=== PATIENT | female | born 1935 | race Caucasian/White ===

== ENCOUNTER 2016-10-18 21:02 | Emergency (ER) | payer OTHER ==
[2016-10-18 21:28] VITALS: TEMP 98.4; O2SAT 94
[2016-10-18] MEDS ORDERED: PROPARACAINE 0.5% 15 ML OPHT DROP ONE (22:25)
[2016-10-18] MEDS ORDERED: TETRACAINE 0.5% 15 ML OPHT.BTL EACHEYE ONE (22:29)
--- NOTE | 2016-10-18 22:29 | EDPHY ---
H & P Stated Complaint: c/o redness/burning in bilat eyes x approx 2 hrs, gardening when started Time Seen by Provider: 10/18/16 22:22 HPI/ROS: HPI The patient presents with bilateral eye pain for the last 2 hours. She was doing bleeding in the garden for several hours. She went inside and tried to insert her contact lenses and touched her eyes. A few minutes after she experienced a burning sensation in her eyes. She removed her contacts and flushed her eyes with water but had continued pain. She comes in now. She is having clear drainage and redness from both of her eyes. The pain is been constant, moderate in severity. She does not have any changes in her vision.. REVIEW OF SYSTEMS Constitutional: No fever, no chills. Eyes: Positive for discharge. ENT: No sore throat. Skin: No rashes. Neurological: No headache. PHYSICAL General Appearance: Alert, no distress Eyes: Pupils equal and round no pallor or injection EYE EXAM Visual Acuity: noted from Nurse's notes. Pupils: equal round and reactive to light EOMI Skin: Mild periorbital erythema Conjunctivae: Diffusely injected, no discharge ENT, Mouth: Mucous membranes moist Respiratory: Breathing comfortably Neurological: A&O, moves all extremities Skin: Warm and dry, no rashes Musculoskeletal: Neck is supple non tender Extremities: symmetrical, full range of motion Psychiatric: Patient is oriented X 3, there is no agitation Source: Patient Exam Limitations: No limitations - Personal History Tetanus Vaccine Date: <10 years - Medical/Surgical History Hx Asthma: No Hx Chronic Respiratory Disease: No Hx Diabetes: No Hx Cardiac Disease: Yes Hx Renal Disease: No Hx Cirrhosis: No Hx Alcoholism: No Hx HIV/AIDS: No Hx Splenectomy or Spleen Trauma: No Other PMH: htn, aortic stenosis, anxiety, MVR 06/22/13, aortic valve replacement , lacrimal duct obst surg, appendectomy, nasal surg - Social History Smoking Status: Never smoked Constitutional: Initial Vital Signs Temperature (C) 36.9 C 10/18/16 21:24 Heart Rate 81 10/18/16 21:24 Respiratory Rate 18 10/18/16 21:24 Blood Pressure 161/99 H 10/18/16 21:24 O2 Sat (%) 94 10/18/16 21:24 O2 Delivery Mode Room Air Allergies/Adverse Reactions: azithromycin Allergy (Verified 10/18/16 21:28) paroxetine HCl [From Paxil] Allergy (Verified 10/18/16 21:28) malaria medication Allergy (Uncoded 11/12/13 22:50) Home Medications: Medication Instructions Recorded Aspirin [Aspirin 81mg (OTC)] 07/06/13 Cholecalciferol Vit D3 [Vitamin D3 07/06/13 (OTC)] Cyanocobalamin [Vitamin B12 (OTC)] 07/06/13 Olmesartan Medoxomil [Benicar] 0 mg PO 07/06/13 Fish Oil 1,[address] 10/18/16 Medical Decision Making Differential Diagnosis: This is an 81-year-old female who presents with bilateral eye pain which occurred after doing reading in the garden and then inserting contact lenses. She has normal visual acuity. I feel there is some sort of irritant from her wheezing that was on her hands that then entered her eyes when she put in her contact lenses. She has since removed them. Plan for tetracaine and eye irrigation in the emergency room. Differential diagnosis includes atopic conjunctivitis, viral conjunctivitis, less likely bacterial conjunctivitis. After irrigation, the patient felt much better. I will discharge her with artificial tears and antibiotic eyedrops. I have instructed her to use cool compresses. Upon further history it appears that the patient was weeding [place] splurge which likely got into her eyes. - Data Points Medications Given: Discontinued Medications Diphenhydramine HCl (Benadryl) 25 mg PO EDNOW ONE Stop: 10/18/16 23:00 Last Admin: 10/18/16 23:21 Dose: 25 mg Ofloxacin (Ocuflox 0.3% Opht Drops Prepack) 1 btl TAKEHOME EDNOW ONE Stop: 10/18/16 23:01 Last Admin: 10/18/16 23:19 Dose: 1 btl Tetracaine HCl (Tetracaine 0.5%) 1 drops EACHEYE ONCE ONE Stop: 10/18/16 22:30 Last Admin: 10/18/16 22:38 Dose: 1 drop Departure - Departure Disposition: Home, Routine, Self-Care Clinical Impression: Conjunctivitis Condition: Good Instructions: Conjunctivitis (ED) Additional Instructions: Please avoid wearing her contact lenses for the next 1 week. You should follow up with Ophthalmology if your symptoms continue at all. Referrals: Parker Puentes MD [Primary Care Provider] - As per Instructions Rakesh Mchugh MD [Medical Doctor] - As per Instructions
[2016-10-18] MEDS ORDERED: diphenhydrAMINE 25 MG CAP PO ONE (22:59)
[2016-10-18] MEDS ORDERED: OFLOXACIN 0.3% SOLN PREPACK OPHT.BTL TAKEHOME ONE (23:00)
[2016-10-18 23:19] VITALS: BP 129/80; PULSE 80; RESP 16
== END 2016-10-18 23:24 | disposition home or self-care (01) ==
DX: H10.9 Unspecified conjunctivitis (principal); I10 Essential (primary) hypertension; Z79.82 Long term (current) use of aspirin

== ENCOUNTER → 2016-12-06 | Outpatient (CLI) | payer OTHER | LOC: FIMAGING 11:03 | PROVIDERS: ATTEND Physician Assistant | DX: R04.2 Hemoptysis (principal); I25.10 Atherosclerotic heart disease of native coronary artery without angina pectoris; R93.8 Abnormal findings on diagnostic imaging of other specified body structures; R59.9 Enlarged lymph nodes, unspecified ==

== ENCOUNTER 2017-01-01 16:24 | Emergency (ER) | payer OTHER ==
--- NOTE | 2017-01-01 16:58 | EDPHY ---
HPI/HX/ROS/PE/MDM Narrative: CHIEF COMPLAINT:Abnormal vision, chest pain HPI: The patient is an 81-year-old female with a history of CAD and aortic valve replacement. She describes substernal/left-sided chest pressure that has been present for a week. No clear exacerbating or relieving factors. She also states that earlier today she leaned forward and felt like her eyes were not aligning properly. She is unable to tell me whether she had double vision at that time or not. She states those symptoms lasted for less than a minute. She denies vision loss. She is now back to normal, but concerned about possible stroke. She takes a daily baby aspirin. REVIEW OF SYSTEMS: Aside from elements discussed in the HPI, a comprehensive 10-point review of systems was reviewed and is negative. PMH:Includes aortic valve repair, CAD. No history of CVA. SOCIAL HISTORY: Denies alcohol or drug abuse. PHYSICAL EXAM: General:Patient is alert, in no acute distress. ENT:Eyes are normal to inspection. ENT inspection normal. Neck: Normal inspection. Full range of motion. Respiratory:No respiratory distress. Breath sounds normal bilaterally. Cardiovascular: Regular rate and rhythm. Strong peripheral pulses. Normal cap refill. Abdomen:The abdomen is nontender to palpation. There are no peritoneal signs. There are normal bowel sounds. Back: Normal to inspection. No tenderness to palpation. Skin: Normal color. No rash. Warm and dry. Extremities: Normal appearance. Full range of motion. Neuro: Oriented x3. Normal motor function. Normal sensory function. No pronator drift. No dysmetria. Normal CN II-XII. ED Course: On re-evaluation at 7:00 p.m., the patient continues to feel fine and asymptomatic. I offered her admission the hospital for further observation but she declines. MDM: This patient presents with a very brief episode of what sounds like possible diplopia although this is an atypical description, as well as the approximately 1 week of constant mild chest pain. Regarding her chest pain, she has a negative EKG and troponin after a significant amount of time with constant chest pain, so I think that acute coronary syndrome is very unlikely. There is no evidence of pneumonia, PE or thoracic aortic dissection. Her brief vision issue is difficult to pin down. She has a normal MRI which excludes significant TECHNICAL RECRUITER disease such as stroke or bleed. I think she requires further neurology evaluation for this as well as an incidental finding of scattered calcifications of her brain. She was informed of this finding as well as the need for follow-up. - Data Points Imaging Results: Imaging Impressions Chest X-Ray 01/01/17 16:44 Impression: 1. Suspect scarring/atelectasis at the left lung base. 2. No definite acute cardiopulmonary abnormality is identified. Brain MRI 01/01/17 17:25 Impression: 1. No visible etiology for the patient's diplopia. 2. Multiple new small bilateral foci of susceptibility-weighted hypointensity, suggesting hemosiderin deposition, which could be related to interval trauma, amyloid angiopathy, occult vascular malformations, or other etiology. Interval development of calcifications could also have this appearance. 3. Atrophy, with white matter change most likely related to chronic microvascular ischemic gliosis. Findings discussed with Eduin Bhatt M.D., on January 01, 2017 at 1848. Laboratory Results: Laboratory Results 01/01/17 17:10 01/01/17 17:10 01/01/17 01/01/17 17:10 17:10 WBC 6.05 10^3/uL 10^3/uL (3.80-9.50) RBC 5.03 10^6/uL 10^6/uL (4.18-5.33) Hgb 14.8 g/dL g/dL (12.6-16.3) Hct 43.2 % % (38.0-47.0) MCV 85.9 fL fL (81.5-99.8) MCH 29.4 pg pg (27.9-34.1) MCHC 34.3 g/dL g/dL (32.4-36.7) RDW 12.9 % % (11.5-15.2) Plt Count 169 10^3/uL 10^3/uL (150-400) MPV 10.1 fL fL (8.7-11.7) Neut % (Auto) 66.4 % % (39.3-74.2) Lymph % (Auto) 22.1 % % (15.0-45.0) [place] % (Auto) 9.1 % % (4.5-13.0) Eos % (Auto) 1.3 % % (0.6-7.6) Baso % (Auto) 0.8 % % (0.3-1.7) Nucleat RBC Rel Count 0.0 % % (0.0-0.2) Absolute Neuts (auto) 4.01 10^3/uL 10^3/uL (1.70-6.50) Absolute Lymphs (auto) 1.34 10^3/uL 10^3/uL (1.00-3.00) Absolute Monos (auto) 0.55 10^3/uL 10^3/uL (0.30-0.80) Absolute Eos (auto) 0.08 10^3/uL 10^3/uL (0.03-0.40) Absolute Basos (auto) 0.05 10^3/uL 10^3/uL (0.02-0.10) Absolute Nucleated RBC 0.00 10^3/uL 10^3/uL (0-0.01) Immature Gran % 0.3 % % (0.0-1.1) Immature Gran # 0.02 10^3/uL 10^3/uL (0.00-0.10) Sodium 139 mEq/L mEq/L (134-144) Potassium 3.8 mEq/L mEq/L (3.5-5.2) Chloride 102 mEq/L mEq/L (97-110) Carbon Dioxide 22 mEq/l mEq/l (22-31) Anion Gap 15 mEq/L mEq/L (8-16) BUN 17 mg/dL mg/dL (7-23) Creatinine 0.7 mg/dL mg/dL (0.6-1.0) Estimated GFR > 60 Glucose 93 mg/dL mg/dL (70-100) Calcium 10.0 mg/dL mg/dL (8.5-10.4) Troponin I < 0.012 ng/mL ng/mL (0.000-0.034) General Time Seen by Provider: 01/01/17 16:41 Initial Vital Signs: Initial Vital Signs Temperature (C) 36.8 C 01/01/17 16:29 Heart Rate 96 01/01/17 16:29 Respiratory Rate 16 01/01/17 16:29 Blood Pressure 194/112 H 01/01/17 16:29 O2 Sat (%) 94 01/01/17 16:29 O2 Delivery Mode Room Air Allergies/Adverse Reactions: azithromycin Allergy (Verified 01/01/17 16:28) paroxetine HCl [From Paxil] Allergy (Verified 01/01/17 16:28) malaria medication Allergy (Uncoded 11/12/13 22:50) Home Medications: Medication Instructions Recorded Aspirin [Aspirin 81mg (OTC)] 07/06/13 Cholecalciferol Vit D3 [Vitamin D3 07/06/13 (OTC)] Cyanocobalamin [Vitamin B12 (OTC)] 07/06/13 Olmesartan Medoxomil [Benicar] 0 mg PO 07/06/13 Fish Oil 1,[address] 10/18/16 Pravastatin Sodium 01/01/17 Departure - Departure Disposition: Home, Routine, Self-Care Clinical Impression: Chest pain Condition: Good Instructions: Chest Pain (ED) Additional Instructions: Follow-up with your primary doctor within 72 hours. Return to the Emergency Department for fever, chest pain, shortness of breath, increasing pain or other worsening of condition. Follow up with a eyelet cutter for further testing, as soon as possible, within one week. We would be happy to reevaluate you and observe you in the hospital at any time. Your head CT shows some very small calcifications in your brain, which are likely not related to your symptoms. We recommend you follow-up with a neurologist for further evaluation within on week. Referrals: Parker Puentes MD [Primary Care Provider] - As per Instructions
--- NOTE | 2017-01-01 17:00 | CPEKG ---
Heart Rate: 83 RR Interval: 723 P-R Interval: 176 QRSD Interval: 86 QT Interval: 388 QTC Interval: 456 P [place]: 31 QRS [place]: 2 T Wave [place]: 60 EKG Severity - NORMAL ECG - EKG Impression: SINUS RHYTHM Electronically Signed By: Stephane Dunham 03-Jan-2017 08:09:28
[2017-01-01 17:17] LABS: % IMMATURE GRANULYOCYTES 0.3 % (0.0-1.1); ABSOLUTE IMMATURE GRANULOCYTES 0.02 10^3/uL (0.00-0.10); ADD DIFF? NO; ADD MORPH? NO; ADD SCAN? NO; ATYPICAL LYMPHOCYTE FLAG 0 (0-99); FRAGMENT RBC FLAG 0 (0-99); HEMATOCRIT 43.2 % (38.0-47.0); HEMOGLOBIN 14.8 g/dL (12.6-16.3); LEFT SHIFT FLG 10 (0-99); LIPEMIA HEMOLYSIS FLAG 90 (0-99); MEAN CELL HEMOGLOBIN 29.4 pg (27.9-34.1); MEAN CELL HEMOGLOBIN CONCENTR. 34.3 g/dL (32.4-36.7); MEAN CELL VOLUME 85.9 fL (81.5-99.8); MEAN PLATELET VOLUME 10.1 fL (8.7-11.7); PLATELET CLUMPS FLAG 10 (0-99); PLATELET COUNT 169 10^3/uL (150-400); RED BLOOD CELL COUNT 5.03 10^6/uL (4.18-5.33); RED CELL DISTRIBUTION WIDTH 12.9 % (11.5-15.2)
[2017-01-01 17:30] LABS: ANION GAP 15 mEq/L (8-16); CARBON DIOXIDE 22 mEq/l (22-31); CHLORIDE 102 mEq/L (97-110); POTASSIUM 3.8 mEq/L (3.5-5.2); SODIUM 139 mEq/L (134-144)
[2017-01-01 17:31] LABS: CREATININE 0.7 mg/dL (0.6-1.0); GLOMERULAR FILTRATION RATE > 60; GLUCOSE 93 mg/dL (70-100)
[2017-01-01 17:42] LABS: TROPONIN I < 0.012 ng/mL (0.000-0.034)
[2017-01-01 19:49] VITALS: BP 161/94; PULSE 87; RESP 16; TEMP 100.2; O2SAT 93
== END 2017-01-01 19:38 | disposition home or self-care (01) ==
DX: R07.89 Other chest pain (principal); I25.10 Atherosclerotic heart disease of native coronary artery without angina pectoris; Z79.82 Long term (current) use of aspirin

== ENCOUNTER → 2017-02-22 | Outpatient (CLI) | payer OTHER | LOC: FIMAGING 15:45 | PROVIDERS: ATTEND Nurse Practitioner Women's Health | DX: Z12.31 Encounter for screening mammogram for malignant neoplasm of breast (principal) | CPT/HCPCS: G0202 ==

== ENCOUNTER → 2017-03-29 | Outpatient (CLI) | payer OTHER | LOC: EEVIPCON 10:28 → FIMAGING 10:28 | PROVIDERS: ATTEND Nurse Practitioner Women's Health | DX: R97.1 Elevated cancer antigen 125 [CA 125] (principal); N83.201 Unspecified ovarian cyst, right side; D25.9 Leiomyoma of uterus, unspecified ==

== ENCOUNTER → 2017-06-14 | Outpatient (CLI) | payer OTHER | LOC: FIMAGING 09:34 | PROVIDERS: ATTEND Nurse Practitioner Women's Health | DX: Z09 Encounter for follow-up examination after completed treatment for conditions other than malignant neoplasm (principal); D25.9 Leiomyoma of uterus, unspecified; N83.8 Other noninflammatory disorders of ovary, fallopian tube and broad ligament ==

== ENCOUNTER 2017-06-17 19:48 | Emergency (ER) | payer OTHER ==
[2017-06-17 19:54] VITALS: TEMP 98.8
--- NOTE | 2017-06-17 20:03 | EDPHY ---
H & P Time Seen by Provider: 06/17/17 19:58 HPI/ROS: CHIEF COMPLAINT: Chest pain HISTORY OF PRESENT ILLNESS: This patient is an 81 year old female with history of CAD and aortic valve replacement complaining of chest pain. She is currently undergoing radiation treatment for basal cell carcinoma at the tip of her nose. Following her treatment, her nose and eyes felt very dry and she was evaluated by an automotive collision repair instructor. She used a cream in her nose, which helped the dryness. Over the past few days, she has developed a persistent bad smell in her nose. This morning, she woke with left-sided chest pain which has worsened throughout the day. This discomfort is increased with deep inspiration and with movement. She has felt mildly short of breath with exertion. She has history of a severe eye infection following her aortic valve replacement, and is concerned regarding the possibility of complications from a possible nasal infection including sepsis or endocarditis. She called an infections disease specialist regarding this, who recommended she present to the emergency department for evaluation of her concerns. The patient takes ASA 81mg daily and is not otherwise anticoagulated. She denies fever, vomiting, diarrhea, urinary complaints, or other associated symptoms. REVIEW OF SYSTEMS: A 10 point review of systems was performed and is negative with the exception of the elements mentioned in the history of present illness. 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 at bedside. Retired. Nonsmoker. Smoking Status: Never smoked Physical Exam: General Appearance: Alert, pleasant, nontoxic Eyes: Pupils equal and round, no conjunctival injection ENT, Mouth: Maceration of the nasal septum, no drainage Neck: Normal inspection, no adenopathy Respiratory: Lungs are clear to auscultation Cardiovascular: Regular rate and rhythm Gastrointestinal: Abdomen is soft and non-tender Neurological: A&O, nonfocal exam Skin: Warm and dry Extremities: normal inspection Psychiatric: Mood and affect normal Constitutional: Initial Vital Signs Temperature (C) 37.1 C 06/17/17 19:51 Heart Rate 100 06/17/17 19:51 Respiratory Rate 22 H 06/17/17 19:51 Blood Pressure 157/94 H 06/17/17 19:51 O2 Sat (%) 95 06/17/17 19:51 O2 Delivery Mode Room Air Allergies/Adverse Reactions: azithromycin Allergy (Verified 01/01/17 16:28) paroxetine HCl [From Paxil] Allergy (Verified 01/01/17 16:28) malaria medication Allergy (Uncoded 11/12/13 22:50) Home Medications: Medication Instructions Recorded Aspirin [Aspirin 81mg (OTC)] 07/06/13 Cholecalciferol Vit D3 [Vitamin D3 07/06/13 (OTC)] Cyanocobalamin [Vitamin B12 (OTC)] 07/06/13 Olmesartan Medoxomil [Benicar] 0 mg PO 07/06/13 Fish Oil 1,[address] 10/18/16 Pravastatin Sodium 01/01/17 Ranitidine HCl 06/17/17 Sulfamethox/Tmp 800/160 mg 1 tab PO BID #14 tab 06/17/17 [Bactrim Ds] Medical Decision Making - Diagnostics EKG Interpretation: EKG interpreted by me reveals normal sinus rhythm, rate 91, poor R-wave progression, no ST or T segment changes. Interpretation: Abnormal EKG Imaging Results: Chest X-Ray 06/17/17 20:00 Impression: No evidence for acute cardiopulmonary abnormality. Chronic findings, as above, which are stable. ED Course/Re-evaluation: After an extensive conversation with this patient, the patient appears to be most concerned about the possibility of endocarditis. She is concerned that she has a sinus infection, which has been untreated and has now led to endocarditis. However, she has not had a fever, chills or other systemic symptoms. Her intranasal exam reveals maceration of the nasal septum; she does not have facial pain; I do not suspect sinusitis, but given foul odor, will plan to place pt on abx. Labs/CXR ordered. CTA ordered because of elevated ddimer. CTA negative, results d/w pt and . I do not suspect endocarditis; afebrile, no leukocytosis. Will place pt on abx for foul intranasal odor, and have her f/u with ENT. Prefers to not take Augmentin, will place on Bactrim. Differential Diagnosis: Differential diagnosis includes though it is not limited to pneumonia, pneumothorax, pulmonary embolism, aortic dissection, pericarditis, acute coronary syndrome. - Data Points Laboratory Results: Laboratory Results 06/17/17 20:30 06/17/17 20:30 Medications Given: Discontinued Medications Trimethoprim/Sulfamethoxazole (Bactrim Ds) 1 ea PO EDNOW ONE PRN Reason: Protocol Stop: 06/17/17 21:57 Last Admin: 06/17/17 22:01 Dose: 1 ea Departure - Departure Disposition: Home, Routine, Self-Care Clinical Impression: Chest pain Qualifiers: Chest pain type: intercostal pain Qualified Code(s): R07.82 - Intercostal pain Condition: Good Instructions: Chest Pain (ED) Additional Instructions: 1. Follow up with your Ear, Nose, and Throat provider for re-evaluation of your nose. 2. Take Bactrim as prescribed. 3. Return to the Emergency Department for fever, chest pain, shortness of breath , increasing pain or other worsening of condition. Referrals: Elie Rojas MD [Medical Doctor] - As per Instructions Prescriptions: Sulfamethox/Tmp 800/160 mg [Bactrim Ds] 1 tab PO BID #14 tab Report Scribed for: Mariza Shay Report Scribed by: Ami Cano Date of Report: 06/17/17 Time of Report: 20:03 Physician Review and Approval Statement: 06/17/17 20:03 Portions of this note were transcribed by a biomedical analytical scientist. I personally performed a history, physical exam, medical decision making, and confirmed accuracy of information the transcribed note.
--- NOTE | 2017-06-17 20:05 | CPEKG ---
Heart Rate: 91 RR Interval: 659 P-R Interval: 184 QRSD Interval: 86 QT Interval: 364 QTC Interval: 448 P [place]: 42 QRS [place]: 44 T Wave [place]: 63 EKG Severity - ABNORMAL ECG - EKG Impression: SINUS RHYTHM EKG Impression: ABNRM R PROG, CONSIDER ASMI OR LEAD PLACEMENT Electronically Signed By: Mariza Shay 17-Jun-2017 22:58:06
[2017-06-17 20:44] LABS: PLATELET COUNT 173 10^3/uL (150-400)
[2017-06-17] MEDS ORDERED: IOPAMIDOL (ISOVUE 370) 100 ML BTL IV ONE (21:20)
[2017-06-17 21:48] VITALS: RESP 16
[2017-06-17] MEDS ORDERED: SULFAMETHOX/TMP 800/160 MG 1 TAB PO ONE (21:56)
[2017-06-17 22:08] VITALS: BP 135/89; PULSE 79; O2SAT 97
== END 2017-06-17 22:08 | disposition home or self-care (01) ==
DX: R07.82 Intercostal pain (principal); I10 Essential (primary) hypertension; I25.10 Atherosclerotic heart disease of native coronary artery without angina pectoris; Z79.82 Long term (current) use of aspirin
CPT/HCPCS: 71046; 71275; 93005; 99285; Q9967

== ENCOUNTER → 2017-09-27 | Outpatient (CLI) | payer OTHER | LOC: BHFA 09:30 | PROVIDERS: ATTEND Internal Medicine Cardiovascular Disease | DX: I25.10 Atherosclerotic heart disease of native coronary artery without angina pectoris (principal); I10 Essential (primary) hypertension; I38 Endocarditis, valve unspecified; R06.02 Shortness of breath | CPT/HCPCS: 78452; 93017; A9500; J2785 ==

== ENCOUNTER 2017-10-04 10:36 | Inpatient (IN) | payer OTHER ==
[2017-10-04 16:05] LABS: PLATELET COUNT 185 10^3/uL (150-400)
[2017-10-04] MEDS ORDERED: LORazepam 1 MG TAB PO PRN (16:07)
--- NOTE | 2017-10-04 17:07 | GHP ---
[f rep st] HISTORY AND PHYSICAL DATE OF ADMISSION: 10/04/2017 HISTORY OF PRESENT ILLNESS: The patient is an 82-year-old female with a history of aortic valve repl acement as well as blurred vision for somewhere between 2 weeks and 3-6 months, who has recently been seen by her clay temperer son with a possible visual field cut. She had an outpatient MRI reveali ng some infiltration of her retroorbital muscles. She had a biopsy of edematous muscle in her left t emporal region. She is referred today for IV steroids and ongoing workup. The patient has no fever. She has had 11-pound weight loss, some subjective chills, but no drenching fevers. She does not have rash on her skin, swelling in her joints. She has no personal or family history of rheumatologic disease. She had recent thyroid studies that were normal. She was seen in this ER in June of this year with blurred vision. A brain MRI at that time did not show any evidenc e of retroorbital findings. I reviewed and interpreted those images myself and compared them to her recent [id number] MRI. I discussed the case at length with Dr. Mera Ojeda. She has not had shor tness of breath or cough. She does not take blood thinners. She has not had nausea, vomiting, or di arrhea. She has not noticed blood in her urine. She has recently traveled to [facility]. Review of systems: Complete 10-point review of systems conducted negative except as noted in the HPI . PAST MEDICAL HISTORY: Aortic valve replacement, 2013. She had an orbital cellulitis sometime after that, requiring IV antibiotics and some surgical drainage. She had a recent ER visit for a possible nasal infection that was treated with Bactrim. Hypertension. Hyperlipidemia. SOCIAL HISTORY: She lives part-time in [place], part-time in [place], [place]. No tobacco. No alc ohol. FAMILY HISTORY: Son is at the bedside, has thyroid issues. ALLERGIES: Azithromycin, paroxetine, and malaria medication. HOME MEDICATIONS: Pending at this time. In the past, that include aspirin, vitamin D3, cyanocobalam in, fish oil, olmesartan, ranitidine. PHYSICAL EXAM: VITALS: Today blood pressure 142/73. Pulse 84. Breathing 16 times a minute. 90% o n room air. GENERAL: No acute distress. HEENT: Sclerae anicteric. She has some swollen muscle on the left side of her face. Her right eye is normal. I did not do visual field cut or funduscopic e xam. Oropharynx is clear. Mucous membranes are moist. NECK: Supple. No lymphadenopathy or JVD. LUNGS: Clear to auscultation bilaterally. HEART: S1, S2. There is a systolic murmur heard at the left lower sternal border. ABDOMEN: Soft, nontender, nondistended. LOWER EXTREMITIES: No edema. Calves nontender. Her ankles, knees, elbows, and shoulders are without warmth or erythema. NEUROLOG IC: Grossly nonfocal. LABS: Multiple labs are pending at this time. She has a history of normal CBC and chem-7. She has recent thyroid studies just 10 days ago that are normal. MRIs are as discussed in the HPI. I discus sed the case with Dr. Mera Ojeda. REVIEW OF SYSTEMS: Patient presents with possible visual loss with retroorbital findings concerning for possible lymphoma. IMPRESSION AND PLAN: 1. Visual loss. She had a recent biopsy, although it was not of her temporal artery. It is reasona ble to consider temporal arteritis as well as lymphoma in a variety of rheumatologic conditions. Her biopsy has been performed; it is pending at this time. We will go ahead and start her on pulsed dos e steroids. 2. She had a large rheumatologic and infectious workup. 3. History of aortic valve replacement. The patient is not anticoagulated. She is not in heart darrell lure. 4. Hypertension. We will continue her medicines once they have been reconciled. 5. Prophylaxis. Patient may require further biopsies. Will follow for now. Will go with SCDs. 6. Disposition: Inpatient status for now. Will follow. /[id number]/MODL
[2017-10-04] MEDS ORDERED: IOPAMIDOL (ISOVUE-300) 100 ML BTL ONE ×2 (17:45→22:12)
[2017-10-04] MEDS: LORazepam 0.5 MG TAB PO PRN (20:18)
[2017-10-04] MEDS: methylPREDNISolone SOD SUCC 500 MG in D5W 100 ML IV SCH (20:18)
[2017-10-04] MEDS: MAGNESIUM OXIDE 400 MG TAB PO SCH (21:28)
[2017-10-04] MEDS: PRAVASTATIN SODIUM 20 MG TAB PO SCH (21:28)
--- NOTE | 2017-10-04 23:53 | GCON ---
[f rep st] CONSULTATION DATE OF CONSULTATION: 10/04/2017 REASON FOR CONSULTATION: Bilateral orbital masses. HISTORY OF PRESENT ILLNESS: Mrs. Awad is an 82-year-old woman admitted today for further evaluation of bilateral orbital masses and loss of vision. She reports visual difficulties beginning several months ago. Her son-in-law, Sury Lui Garcia, is an software design analyst in [place]. She spends part of her time in [place] and part of her time in [place]. She reports that her vision has been worsening. Her PCP in [place] noted swelling over her left face ( druze), which she had not noticed. She returned to [place] a few weeks ago. Her son-in-law noticed the swelling and ordered an MRI. This was performed yesterday at [place]. This demonstrated enlargement of the temporalis muscles bilaterally, left greater than right. No focal enhancing mass. Soft tissue masses were seen in the orbital apices bilaterally. Right orbital apex mass measured 1.9 x 1.6 cm, left orbital apex mass measured 1.5 x 0.9 cm. This is mentioned only in the addendum, which also reports "infiltrative lesions above the maxillary sinuses inferiorly." Lymphoma was suggested. Her son-in- law's partner, Dr. Gordon Riddle, an oculoplastic surgeon, performed a biopsy in the office this morning of the left temporal abnormality. This was delivered to the pathology department at [facility] this morning. Mrs. Awad reports no eye pain, photophobia, diplopia. She has felt that she has had some low-grade fevers and sweats over the last few weeks. She reports losing weight, unknown amount. PAST MEDICAL HISTORY: 1. Status post prosthetic aortic valve (for aortic stenosis). 2. Coronary artery disease. 3. Hyperlipidemia. 4. Hypertension. HEALTH CARE MAINTENANCE: She reports a colonoscopy at some point; she cannot recall when. She reports doing Cologuard testing last year. Normal screening mammogram, 02/2017. PAST SURGICAL HISTORY: 1. Aortic valve replacement (bovine AVR by Dr. Pike), 06/2013. 2. Appendectomy. 3. Nasal fracture repair. 4. Ovarian cystectomy. FAMILY HISTORY: No family history of malignancy. SOCIAL HISTORY: She is . She has a son and a daughter. Occasional alcohol. Nonsmoker. She and her live in [place]. REVIEW OF SYSTEMS: CONSTITUTIONAL: Per HPI. HEENT: Per HPI. CARDIOVASCULAR : No exertional chest pain, lower extremity edema, PND, orthopnea. RESPIRATORY : She reports a consultation at [facility] for bronchitis. No specific diagnosis was made. She had a chest CT in November for a cough and 1 episode of hemoptysis. This demonstrated shotty bilateral axillary adenopathy (largest node on the left, 1.6 cm). Partially calcified mediastinal nodes. Abnormal thickening was seen of the subglottic tracheal mucosa. She had a bronchoscopy with Dr. Raphael. I do not have a report. She reports this was unremarkable. No new respiratory symptoms. GI: No dysphagia, odynophagia, abdominal pain, diarrhea, constipation, melena, bright red blood per rectum. LYMPH: No lymphadenopathy. HEMATOLOGIC: No bleeding or bruising. NEUROLOGIC: No new symptoms. MUSCULOSKELETAL: No jaw claudication. Tenderness over the temporal muscles. No new bony complaints. PHYSICAL EXAM: VITAL SIGNS: Blood pressure 142/73, heart rate 85, respirations 16, 90% on room air. GENERAL: She is accompanied by her and son. She is alert, oriented, and in no acute distress. HEENT: No scleral icterus. EOMI. No proptosis. No conjunctivitis. Visible swelling over the left druze with recent incision. NECK: Supple. NODES: No supraclavicular, axillary, inguinal lymphadenopathy. CARDIOVASCULAR: Regular rate and rhythm. No edema. LUNGS: Clear to auscultation bilaterally. ABDOMEN: Soft, nontender , nondistended, without palpable masses. SKIN: Left temporal incision as above. No petechiae, ecchymoses. NEUROLOGIC: Grossly nonfocal. LABORATORY DATA: (09/27/2017) Normal CBC. ESR 14. Normal CMP, LDH. RADIOLOGIC STUDIES: 1. Brain MRI (10/03/2017) as above. I reviewed the images. 2. (06/17/2017) Chest CT angiogram demonstrated no evidence of PE. Calcified right paratracheal and right hilar nodes suggestive of old granulomatous disease , unchanged. 3. (01/01/2017) Brain MRI with moderate diffuse atrophy. No significant findings. Images reviewed. IMPRESSION: 1. Bilateral retro-orbital masses. 2. Vision loss. Retro-orbital masses are certainly concerning for lymphoma, but bilateral disease is uncommon. If this is lymphoma, large cell would be more common this far posterior in the orbit rather than a MALT lymphoma, which would typically involve adnexal structures. This is an extremely difficult place to biopsy. Differential also includes inflammatory disorders, vasculitis, sarcoid, granulomatous disease, etc. Her normal CBC and ESR argue against inflammatory disease. A normal LDH would argue against systemic involvement with large cell lymphoma, although she does endorse some possible B symptoms. I spoke with both Dr. Mac Lu and Dr. Rigo Gonzalez (oculoplastic surgeon). The subacute onset and lack of ocular pain argue against Marshal-Carpenter. While we would typically like to have a tissue diagnosis prior to institution of steroids in order not to alter histology due to possible tumor necrosis, this threat to her vision is felt to institution of steroids. Dr. Garcia has been quite insistent about this as well. I am doubtful the left temporal biopsy will be diagnostic given that her MRI demonstrates muscle edema rather than a focal mass. It is not clear to me how the finding of temporal muscle edema and retro-orbital masses are connected, unless there is a systemic inflammatory disorder present such as a vasculitis, myositis, etc. They are aware that empiric steroids may complicate eventual diagnosis and long-term treatment plan, but that she risks blindness without treatment. Meanwhile, she will have laboratory studies, including vasculitis markers, etc., and CT of the chest, abdomen, and pelvis to evaluate for abnormalities which might point to a systemic process (lymphoma, etc.) It would be very unusual to have a metastatic carcinoma metastasize to the bilateral orbits I have been in contact with her son-in-law, Dr. Garcia, multiple times today. I recommend formal ophthalmology consultation as well. The patient was seen and discussed with Dr. Cruz. /[id number]/MODL MTDD
--- NOTE | 2017-10-05 08:25 | GCON ---
[f rep st] CONSULTATION DATE OF CONSULTATION: 10/04/2017 REASON FOR CONSULTATION: Neck mass and temporal mass. HISTORY OF PRESENT ILLNESS: This is an 82-year-old female who has a several month history of multipl e varying symptoms. It sounds like she had respiratory symptoms that were evaluated with a bronchosc opy in December of last year and was noted to have thickening of the trachea and some bleeding at th at time. No definitive biopsies were able to be performed. Since then, she has had some progressive shortness of breath which has significantly worsened over the past month, with some inspiratory stri byron over the past month. The patient also has noticed decreased vision in the right eye over the pas t 6 months which has also worsened with time. More recently, she has had an 11-pound weight loss ove r the past month, night sweats, fatigue, and overall not feeling well. Over the past few weeks, she has noticed some swelling of her temporal region and itching of her scalp. MRI of the face was done over the past few days and found to have an infiltrative process involving the bilateral orbital apic es, bilateral temporalis muscles, and bilateral maxillary sinuses, and the patient was found to have vision loss in the right eye. Because of this, she underwent a biopsy of the left temporalis muscle today, but unfortunately, the pathologist felt it was nondiagnostic, without any lymphocytic infiltra tion. Because of her worsening vision, she was brought in for admission for further evaluation and t reatment to the hospital. She was also found to have some enlarged lymph nodes in the neck and quest ion whether or not these could be used to get a tissue biopsy. Therefore, I was consulted for furthe r evaluation of the patient. PAST MEDICAL HISTORY: The patient has a history of basal cell carcinoma on the nose which was treate d with a single dose of radiation. She also has other skin cancers on the extremities on the head and neck area. The patient also has a history of aortic valve replacement. No autoimmune d iseases. No diabetes. She has had prior nasal trauma and nasal surgery, including a septoplasty and DCR on the right. PHYSICAL EXAMINATION: GENERAL APPEARANCE: The patient is sitting in bed comfortably. Breathing, bu t with some mild inspiratory stridor or some noisy breathing with inspirations, but no increased work of breathing. She has obvious swelling of the bilateral temporal fossae with a recent procedure on the left side. Some dried blood and some stitches. EARS: The bilateral ear canals and tympanic mem branes are normal. NOSE: Midline septum. No excessive crusting. No mucopus or polyp is seen. CHARLES TH: Patient with significant trismus, which she reports has been happening today since the biopsy wa s done, making evaluation of the mouth somewhat challenging, but the soft palate and hard palate appe ar normal. Tongue appears normal. Floor of mouth appears normal, in addition to the buccal mucosa. FACE: Palpation of the temporal fossa enlargement, it is just firm, without fluctuance or discrete masses. No other lymphadenopathy or masses on the face. The parotid glands appear and feel normal. Bilateral level I with ptotic submandibular glands, and then there is bulky either lymphadenopathy o r involvement of the submandibular glands. It is slightly larger on the left side, but difficult to do bimanual palpation because of her trismus to really well defined out the submandibular gland versu s lymphadenopathy anterior to the submandibular gland. She has normal facial nerve movement. Levels II through V of the neck all feel normal, without any palpable lymph nodes. IMAGING: The patient has an outside MRI that was reviewed of the face, in addition to a CT of the ch est, abdomen, and pelvis which was reviewed with the radiologist and found to have large and bulky re troperitoneal lymph nodes and enlarged inguinal lymph nodes. ASSESSMENT AND PLAN: This is an 82-year-old female with bulky retroperitoneal and inguinal lymphaden opathy, lesions of the orbital apex bilaterally, infiltration of the bilateral temporalis muscles, an d likely lymphadenopathy of the level I submandibular region of the neck; all concerning for lymphoma . PLAN: Unfortunately, the neck is not the easiest place to get tissue for this patient because of the marginal mandibular nerve in association with the submandibular glands. My recommendation is for a consultation with General Surgery for an inguinal lymph node biopsy for a tissue diagnosis. I also r ecommend Ophtho to come in and see the patient, evaluate her vision and come up with a treatment plan , which will likely include steroids, to help preserve her vision while we are trying to get a diagno sis and treatment for the patient. /[id number]/MODL
[2017-10-05] MEDS ORDERED: NS 1,000 ML IV SCH (08:30)
--- NOTE | 2017-10-05 09:03 | PDMN ---
Medical Necessity Medical necessity: est los>2mn for visual loss with retroorbital findings concerning for possible lymphoma; admit for IV steroids, ENT and onc consults; comorbid htn, hld, hx AVR; per order and H&P 10/04/17
[2017-10-05 10:10] LABS: INR 1.04 (0.83-1.16); PROTIME(PATIENT) 13.8 SEC (12.0-15.0)
[2017-10-05] MEDS: OLMESARTAN MEDOXOMIL 20 MG TAB PO SCH (10:31)
[2017-10-05] MEDS: OMEGA-3 FATTY ACIDS 1,000 MG CAP PO SCH (10:31)
[2017-10-05] MEDS: HYDROCHLOROTHIAZIDE 25 MG TAB PO SCH (10:32)
[2017-10-05] MEDS ORDERED: *PHM DO NOT USE-DEXAMETHASONE 0.2 MG/ML IV PED/NEWBORN SYR IV SCH (10:50)
[2017-10-05] MEDS: methylPREDNISolone SOD SUCC 500 MG in D5W 100 ML IV SCH (10:57)
--- NOTE | 2017-10-05 10:59 | SOAPPROG ---
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 Dr. Osullivan will take the patient to the OR today for an excisional biopsy of an inguinal lymph nodes today. Pathology has been contacted regarding the biopsy and will come in today. Subjectively her vision is better. Opthamology consult has been requested, and they will see her today to continue to closely monitor her visual schwarz. I had a detailed meeting with the patient, her , daughter, and son in law. I am encouraged by the improvement in her vision with high dose steroids. It is important to have a clear diagnosis before finalizing her treatment plan. I think that continuation of high dose steroids should protect her vision in the short term. I will change her steroids to Dexamethasone 40 mg daily for the next 3 days. This is a steroid dose more typically used in Lymphoma treatment regimens. It is possible that high dose steroids may impact the pathology result, however this is unlikely, and given the concern for her vision, I think continuing this treatment is warranted. Once a formal diagnosis is known, we will determine a more exact treatment plan. She will likely require some form on RUBBER WASHER treatment, likely high dose MTX, though the exact treatment and schedule is impossible to determine at this time. Her normal LDH and clinical course are not suggestive of a high grade lymphoma. The patient and family asked multiple questions which were answered. Case d/w Dr. Cruz and Dr. Osullivan. Total time = 60 minutes Subjective: Patient feels that her vision has improved. Roscoe perception returning. She was able to tolerate high dose steroids. Surgical LN biopsy planned for today. Family at bedside. Objective: Vital Signs Temp Pulse Resp BP Pulse Ox 36.4 C 99 16 110/80 93 10/05/17 09:30 10/05/17 09:30 10/05/17 09:30 10/05/17 09:30 10/05/17 09:30 Laboratory Results 10/04/17 14:50 10/04/17 10/05/17 10/06/17 05:59 05:59 05:59 Intake Total 1450 Output Total 1900 Balance -450 PT 13.8 SEC (12.0-15.0) 10/05/17 09:54 INR 1.04 (0.83-1.16) 10/05/17 09:54 - Time Spent With Patient Time Spent With Patient: 60 minutes Physical Exam - Physical Exam General Appearance: alert, no apparent distress EENT: PERRL/EOMI Neck: supple, No lymphadenopathy (R), No lymphadenopathy (L) Respiratory: lungs clear Cardiac/Chest: regular rate, rhythm Abdomen: non-tender, soft, No splenomegaly Lymphatic: other (No palpable inguinal adenopathy) Neuro/Psych: alert, normal mood/affect, oriented x 3 ICD10 Worksheet Patient Problems: Problems Problem Status Onset Chest pain Acute
--- NOTE | 2017-10-05 12:01 | GHP ---
[f rep st] HISTORY AND PHYSICAL DATE OF ADMISSION: 10/04/2017 PRESENT ILLNESS: Patient is an 82-year-old female, who has visual disturbances, recently a temporali s muscle biopsy was done which was nondiagnostic. CT scan of chest and abdomen show lymphadenopathy around the aorta, as well as left inguinal area. It is felt she likely has a lymphoma and a biopsy h as been required. She was started yesterday on steroids for her ocular symptoms. Pathologist at [facility] is available to do a frozen section today on the specimen. PAST MEDICAL HISTORY: Unremarkable. PHYSICAL EXAM: Clearly pathological palpable nodes in the left groin area. These are accessible to biopsy under local, particularly with IV sedation. RECOMMENDATIONS/PLAN: Lymph node biopsy under local with IV sedation, left groin, to help document t hat a lymphoma is truly the process here. Risks and benefits of the procedure, including the potenti al for lymphatic leak, were explained to the family. They all wished to proceed. /[id number]/MODL
[2017-10-05] MEDS: DEXAMETHASONE 40 MG in D5W 50 ML IV SCH (12:06)
--- NOTE | 2017-10-05 12:08 | HOSPPROG ---
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 per son in law, her vision is improved today Objective: Vital Signs Temp Pulse Resp BP Pulse Ox 36.6 C 82 16 115/51 L 90 L 10/05/17 11:40 10/05/17 11:40 10/05/17 11:40 10/05/17 11:40 10/05/17 11:40 Laboratory Results 10/04/17 14:50 10/05/17 09:54 10/04/17 10/05/17 10/06/17 05:59 05:59 05:59 Intake Total 1450 Output Total 1900 Balance -450 PT 13.8 SEC (12.0-15.0) 10/05/17 09:54 INR 1.04 (0.83-1.16) 10/05/17 09:54 - Physical Exam Constitutional: no apparent distress, appears nourished Eyes: PERRL, anicteric sclera Ears, Nose, Mouth, Throat: moist mucous membranes, hearing normal Cardiovascular: regular rate and rhythym, no murmur, rub, or gallop Respiratory: no respiratory distress, no rales or rhonchi Gastrointestinal: normoactive bowel sounds, soft, non-tender abdomen Genitourinary: no bladder fullness, No tolliver in urethra Skin: warm, normal color Musculoskeletal: full muscle strength, no muscle tenderness Neurologic: AAOx3 ICD10 Worksheet Patient Problems: Problems Problem Status Onset Chest pain Acute
[2017-10-05] MEDS ORDERED: LIDOCAINE 1% 300 MG/30 ML SDV ONE (12:54)
[2017-10-05] MEDS ORDERED: BUPIVACAINE/EPI 0.5% 30 ML SDV ONE (12:54)
--- NOTE | 2017-10-05 13:12 | PDANEPAE ---
ANE Past Medical History - Pulmonary History Hx Oxygen in Use at Home: No Hx Sleep Apnea: No Sleep Apnea Screening Result - Last Documented: Positive - Endocrine History Hx Diabetes: No ANE Review of Systems Review of Systems: ANE Patient History - Allergies Allergies/Adverse Reactions: azithromycin Allergy (Verified 01/01/17 16:28) paroxetine HCl [From Paxil] Allergy (Verified 01/01/17 16:28) malaria medication Allergy (Uncoded 11/12/13 22:50) - Home Medications Home Medications: Aspirin EC [Aspirin EC 81 mg (*)] 81 mg PO DAILY 10/04/17 [Last Taken 10/03/17] Herbals/Supplements -Info Only 1 ea PO DAILY 10/04/17 [Last Taken 10/04/17] LORazepam [Ativan (*)] 0.5 mg PO HS PRN 10/04/17 [Last Taken 10/03/17] Magnesium Oxide [Magnesium Oxide 400 mg (*)] 400 mg PO HS 10/04/17 [Last Taken 10/03/17] Olmesartan/Hydrochlorothiazide [Benicar Hct 40-12.5 mg Tablet] 1 each PO DAILY 10/04/17 [Last Taken 10/04/17] Holbrook-3 Fatty Acids [Fish Oil 1000 mg (*)] 1,000 mg PO DAILY 10/04/17 [Last Taken 09/27/17] Pravastatin Sodium 20 mg PO HS 10/04/17 [Last Taken 10/03/17] - NPO status NPO Since - Liquids (Date): 10/05/17 NPO Since - Liquids (Time): 00:00 NPO Since - Solids (Date): 10/05/17 NPO Since - Solids (Time): 00:00 - Smoking Hx Smoking Status: Never smoked TEOFILO Labs/Vital Signs - Labs Result Diagrams: 10/04/17 14:50 10/05/17 09:54 - Vital Signs Blood Pressure: 115/51 Heart Rate: 82 Respiratory Rate: 16 O2 Sat (%): 90 Height: 161.29 cm Weight: 59.874 kg ANE Physical Exam - Airway Neck exam: FROM Mallampati Score: Class 2 Mouth exam: normal dental/mouth exam - Pulmonary Pulmonary: no respiratory distress - Cardiovascular Cardiovascular: regular rate and rhythym - ASA Status ASA Status: II ANE Anesthesia Plan Anesthesia Plan: MAC
[2017-10-05] MEDS ORDERED: MIDAZOLAM 2 MG/2 ML VIAL IVP ONE (13:13)
[2017-10-05] MEDS ORDERED: fentaNYL 100 MCG/2 ML INJ ONE (13:20)
[2017-10-05] MEDS ORDERED: PROPOFOL/EMULSION 500 MG/50 ML BOTTLE IV ONE (13:20)
[2017-10-05] MEDS ORDERED: MIDAZOLAM 2 MG/2 ML VIAL ONE (13:31)
[2017-10-05] MEDS ORDERED: NA BICARBONATE 50 MEQ/50 ML VIAL ONE (13:45)
--- NOTE | 2017-10-05 13:59 | ASMTCMCOM ---
CM Note CM Note Notes: Pt too get a biopsy. Pt's DC needs are TBD. Date Signed: 10/05/2017 01:58 PM Electronically Signed By:Maddi Jacobsen LCSW
[2017-10-05] MEDS ORDERED: fentaNYL 100 MCG/2 ML INJ IVP PRN (14:31)
[2017-10-05] MEDS ORDERED: ALBUTEROL 3 ML DEYVIAL IH PRN (14:31)
[2017-10-05] MEDS ORDERED: ONDANSETRON 4 MG/2 ML VIAL IVP PRN (14:31)
[2017-10-05] MEDS ORDERED: NALOXONE HCL 0.4 MG/ML INJ IVP PRN (14:31)
--- NOTE | 2017-10-05 14:32 | POSTANESTH ---
Post Anesthetic Evaluation Cardiovascular Status: Similar to Pre-Op Cond Respiratory Status: Similar to Pre-op Cond. Level of Consciousness/Mental Status: Alert and Oriented Pain Control: Adequate, Prn Tx Ordered Nausea/Vomiting Control: Adequate, Prn Tx Ordered Complications Possibly Related to Anesthesia: None Noted
--- NOTE | 2017-10-05 14:53 | POSTOPPROG ---
Post Op Note Date of Operation: 10/05/17 Surgeon: Daniel Rush Pre-op Diagnosis: lymphadenopathy Post-op Diagnosis: same Indication: same Procedure: left deep inguinal node biopsy Findings: pathologic node Inf/Abcess present in the surg proc area at time of surgery?: No EBL: Minimal
--- NOTE | 2017-10-05 15:32 | GOP ---
[f rep st] OPERATIVE REPORT DATE OF OPERATION: SURGEON: Daniel Rush MD PREOPERATIVE DIAGNOSIS: Lymphadenopathy. POSTOPERATIVE DIAGNOSIS: Lymphadenopathy. PROCEDURE PERFORMED: Deep left inguinal node biopsy. FINDINGS: INDICATIONS: An 82-year-old female with symptoms of lymphoma and lymphadenopathy in left groin. DESCRIPTION OF PROCEDURE: Intravenous sedation, left groin scrubbed with ChloraPrep, draped in usual sterile fashion. Field block established with 0.5% Marcaine mixed with 1% lidocaine. An oblique in cision was made just above the inguinal crease over palpable nodes. Subcutaneous fat was divided and 3 cm x 2 cm node identified and removed. An attempt was made to clip all efferent and afferent lymph atics and vessels to the node to minimize the chance of postoperative lymphatic leak, although this w as explained as a risk to the family. The wound was then closed with layers of absorbable suture and Dermabond. /[id number]/MODL
--- NOTE | 2017-10-05 19:33 | GCON ---
[f rep st] CONSULTATION OPHTHALMOLOGY CONSULTATION DATE OF CONSULTATION: 10/05/2017 REASON FOR CONSULTATION: Decreased vision and orbital inflammation on MRI. HISTORY OF PRESENT ILLNESS: This is an 82-year-old female who has had several months of decreasing v ision that has progressively gotten worse, especially in the right eye. She was seen by multiple oph thalmologists who noted an afferent pupillary defect on the right side as well as a Gallego visual f ield defect inferiorly on the right side. I was called by the hospitalist, Stanley Cruz, to evalua te her eyes today. She did start high-dose steroids yesterday and does feel like her color vision gonzalez s improved, and vision has improved some. PAST MEDICAL HISTORY: Basal cell carcinoma on the nose, aortic valve replacement. EXAMINATION: EYES: Visual acuity today near with glasses was J7 on the right and J6 on the left. P upils did show an afferent pupillary defect on the right side and 50% light intensity on the right si de. Extraocular movements were intact. Gross visual schwarz were intact. Eyelids were normal. Conj unctivae were normal. Corneas were clear. Anterior chamber was deep. Lenses did show 2+ nuclear sc lerosis on both sides. She was dilated with 1% Mydriacyl and 2.5% phenylephrine at 4 o'clock. She w ill continue to be dilated probably until 8 p.m. Fundus: She showed normal optic nerves, blood vess els, maculae and peripheral retinas. IMAGING: I reviewed her outside MRI of her brain and orbits, which did show increased uptake around the optic nerves on both the right greater than left. ASSESSMENT AND PLAN: 1. Loss of vision in the right eye, most likely related to the orbital inflammation that she has, wh ich could possibly be lymphoma. This would explain her afferent pupillary defect as well as her visu al field defect on previous Gallego visual field. I will defer to Oncology and the hospitalist for further treatment in this matter, and she will follow up with her review engineer for further exams. /[id number]/MODL
[2017-10-05] MEDS: MAGNESIUM OXIDE 400 MG TAB PO SCH (20:05)
[2017-10-05] MEDS: PRAVASTATIN SODIUM 20 MG TAB PO SCH (20:05)
[2017-10-05] MEDS: LORazepam 0.5 MG TAB PO PRN (20:05)
[2017-10-06] MEDS: OMEGA-3 FATTY ACIDS 1,000 MG CAP PO SCH (09:18)
[2017-10-06] MEDS: OLMESARTAN MEDOXOMIL 20 MG TAB PO SCH (09:19)
[2017-10-06] MEDS: HYDROCHLOROTHIAZIDE 25 MG TAB PO SCH (09:21)
--- NOTE | 2017-10-06 10:38 | SOAPPROG ---
SOAP Progress Note Assessment/Plan: Assessment: 1) Probable Lymphoma 2) Likely ocular involvement Plan: Her staging CT shows retroperitoneal, mesenteric, and inguinal lymphadenopathy. She had an excisional biopsy of a inguinal lymph node yesterday. I spoke with Dr. Ratliff (pathology) this morning. 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 I have reviewed her MRI brain with radiology. Her ocular disease does not appear to directly involve optic nerve or WOOD INSPECTOR/Brain. I have recommended a Lumbar puncture to be sent for cytology. Assuming that her LP shows no evidence of Lymphoma, I would recommend 6 cycles of Bendamustine/Rituxan. I would repeat a MRI brain after 2 cycles. If she attains a complete response after 6 cycles, I would favor at least 2 cycles of High dose MTX for WOOD INSPECTOR prophylaxis. Subjectively her vision is better. Opthamology has evaluated her, and plans outpatient follow up. I think that we can reduce her Dexamethasone to 20 mg today, and then stop toorrow. Given that this is a low grade process, I think that there is likely minimal benefit to further steroids. I had another detailed meeting with the patient, her , daughter, and son in law. The patient and family asked multiple questions which were answered. If her final path report confirms low grade lymphoma, and her LP is negative, I think that she could go home and get her treatment started as an outpatient. Will plan PET scan as an outpatient. Case d/w Dr. Cruz Total time = 50 minutes Subjective: Fels well. Vision stable from yesterday. Inguinal node biopsy done yesterday. Family (daughter, son, son in law, ) at bedside. Objective: Vital Signs Temp Pulse Resp BP Pulse Ox 36.5 C 66 16 117/66 94 10/06/17 07:45 10/06/17 07:45 10/06/17 07:45 10/06/17 09:21 10/06/17 07:45 Laboratory Results 10/04/17 14:50 10/05/17 09:54 10/05/17 10/06/17 10/07/17 05:59 05:59 05:59 Intake Total 1450 1249 Output Total 1900 1 Balance -450 1248 PT 13.8 SEC (12.0-15.0) 10/05/17 09:54 INR 1.04 (0.83-1.16) 10/05/17 09:54 - Time Spent With Patient Time Spent With Patient: 50 minutes Physical Exam - Physical Exam General Appearance: alert EENT: PERRL/EOMI Skin: normal color Neuro/Psych: no motor/sensory deficits, alert, normal mood/affect ICD10 Worksheet Patient Problems: Problems Problem Status Onset Chest pain Acute
[2017-10-06] MEDS ORDERED: *PHM DO NOT USE-DEXAMETHASONE 0.2 MG/ML IV PED/NEWBORN SYR IV ONE (10:40)
--- NOTE | 2017-10-06 10:55 | SOAPPROG ---
SOAP Progress Note Assessment/Plan: Assessment: Plan: Objective: no swelling at inciisonal site. follow up with me in 1 week, earlier for any swelling Vital Signs Temp Pulse Resp BP Pulse Ox 36.5 C 66 16 117/66 94 10/06/17 07:45 10/06/17 07:45 10/06/17 07:45 10/06/17 09:21 10/06/17 07:45 Laboratory Results 10/04/17 14:50 10/05/17 09:54 10/05/17 10/06/17 10/07/17 05:59 05:59 05:59 Intake Total 1450 1249 Output Total 1900 1 Balance -450 1248 PT 13.8 SEC (12.0-15.0) 10/05/17 09:54 INR 1.04 (0.83-1.16) 10/05/17 09:54 no ICD10 Worksheet Patient Problems: Problems Problem Status Onset Chest pain Acute
[2017-10-06] MEDS ORDERED: DEXAMETHASONE 20 MG in D5W 50 ML IV ONE (11:00)
[2017-10-06] MEDS: DEXAMETHASONE 40 MG in D5W 50 ML IV SCH (11:19)
--- NOTE | 2017-10-06 13:40 | ASMTCMCOM ---
CM Note CM Note Notes: Pt has a likely lymphoma but awaiting final path report. Pt will also get an LP tomorrow. Pending results of LP, pt may DC and f/u with outpt oncology.CM to follow Date Signed: 10/06/2017 01:40 PM Electronically Signed By:Maddi Jacobsen LCSW
--- NOTE | 2017-10-06 13:44 | HOSPPROG ---
Hospitalist Progress Note Assessment/Plan: 82 yo F w likely lymphoma visual deficit: L 2/2 optic nerve infiltration improved on steroids continues to improve inguinal LAD: biopsy c/w lymphoma final path pending LP in AM AVR: bioprosthetic not anticoagulated blood cx negative proph: hold LMWH as having LP in AM dispo: inpt Subjective: case d/w dr marcelino. prelim path s/o low grade follicular lymphoma Objective: Vital Signs Temp Pulse Resp BP Pulse Ox 36.5 C 66 16 117/66 94 10/06/17 07:45 10/06/17 07:45 10/06/17 07:45 10/06/17 09:21 10/06/17 07:45 Laboratory Results 10/04/17 14:50 10/05/17 09:54 10/05/17 10/06/17 10/07/17 05:59 05:59 05:59 Intake Total 1450 1249 Output Total 1900 1 Balance -450 1248 PT 13.8 SEC (12.0-15.0) 10/05/17 09:54 INR 1.04 (0.83-1.16) 10/05/17 09:54 - Physical Exam Constitutional: no apparent distress, appears nourished Eyes: PERRL, anicteric sclera Ears, Nose, Mouth, Throat: moist mucous membranes, hearing normal Cardiovascular: regular rate and rhythym, no murmur, rub, or gallop Respiratory: no respiratory distress, no rales or rhonchi Gastrointestinal: normoactive bowel sounds, soft, non-tender abdomen Genitourinary: no bladder fullness, No tolliver in urethra Skin: warm, normal color Musculoskeletal: full muscle strength, no muscle tenderness Neurologic: AAOx3, sensation intact bilaterally Psychiatric: interacting appropriately ICD10 Worksheet Patient Problems: Problems Problem Status Onset Chest pain Acute
[2017-10-06] MEDS: CHOLECALCIFEROL VIT D3 2,000 UNITS TAB/CAP PO SCH (17:41)
[2017-10-06] MEDS: PROBIOTIC PO SCH (17:42)
[2017-10-06 18:49] LABS: INR 1.05 (0.83-1.16); PROTIME(PATIENT) 13.9 SEC (12.0-15.0)
[2017-10-06] MEDS: PRAVASTATIN SODIUM 20 MG TAB PO SCH (21:49)
[2017-10-06] MEDS: MAGNESIUM OXIDE 400 MG TAB PO SCH (21:49)
[2017-10-06] MEDS: LORazepam 0.5 MG TAB PO PRN (21:49)
[2017-10-07 03:30] LABS: HEPATITIS B CORE AB TOTAL NEGATIVE (NEGATIVE); HEPATITIS B SURFACE ANTIGEN NEGATIVE (NEGATIVE); HEPATITIS C ANTIBODY TOTAL NEGATIVE (NEGATIVE); HIV TYPE 1 AND 2 NEGATIVE (NEGATIVE)
[2017-10-07] MEDS: OLMESARTAN MEDOXOMIL 20 MG TAB PO SCH (09:12)
[2017-10-07] MEDS: CHOLECALCIFEROL VIT D3 2,000 UNITS TAB/CAP PO SCH (09:12)
[2017-10-07] MEDS: HYDROCHLOROTHIAZIDE 25 MG TAB PO SCH (09:12)
[2017-10-07] MEDS: OMEGA-3 FATTY ACIDS 1,000 MG CAP PO SCH (09:12)
[2017-10-07] MEDS: PROBIOTIC PO SCH (09:15)
[2017-10-07] MEDS ORDERED: ALTEPLASE 2 MG VIAL IVP PRN (11:36)
[2017-10-07] MEDS ORDERED: LIDOCAINE 1% 300 MG/30 ML SDV ONE (12:04)
[2017-10-07] MEDS ORDERED: NS IT ONE (12:15)
[2017-10-07] MEDS ORDERED: METHOTREXATE SODIUM IT ONE (12:15)
--- NOTE | 2017-10-07 13:43 | SOAPPROG ---
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 Little unusual situation with involving the region behind the eyes but at this point no obvious signs of MANAGER PROCESS involvement. She is scheduled for a lumbar puncture this afternoon and recommended that she get an intrathecal methotrexate at the same time. If it is clean then the plan would be to go forward with chemotherapy and then consider giving her a couple cycles of consolidative high- dose methotrexate. If it is positive, especially if the lymphoma turns out to be more aggressive than initially thought, denied probably look into adding the methotrexate to the chemotherapy regimen. I spent approximately 50 minutes with the patient and her family answering questions. At this point I am considering a standard chemotherapy if it turns out to be follicular lymphoma using bendamustine plus rituximab. I briefly discussed the risks of chemotherapy including but not limited to low blood counts and nausea vomiting. Because she has difficult venous access, I recommend placing a PICC line which she has had in the past. * Likely ocular involvement: It looks as though she had some palliative relief both with the B symptoms as well as her vision while on dexamethasone. I recommended we continue a low dose such as 4 mg in the morning until we start chemotherapy. She would like to do this as well. * Disposition: I think if she has a PICC line in place and she tolerated the lumbar puncture well, she should be able to go home either this evening or early tomorrow morning. Subjective: She is doing about the same without any acute complaints. She believes her vision has improved a little bit since going on dexamethasone and would like to continue. Her appetite and energy are also better. She is in the room with her and son. Objective: Vital Signs Temp Pulse Resp BP Pulse Ox 36.7 C 82 16 183/89 H 91 L 10/07/17 04:45 10/07/17 08:00 10/07/17 08:00 10/07/17 09:12 10/07/17 08:00 Laboratory Results 10/06/17 18:25 10/05/17 09:54 10/06/17 10/07/17 10/08/17 05:59 05:59 05:59 Intake Total 1249 200 Output Total 1 200 Balance 1248 0 PT 13.9 SEC (12.0-15.0) 10/06/17 18:25 INR 1.05 (0.83-1.16) 10/06/17 18:25 Laboratory Tests 10/04/17 10/04/17 14:50 15:58 Lactate Dehydrogenase 497 Hep Bs Antigen NEGATIVE Hep B Core Total Ab NEGATIVE Hepatitis C Antibody NEGATIVE HIV 1&[address] Scan of the Chest (With Contrast) Impression: 1. No hilar or mediastinal adenopathy. Stable mild axillary lymph node prominence with clinical correlation recommended.. 2. Coronary arterial calcifications incompletely evaluated on this nongated study. 3 see above report for additional findings. CT Scan of the Abdomen and Pelvis With Contrast Impression: 1. Extensive retroperitoneal, mesenteric and inguinal adenopathy is considered suspicious for lymphoma. PET scanning could be considered for further characterization. 2. See above report for additional findings. Dictated By: Rodrigo Clement MD ICD10 Worksheet Patient Problems: Problems Problem Status Onset Chest pain Acute
[2017-10-07] MEDS ORDERED: ASPIRIN EC 81 MG TAB PO SCH (13:44)
--- NOTE | 2017-10-07 17:36 | HOSPPROG ---
Hospitalist Progress Note Assessment/Plan: # extensive in retroperitoneal, inguinal and mesenteric LAD, likely lymphoma - path pending, treatment per onc - s/p LP today with IT mtx - placing PICC tonight - restart decadron 4mg PO daily # visual deficit - d/t infiltration # AVR - bioprosthetic # htn - hctz, olmesartan # hld - pravastatin Subjective: discussed with patient and family on the phone; they would like to stay tnight to have PICC placed Objective: Vital Signs Temp Pulse Resp BP Pulse Ox 36.6 C 84 16 124/76 H 92 10/07/17 13:44 10/07/17 13:44 10/07/17 13:44 10/07/17 13:44 10/07/17 13:44 Laboratory Results 10/06/17 18:25 10/05/17 09:54 10/06/17 10/07/17 10/08/17 05:59 05:59 05:59 Intake Total 1249 200 Output Total 1 200 Balance 1248 0 PT 13.9 SEC (12.0-15.0) 10/06/17 18:25 INR 1.05 (0.83-1.16) 10/06/17 18:25 chart reviewed CTs reviewed - Time Spent With Patient Time Spent with Patient: greater than 35 minutes Time Spent with Patient: Greater than 35 minutes spent on this patients care, greater than 50% of time spent counseling, educating, and coordinating care regarding the above mentioned plan. ICD10 Worksheet Patient Problems: Problems Problem Status Onset Chest pain Acute
[2017-10-07] MEDS: DEXAMETHASONE 4 MG TAB PO SCH (18:21)
[2017-10-07] MEDS: PRAVASTATIN SODIUM 20 MG TAB PO SCH (20:23)
[2017-10-07] MEDS: MAGNESIUM OXIDE 400 MG TAB PO SCH (20:23)
[2017-10-08] MEDS: HYDROCHLOROTHIAZIDE 25 MG TAB PO SCH (09:31)
[2017-10-08] MEDS: OMEGA-3 FATTY ACIDS 1,000 MG CAP PO SCH (09:31)
[2017-10-08] MEDS: CHOLECALCIFEROL VIT D3 2,000 UNITS TAB/CAP PO SCH (09:32)
[2017-10-08] MEDS: OLMESARTAN MEDOXOMIL 20 MG TAB PO SCH (09:32)
[2017-10-08] MEDS: DEXAMETHASONE 4 MG TAB PO SCH (09:32)
[2017-10-08] MEDS: PROBIOTIC PO SCH (09:37)
--- NOTE | 2017-10-08 09:38 | SOAPPROG ---
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 Up front therapy with BR is the same but would definitely give couple cycles of high dose MTX and then use maintenance rituximab. Tolerated LP and the preliminary results look promising. PICC line placed. Once get a definitive diagnosis, will place orders for chemotherapy and follow up. * Likely ocular involvement: It looks as though she had some palliative relief both with the B symptoms as well as her vision while on dexamethasone. I recommended we continue but increase to 4 mg bid until we start chemotherapy. * Disposition: okay to go home per onc standpoint Subjective: No trouble with LP or IT MTX. Had night sweats again last night. Vision is stable-better since steroids. Objective: Vital Signs Temp Pulse Resp BP Pulse Ox 36.5 C 72 16 111/73 92 10/08/17 03:46 10/08/17 03:46 10/08/17 03:46 10/08/17 03:46 10/08/17 03:46 Laboratory Results 10/06/17 18:25 10/05/17 09:54 10/07/17 10/08/17 10/09/17 05:59 05:59 05:59 Intake Total 200 900 Output Total 200 Balance 0 900 PT 13.9 SEC (12.0-15.0) 10/06/17 18:25 INR 1.05 (0.83-1.16) 10/06/17 18:25 Laboratory Tests 10/07/17 12:50 CSF Appearance CLEAR CSF WBC 0 CSF RBC 0 CSF Glucose 70 CSF LDH 116 CSF Total Protein 44 - Time Spent With Patient Time Spent With Patient: 25-30 min Physical Exam - Physical Exam General Appearance: no apparent distress Skin: other (PICC on right without s/sx infection) ICD10 Worksheet Patient Problems: Problems Problem Status Onset Chest pain Acute
[2017-10-08 09:44] VITALS: BP 177/83
--- NOTE | 2017-10-08 11:06 | GDS ---
[f rep st] DISCHARGE SUMMARY ALL DIAGNOSES: 1. Lymphoma, final pathology pending, but suspect mantle cell. 2. 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 3. Aortic valve replacement with a bioprosthetic aortic valve. 4. Hypertension. 5. Hyperlipidemia. HOSPITAL COURSE: 82-year-old female who presented with recent MRI revealing infiltration of her retr oorbital muscle. Initially concerning for temporal arteritis. CT scan was performed, which showed ext ensive lymphadenopathy can concerning for lymphoma. This was biopsied. Final pathology is pending; david avila, is suspected to be mantle cell lymphoma. She has been started on Decadron [address] Ndiaye's office will call and schedule chemotherapy teaching, as well [facility] I have discussed all this with her, as well as family, and she is comfortable with this plan. She had a PICC line placed, as well as a lumbar puncture during which she got intrathecal methotrexate. Cell counts from lumbar puncture reassuring. FOLLOWUP: Dr. Ndiaye as above. PENDING RESULTS: At time of discharge, final pathology from biopsy. BILLING: I spent more than 30 minutes on the day of discharge coordinating care. /[id number]/MODL
--- NOTE | 2017-10-08 11:13 | PDIAF ---
- Diagnosis Diagnosis: Lymphoma Code Status: Full Code - Medication Management Discharge Medications: Medications to Continue on Transfer Aspirin EC [Aspirin EC 81 mg (*)] 81 mg PO DAILY 10/04/17 [Last Taken 10/03/17] Herbals/Supplements -Info Only 1 ea PO DAILY 10/04/17 [Last Taken 10/04/17] Magnesium Oxide [Magnesium Oxide 400 mg (*)] 400 mg PO HS 10/04/17 [Last Taken 10/03/17] Olmesartan/Hydrochlorothiazide [Benicar Hct 40-12.5 mg Tablet] 1 each PO DAILY 10/04/17 [Last Taken 10/04/17] [place]-3 Fatty Acids [Fish Oil 1000 mg (*)] 1,000 mg PO DAILY 10/04/17 [Last Taken 09/27/17] Pravastatin Sodium 20 mg PO HS 10/04/17 [Last Taken 10/03/17] ALPRAZolam [Xanax 0.25 MG (*)] 0.25 mg PO TID PRN #30 tab 10/08/17 [Last Taken Unknown] Dexamethasone [Decadron 4 MG (*)] 4 mg PO BID #60 tab 10/08/17 [Last Taken Unknown] Discharge Medications: Refer to the Discharge Home Medication list for PRN reason. - Orders Services needed: Home Care, Registered Nurse Home Care Face to Face: I certify that this patient was under my care and that I had the required [id number] encounter meeting the encounter requirements on the discharge day. My findings support the fact that the patient is homebound as defined in Home Care Face to Face Continued: CMS Chapter 7 Medicare Benefits Manual 30.1.1 , The condition of the patient is such that there exists a normal inability to leave home and consequently, leaving home would require a considerable and taxing effort. Wound Care Instructions: routine PICC care - Follow Up Care Current Providers and Referrals: Suyapa Ndiaye MD [Medical Doctor] - Patient,NotPresent [Primary Care Provider] -
--- NOTE | 2017-10-08 13:49 | ASMTCMCOM ---
CM Note CM Note Notes: Pt will DC today. Pt has new PICC line and will need daily flushes and weekly dressing changes. Faxed rerral to [facility]. Pt and family are nwevous about flushing the PICC so [employer] will declan LIMA for teaching and weekly dressing changes. Date Signed: 10/08/2017 01:48 PM Electronically Signed By:Maddi Jacobsen LCSW
--- NOTE | 2017-10-08 13:55 | ASMTLACE ---
LACE Length of stay for Answers: 3 days current admission Acuity / Level of Answers: Yes Care: Did the patient have an inpatient admission? Comorbidities - select Answers: Any tumor (including all that apply lymphoma or leukemia) # of Emergency department Answers: 1-2 visits in the last 6 months Score: 9 Date Signed: 10/08/2017 01:54 PM Electronically Signed By:Maddi Jacobsen LCSW
--- NOTE | 2017-10-08 15:15 | ASDISCHSUM ---
Discharge Information Plan Status:Home with Home Health Medically Cleared to Leave: Discharge Date:10/08/2017 01:45 PM D/C Disposition:Home Health Service ADT D/C Disposition:Home, Routine, Self-Care Projected Discharge Date:10/08/2017 11:00 AM Transportation at D/C: Discharge Delay Reason: Follow-Up Date:10/08/2017 11:00 AM Discharge Slot: Final Diagnosis: Placement Information Referral Type:*Home Health Care Services Referral ID:[id number] Provider Name:[facility] [place] [address] [place] [address] 2: City:[place] Selection Factors: State:[place] Referral Type:Home Infusion Referral ID:[id number] Provider Name:[facility] [place] ([facility]ly [facility]) Address 1:[address] [place] [address] Address 2: City:[place] Selection Factors: State:[place] Patient Contact Information Contact Name:ANGE Relationship: Address:[address] Work Phone: City:[place] [facility] Phone: [facility]/Zip Code:[place] [address] Email: Financial Information Financial Class:Medicare Primary Plan Desc:MEDICARE INPATIENT Primary Plan Number:[id number] Secondary Plan Desc:[facility] POS Secondary Plan Number:[id number] Assessment Information LACE LACE Length of stay for Answers: 3 days current admission Acuity / Level of Answers: Yes Care: Did the patient have an inpatient admission? Comorbidities - select Answers: Any tumor (including all that apply lymphoma or leukemia) # of Emergency department Answers: 1-2 visits in the last 6 months Score: 9 Date Signed: 10/08/2017 01:54 PM Electronically Signed By:Maddi Jacobsen LCSW [facility] CM Progress Note CM Note CM Note Notes: Pt too get a biopsy. Pt's DC needs are TBD. Date Signed: 10/05/2017 01:58 PM Electronically Signed By:Maddi Jacobsen LCSW [facility] CM Progress Note CM Note CM Note Notes: Pt has a likely lymphoma but awaiting final path report. Pt will also get an LP tomorrow. Pending results of LP, pt may DC and f/u with outpt oncology.CM to follow Date Signed: 10/06/2017 01:40 PM Electronically Signed By:Maddi Jacobsen LCSW [facility] CM Progress Note CM Note CM Note Notes: Pt will DC today. Pt has new PICC line and will need daily flushes and weekly dressing changes. Faxed rerral to [facility]. Pt and family are nwevous about flushing the PICC so [facility] will declan LIMA for teaching and weekly dressing changes. Date Signed: 10/08/2017 01:48 PM Electronically Signed By:Maddi Jacobsen LCSW Intervention Information Intervention Type:*Incorrect Registration Date of Service:10/04/2017 02:56 PM Patient Type:Observation Staff Member:CLARENCE Acevedo, Maria Esther Hours: Discipline: Severity: Comment: Intervention Type:*IM-Signed Date of Service:10/08/2017 12:28 PM Patient Type:Inpatient Staff Member:Willa Carpenter Hours: Discipline: Severity: Comment:
== END 2017-10-08 13:45 | disposition home health service (06) | DRG 825 ==
LOC: F1N 12:10 → OBSVTOIN 12:41 → F1N 16:03
PROVIDERS: ADMIT Internal Medicine; ATTEND Internal Medicine
PROC: 07BJ0ZX Excision of Left Inguinal Lymphatic, Open Approach, Diagnostic (ICD-10-PCS; principal; 2017-10-05 13:30)
PROC: 009U3ZX Drainage of Spinal Canal, Percutaneous Approach, Diagnostic (ICD-10-PCS; 2017-10-07)
PROC: 3E0R305 Introduction of Other Antineoplastic into Spinal Canal, Percutaneous Approach (ICD-10-PCS; 2017-10-07)
PROC: 02HV33Z Insertion of Infusion Device into Superior Vena Cava, Percutaneous Approach (ICD-10-PCS; 2017-10-07)
DX: C83.18 Mantle cell lymphoma, lymph nodes of multiple sites (principal); I10 Essential (primary) hypertension; E78.5 Hyperlipidemia, unspecified; Z95.3 Presence of xenogenic heart valve; H54.60 Unqualified visual loss, one eye, unspecified
CPT/HCPCS: 82164-90; 83516-90; 83520-90; 85060-90; 86225-90; 86255-90; 86334-90; 86704-90; 88184-90; 88185-91; C1751; G0472; J1100; J2250; J2704; J2930; J3010; J9250; Q9967

== ENCOUNTER 2017-11-03 17:17 | Emergency (ER) | payer OTHER ==
--- NOTE | 2017-11-03 17:48 | CPEKG ---
Heart Rate: 88 RR Interval: 682 P-R Interval: 168 QRSD Interval: 74 QT Interval: 376 QTC Interval: 455 P [place]: 40 QRS [place]: 19 T Wave [place]: 47 EKG Severity - ABNORMAL ECG - EKG Impression: SINUS RHYTHM EKG Impression: ABNRM R PROG, CONSIDER ASMI OR LEAD PLACEMENT EKG Impression: BORDERLINE T WAVE ABNORMALITIES Electronically Signed By: Rober Foster 04-Nov-2017 08:46:05
--- NOTE | 2017-11-03 18:34 | EDPHY ---
H & P Time Seen by Provider: 11/03/17 18:03 HPI/ROS: CHIEF COMPLAINT: Right arm inflamed at the PICC site HISTORY OF PRESENT ILLNESS: Patient is an 82-year-old female with a history of lymphoma who presents emergency department with redness around her PICC line site. Her PICC line was placed 3 weeks ago. On Saturday she had the dressing changed. On Saturday she noticed redness at the dressing change site. She was seen by the cancer care center and started on doxycycline 100 mg twice daily. She comes in today because she has slight increased redness at the entrance site of the PICC line. She has no fevers or chills. She denies any significant arm pain. No numbness or tingling. REVIEW OF SYSTEMS: My complete review of systems is negative except as mentioned in the HPI. Past Medical/Surgical History: Includes lymphoma, aortic stenosis, anxiety Past surgical history: Includes aortic valve replacement, lacrimal duct surgery , appendectomy, nasal surgery Social history: The patient does not smoke Smoking Status: Never smoked Physical Exam: Vitals noted. Afebrile. GENERAL: Well-appearing, in no acute distress, alert. HEENT: Eyes normal to inspection. NECK: Normal appearing. RESPIRATORY: Clear to auscultation bilaterally, no rales, rhonchi or wheezing. CVS: Regular rate and rhythm, no rubs, murmurs, or gallops. ABDOMEN: Normal. SKIN: Normal color, no rash, warm, dry. No pallor. EXTREMITIES: Right brachium with PICC line. There is a small 0.5 cm area of redness at the entrance site of the PICC line. There is no streaking up the arm. No lymphadenopathy. No warmth or tenderness. No palpable mass. NEURO/PSYCH: Alert and oriented x3, normal mood and affect, normal motor sensory exam. Constitutional: Initial Vital Signs Temperature (C) 36.3 C 11/03/17 17:31 Heart Rate 86 11/03/17 17:31 Respiratory Rate 16 11/03/17 17:31 Blood Pressure 121/69 H 11/03/17 17:31 O2 Sat (%) 94 11/03/17 17:31 O2 Delivery Mode Room Air Allergies/Adverse Reactions: azithromycin Allergy (Verified 11/03/17 17:35) cephalexin [From Keflex] Allergy (Verified 11/03/17 17:35) paroxetine HCl [From Paxil] Allergy (Verified 11/03/17 17:35) Penicillins Allergy (Verified 11/03/17 17:35) malaria medication Allergy (Uncoded 11/03/17 17:35) Home Medications: Medication Instructions Recorded Aspirin EC [Aspirin EC 81 mg (*)] 81 mg PO DAILY 10/04/17 Herbals/Supplements -Info Only 1 ea PO DAILY 10/04/17 Magnesium Oxide [Magnesium Oxide 400 mg PO HS 10/04/17 400 mg (*)] Olmesartan/Hydrochlorothiazide 1 each PO DAILY 10/04/17 [Benicar Hct 40-12.5 mg Tablet] [place]-3 Fatty Acids [Fish Oil 1000 1,000 mg PO DAILY 10/04/17 mg (*)] Pravastatin Sodium 20 mg PO HS 10/04/17 Dexamethasone [Decadron 4 MG (*)] 4 mg PO BID #60 tab 10/08/17 LORazepam [Ativan (*)] 0.5 mg PO BID PRN #30 tab 10/08/17 valACYclovir 10/24/17 Medical Decision Making ED Course/Re-evaluation: In the emergency department I discussed the case with Dr. Saleem who was on-call for Dr. Ndiaye. Based on the patient's findings the patient will be observed. She will continue her doxycycline. She will be seen tomorrow to recheck the site. She agrees with this plan. She is given warnings prior to leaving. Sinus rhythm at 88. Normal axis. Normal intervals. Poor R-wave progression. Differential Diagnosis: My differential includes but is not limited to irritation the PICC line site, cellulitis, abscess, thrombosis, bacteremia, sepsis Departure - Departure Disposition: Home, Routine, Self-Care Clinical Impression: PICC line infection Qualifiers: Encounter type: initial encounter Qualified Code(s): T80.219A - Unspecified infection due to central venous catheter, initial encounter Condition: Good Instructions: Cellulitis (ED) Additional Instructions: Continue your antibiotics. You should be seen by the Cancer Care Center tomorrow. I spoke with Dr. Saleem on the phone regarding this plan. Referrals: Suyapa Ndiaye MD [Medical Doctor] - 1 day without fail
[2017-11-03 19:12] VITALS: BP 120/55
== END 2017-11-03 19:30 | disposition home or self-care (01) ==
DX: T80.219A Unspecified infection due to central venous catheter, initial encounter (principal); Z79.82 Long term (current) use of aspirin; Z85.79 Personal history of other malignant neoplasms of lymphoid, hematopoietic and related tissues; Y71.2 Prosthetic and other implants, materials and accessory cardiovascular devices associated with adverse incidents

== ENCOUNTER 2017-11-23 | Emergency (ER) | payer OTHER | END 2017-11-23 18:25 | disposition home or self-care (01) | DX: R50.9 Fever, unspecified (principal); N39.0 Urinary tract infection, site not specified; C85.90 Non-Hodgkin lymphoma, unspecified, unspecified site; Z92.21 Personal history of antineoplastic chemotherapy; Z95.2 Presence of prosthetic heart valve; Z88.0 Allergy status to penicillin ==

== ENCOUNTER 2017-11-29 19:07 | Inpatient (IN) | payer OTHER ==
[2017-11-29] MEDS ORDERED: NS 500 ML IV ONE (19:26)
[2017-11-29 19:50] LABS: PLATELET COUNT 236 10^3/uL (150-400)
[2017-11-29 19:58] LABS: INR 1.11 (0.83-1.16); PROTIME(PATIENT) 14.5 SEC (12.0-15.0)
[2017-11-29] MEDS ORDERED: ACETAMINOPHEN 500 MG TAB PO ONE (19:58)
--- NOTE | 2017-11-29 20:32 | EDPHY ---
H & P Time Seen by Provider: 11/29/17 19:25 HPI/ROS: HPI History of lymphoma. Fever. On chemotherapy. 82-year-old female by private vehicle with her . This patient has a history of mantle cell lymphoma. She is currently on a chemotherapeutic regiment. Her last dose of chemotherapy was November 09. She receives this every 28 days. She has had an on and off fever for about a month. She was just seen and evaluated at the [facility] in [facility]. Her fever reportedly resolved this morning and she was discharged in came back to [place]. She reports that her fever came back this afternoon. She saw her primary care physician Dr. Smith. He called me and felt that she needed to be admitted and thoroughly worked up. She was sent to the emergency department from his office. She also has a right upper extremity PICC line. Apparently the placement of this PICC line is too deep and the PICC line has not been used in some time. There is also concerned that this PICC line may be a nidus for infection. Other than fever and feeling fatigued. She denies any other associated signs or symptoms. ROS: Constitutional: As above, no chills. No weakness. Eyes: No discharge. No changes in vision. ENT: No sore throat. No nasal congestion or rhinorrhea. Respiratory: No cough. No shortness of breath. Cardiac: No chest pain, no palpitations. Gastrointestinal: No abdominal pain, no vomiting, no diarrhea. Genitourinary: No hematuria. No dysuria or increased frequency with urination. Musculoskeletal: No back pain. No neck pain. No myalgias or arthralgias. Skin: No rashes. Neurological: No headache. No focal weakness or altered sensation. Past medical history: Hypertension, aortic stenosis with aortic valve replacement, anxiety, appendectomy, mantle cell lymphoma. Her oncologist is Dr. Ndiaye. As above. Social history: Here with her . Nonsmoker. No alcohol. Physical Exam: General Appearance: Alert, no distress. This patient is responding to questions appropriately and in full sentences. This patient appears well- hydrated and well-nourished. Eyes: Pupils equal and round no pallor or injection. No lid edema, erythema or injection. ENT, Mouth: Mucous membranes are moist. The pharyngeal tissues are unremarkable. No edema or swelling. No asymmetry suggestive of abscess. No erythema or exudates. Respiratory: There are no retractions, lungs are clear to auscultation with good air movement bilaterally. Cardiovascular: Regular rate and rhythm. No murmur. Gastrointestinal: Abdomen is soft and nontender, no masses, bowel sounds normal. No focal tenderness at McBurney's point. No Gilmore sign. Neurological: Motor sensory function is grossly intact. Cranial nerves are normal. Gait is normal. Skin: Warm and dry, no rashes. Musculoskeletal: Neck is supple and nontender. No pain on flexion of her neck. No cervical, submandibular, submental lymphadenopathy. Extremities are symmetrical. All joints range without pain or impingement. Right upper extremity PICC line site is clean dry and intact. No erythema or edema noted at insertion site. Psychiatric: No agitation. No depression. Database: EKG: Imaging: Chest x-ray PA and lateral; the cardiac mediastinal silhouette is unremarkable. No evidence of infiltrate or pneumothorax. No acute cardiopulmonary disease process noted. Her PICC line appears to be placed 2 deep with the tip being in the right atrium. Interpreted by me. Procedures: Emergency department course: Triage vital signs reviewed. She is moderately hypertensive. She is febrile at 38.1 orally. Borderline tachycardia with heart rate of 99. IV was placed. She was placed on a monitor. She was started on IV normal saline with 500 cc to 1 L to be given over the next hour. 9:05 p.m., patient re-evaluated. Resting comfortably at this time. I discussed the results of her emergency department workup. Blood culture results are pending. Urinalysis is pending at this time as well. Her vital signs were reviewed. She has remained stable throughout her emergency department course. I discussed admission with her to the hospitalist service for further evaluation and management. Of consideration is pulling and culturing her PICC line. This will be reviewed with the hospitalist service. Urinalysis result will also be followed up on antibiotics will be started as indicated. Hospitalist paged. 9:15 p.m., discussed case with hospitalist in detail as noted above. Patient accepted for admission to the hospitalist service. The patient's remaining emergency department course under my care has been uneventful. The patient was admitted to the hospitalist service in stable condition. Differential Diagnosis: The differential diagnosis on this patient includes but is not limited to history of lymphoma, on chemotherapy, fever without a source. This represents a partial list of diagnoses considered. These considerations are based on history, physical exam, past history, reassessment and diagnostic testing. Smoking Status: Never smoked Constitutional: Initial Vital Signs Temperature (C) 38.1 C 11/29/17 19:11 Heart Rate 99 11/29/17 19:11 Respiratory Rate 16 11/29/17 19:11 Blood Pressure 146/77 H 11/29/17 19:11 O2 Sat (%) 93 11/29/17 19:11 O2 Delivery Mode Room Air Allergies/Adverse Reactions: azithromycin Allergy (Verified 11/23/17 15:59) cephalexin [From Keflex] Allergy (Verified 11/23/17 15:59) paroxetine HCl [From Paxil] Allergy (Verified 11/23/17 15:59) Penicillins Allergy (Verified 11/23/17 15:59) malaria medication Allergy (Uncoded 11/23/17 15:59) Home Medications: Medication Instructions Recorded Aspirin EC [Aspirin EC 81 mg (*)] 81 mg PO DAILY 10/04/17 Herbals/Supplements -Info Only 1 ea PO DAILY 10/04/17 Magnesium Oxide [Magnesium Oxide 400 mg PO HS 10/04/17 400 mg (*)] Olmesartan/Hydrochlorothiazide 1 each PO DAILY 10/04/17 [Benicar Hct 40-12.5 mg Tablet] Yoder-3 Fatty Acids [Fish Oil 1000 1,000 mg PO DAILY 10/04/17 mg (*)] Pravastatin Sodium 20 mg PO HS 10/04/17 Dexamethasone [Decadron 4 MG (*)] 4 mg PO BID #60 tab 10/08/17 LORazepam [Ativan (*)] 0.5 mg PO BID PRN #30 tab 10/08/17 valACYclovir 10/24/17 Nitrofurantoin Monohyd/M-Cryst 100 mg PO BID #10 capsule 11/23/17 [Macrobid 100 mg Capsule] Medical Decision Making - Data Points Laboratory Results: Laboratory Results 11/29/17 19:30 11/29/17 19:30 11/29/17 11/29/17 11/29/17 19:30 19:30 19:30 WBC RBC Hgb Hct MCV MCH MCHC RDW Plt Count MPV Neut % (Auto) Lymph % (Auto) [place] % (Auto) Eos % (Auto) Baso % (Auto) Nucleat RBC Rel Count Absolute Neuts (auto) Absolute Lymphs (auto) Absolute Monos (auto) Absolute Eos (auto) Absolute Basos (auto) Absolute Nucleated RBC Immature Gran % Immature Gran # RBC/WBC/PLT Morphology Platelet Estimate PT 14.5 SEC SEC (12.0-15.0) INR 1.11 (0.83-1.16) APTT 31.9 SEC SEC (23.0-38.0) VBG Lactic Acid 0.8 mmol/L mmol/L (0.7-2.1) Sodium 131 mEq/L L mEq/L (135-145) Potassium 3.3 mEq/L mEq/L (3.3-5.0) Chloride 99 mEq/L mEq/L (97-110) Carbon Dioxide 22 mEq/l mEq/l (22-31) Anion Gap 10 mEq/L mEq/L (8-16) BUN 17 mg/dL mg/dL (7-23) Creatinine 0.7 mg/dL mg/dL (0.6-1.0) Estimated GFR > 60 Glucose 103 mg/dL H mg/dL (70-100) Calcium 9.0 mg/dL mg/dL (8.5-10.4) Total Bilirubin 0.4 mg/dL mg/dL (0.1-1.4) Conjugated Bilirubin 0.1 mg/dL mg/dL (0.0-0.5) Unconjugated Bilirubin 0.3 mg/dL mg/dL (0.0-1.1) AST 22 IU/L IU/L (14-46) ALT 31 IU/L IU/L (9-52) Alkaline Phosphatase 79 IU/L IU/L (38-126) Total Protein 5.9 g/dL L g/dL (6.3-8.2) Albumin 3.3 g/dL L g/dL (3.5-5.0) 11/29/17 19:30 WBC 4.07 10^3/uL 10^3/uL (3.80-9.50) RBC 3.43 10^6/uL L 10^6/uL (4.18-5.33) Hgb 10.3 g/dL L g/dL (12.6-16.3) Hct 29.2 % L % (38.0-47.0) MCV 85.1 fL fL (81.5-99.8) MCH 30.0 pg pg (27.9-34.1) MCHC 35.3 g/dL g/dL (32.4-36.7) RDW 15.2 % % (11.5-15.2) Plt Count 236 10^3/uL 10^3/uL (150-400) MPV 9.5 fL fL (8.7-11.7) Neut % (Auto) 81.7 % H % (39.3-74.2) Lymph % (Auto) 5.7 % L % (15.0-45.0) [place] % (Auto) 10.6 % % (4.5-13.0) Eos % (Auto) 0.0 % L % (0.6-7.6) Baso % (Auto) 1.5 % % (0.3-1.7) Nucleat RBC Rel Count 0.0 % % (0.0-0.2) Absolute Neuts (auto) 3.33 10^3/uL 10^3/uL (1.70-6.50) Absolute Lymphs (auto) 0.23 10^3/uL L 10^3/uL (1.00-3.00) Absolute Monos (auto) 0.43 10^3/uL 10^3/uL (0.30-0.80) Absolute Eos (auto) 0.00 10^3/uL L 10^3/uL (0.03-0.40) Absolute Basos (auto) 0.06 10^3/uL 10^3/uL (0.02-0.10) Absolute Nucleated RBC 0.00 10^3/uL 10^3/uL (0-0.01) Immature Gran % 0.5 % % (0.0-1.1) Immature Gran # 0.02 10^3/uL 10^3/uL (0.00-0.10) RBC/WBC/PLT Morphology TNP Platelet Estimate TNP PT INR APTT VBG Lactic Acid Sodium Potassium Chloride Carbon Dioxide Anion Gap BUN Creatinine Estimated GFR Glucose Calcium Total Bilirubin Conjugated Bilirubin Unconjugated Bilirubin AST ALT Alkaline Phosphatase Total Protein Albumin Medications Given: Discontinued Medications Acetaminophen (Tylenol) 1,000 mg PO EDNOW ONE Stop: 11/29/17 19:59 Last Admin: 11/29/17 20:09 Dose: 1,000 mg Sodium Chloride (Ns) 500 mls @ 0 mls/hr IV ONCE ONE; Wide Open PRN Reason: Protocol Stop: 11/29/17 19:27 Last Admin: 11/29/17 20:08 Dose: 500 mls Departure - Departure Disposition: [facility] Inpatient Acute Clinical Impression: Fever, Maintenance chemotherapy, Lymphoma Referrals: NONE *PRIMARY CARE P,. [Primary Care Provider] - As per Instructions
[2017-11-29] MEDS ORDERED: ONDANSETRON DISINTEGRATING 4 MG TAB PO PRN (22:01)
[2017-11-29] MEDS ORDERED: ONDANSETRON 4 MG/2 ML VIAL IVP PRN (22:01)
--- NOTE | 2017-11-29 23:31 | PDGENHP ---
History and Physical - Chief Complaint Fevers - History of Present Illness PCP Dr. Smith Primary oncologist - Dr. Ndiaye. Source-patient provides history appears reliable. EMR was reviewed and case discussed with accepting hospitalist. Patient on come with some imaging studies and lab work from [facility]. Request for additional records has been entered. HPI - this is a very pleasant 82-year-old female with past medical history significant for mantle cell lymphoma on chemotherapy, HLD, HTN, history of aortic stenosis status post aortic valve replacement and anxiety who presents emergency department today with complaints of fever. Patient reports that she has been experiencing intermittent fevers for the last several weeks. She had a PICC placed in early October. She subsequently developed a little bit of local cellulitis with such was treated with oral antibiotics and cleared up. Patient was admitted on for a 2nd opinion evaluation at [facility] in [place]. She reports she was admitted on 11/26/2017 she did have some fevers and was being monitored for this. She states that she had blood cultures and she seems a head were negative. She was not started on any antibiotics at that time. She states that they did not use her PICC line for medications but she has been flushing with heparin and saline daily. She also reports that she was advised her PICC line was advance to far into the right atrium but because the PICC was not inserted at their facility patient reports that they did not manipulate her PICC or use it for any studies. Patient states that she has been having increased malaise and has been feeling more tired today because she just flew in from used in after hospitalization for 3 days at [facility] and subsequently stopped at her PCPs office with complaints of recurrence of her fever and she was subsequently referred to the emergency department. She arrives by private vehicle with her . She denies any nausea, vomiting or diarrhea. She denies any cough shortness of breath rhinorrhea or sore throat. Patient does report she has been having some increased nocturia which is unusual for her. She denies any dysuria hematuria. She also denies any new rashes or sores including at her right PICC site. History Information - Allergies/Home Medication List Allergies/Adverse Reactions: cephalexin [From Keflex] Allergy (Intermediate, Verified 11/30/17 02:53) Swelling/neck,face,throat malaria medication Allergy (Uncoded 11/29/17 21:58) Other-Enter Comments Home Medications: Aspirin [Aspirin 81mg (*)] 81 mg PO DAILY 11/29/17 [Last Taken 11/29/17] Cholecalciferol Vit D3 [Vitamin D3 (*)] 2,000 units PO DAILY 11/29/17 [Last Taken 11/29/17] Herbals/Supplements -Info Only 1 ea PO DAILY 11/29/17 [Last Taken 11/29/17] LORazepam [Ativan (*)] 0.5 mg PO BID PRN 11/29/17 [Last Taken 11/28/17] Magnesium Oxide [Magnesium] 500 mg PO DAILY 11/29/17 [Last Taken 11/29/17] Olmesartan/Hydrochlorothiazide [Benicar Hct 40-12.5 mg Tablet] 1 each PO DAILY 11/29/17 [Last Taken 11/29/17] [place]-3 Fatty Acids [Fish Oil 1000 mg (*)] 1,000 mg PO DAILY 11/29/17 [Last Taken 11/28/17] Pravastatin Sodium 20 mg PO HS 11/29/17 [Last Taken 11/28/17] valACYclovir [Valtrex (*)] 500 mg PO DAILY 11/29/17 [Last Taken 11/29/17] I have personally reviewed and updated: family history, medical history, social history, surgical history - Past Medical History Additional medical history: Mantle cell lymphoma undergoing chemotherapy last received 11/09/2017. Hyperlipidemia. History UTI. HTN. Aortic stenosis status post bovine valve replacement. Anxiety - Surgical History Additional surgical history: Appendectomy. Aortic valve replacement. Right PICC placement. Colonoscopy - Family History Additional family history: Negative for cancer. Both parents with history of HTN. Patient with 3 adult children who are all healthy. - Social History Smoking Status: Never smoked Alcohol Use: None Drug Use: None Additional social history: Patient is and lives with her in [place]. She has 2 of her 3 children live locally. Cor status-full. Review of Systems Review of Systems: ROS: 10pt was reviewed & negative except for what was stated in HPI & below Constitutional: Reports: fever, malaise, other (Night sweats). Denies: chills, recent illness, weakness EENMT: Reports: no symptoms. Denies: nose congestion, sore throat Cardiac: Reports: no symptoms. Denies: edema, palpitations, syncope Respiratory: Reports: no symptoms. Denies: cough, shortness of breath Gastrointestinal: Reports: no symptoms Genitourinary: Reports: no symptoms Muscolosketal: Reports: no symptoms Skin: Reports: no symptoms Neurological: Reports: no symptoms Hematologic/Lymphatic: Reports: no symptoms Physical Exam Physical Exam: Selected Entries 11/29/17 19:11 Blood Pressure Automatic Method Heart Rate 99 Respiratory 16 Rate O2 Sat (%) 93 Temperature (C) 38.1 C Blood Pressure 146/77 H Mean Arterial 100 Pressure (MAP) O2 Delivery Room Air Mode Temperature Oral Source Temp Pulse Resp BP Pulse Ox 36.7 C 84 16 127/60 H 90 L 11/29/17 22:27 11/29/17 22:27 11/29/17 22:27 11/29/17 22:27 11/29/17 22:27 Constitutional: no apparent distress, appears nourished, not in pain, other ( NAD. Patient appears much younger than stated age. She does appear slightly fatigued but she is pleasant and cooperative. Her is at bedside.), No uncomfortable Eyes: PERRL, anicteric sclera, EOMI, No scleral injection Ears, Nose, Mouth, Throat: moist mucous membranes, other (No nasal discharge), No poor dentition Cardiovascular: regular rate and rhythym, systolic murmur (Crescendo decrescendo murmur present diffusely.), pulses symmetric bilaterally, edema Peripheral Pulses: 1+: dorsalis-pedis (R), dorsalis-pedis (L) Respiratory: no respiratory distress, no rales or rhonchi, clear to auscultation , No expiratory wheeze Gastrointestinal: normoactive bowel sounds, soft, non-tender abdomen, no palpable masses, No distension Genitourinary: no bladder tenderness, No tolliver in urethra Skin: warm, no rashes or abrasions, other (Pallor), No erythema Musculoskeletal: generalized weakness (Patient is able to sit up independently.) , No pain with ROM Neurologic: AAOx3, sensation intact bilaterally, other (Grossly nonfocal exam.) , No facial droop Psychiatric: interacting appropriately, not anxious, not encephalopathic, thought process linear Lab Data & Imaging Review 11/29/17 19:30 11/29/17 19:30 WBC 4.07 10^3/uL (3.80-9.50) 11/29/17 19: RBC 3.43 10^6/uL (4.18-5.33) L 11/29/17 19: Hgb 10.3 g/dL (12.6-16.3) L 11/29/17 19:30 Hct 29.2 % (38.0-47.0) L 11/29/17: MCV 85.1 fL (81.5-99.8) 11/29/17: MCH 30.0 pg (27.9-34.1) 11/29/17: MCHC 35.3 g/dL (32.4-36.7) 11/29/17: RDW 15.2 % (11.5-15.2) 11/29/17: Plt Count 236 10^3/uL (150-400) 11/29/17: MPV 9.5 fL (8.7-11.7) 11/29/17: Neut % (Auto) 81.7 % (39.3-74.2) H 11/29/17: Lymph % (Auto) 5.7 % (15.0-45.0) L 11/29/17: [place] % (Auto) 10.6 % (4.5-13.0) 11/29/17: Eos % (Auto) 0.0 % (0.6-7.6) L 11/29/17: Baso % (Auto) 1.5 % (0.3-1.7) 11/29/17: Nucleat RBC Rel Count 0.0 % (0.0-0.2) 11/29/17: Absolute Neuts (auto) 3.33 10^3/uL (1.70-6.50) 11/29/17: Absolute Lymphs (auto) 0.23 10^3/uL (1.00-3.00) L 11/29/17:30 Absolute Monos (auto) 0.43 10^3/uL (0.30-0.80) 11/29/17 19: Absolute Eos (auto) 0.00 10^3/uL (0.03-0.40) L 11/29/17 19:30 Absolute Basos (auto) 0.06 10^3/uL (0.02-0.10) 11/29/17 19:30 Absolute Nucleated RBC 0.00 10^3/uL (0-0.01) 11/29/17 19:30 Immature Gran % 0.5 % (0.0-1.1) 11/29/17 19:30 Immature Gran # 0.02 10^3/uL (0.00-0.10) 11/29/17 19:30 RBC/WBC/PLT Morphology TNP 11/29/17 19:30 Platelet Estimate TNP 11/29/17 19:30 PT 14.5 SEC (12.0-15.0) 11/29/17 19:30 INR 1.11 (0.83-1.16) 11/29/17 19:30 APTT 31.9 SEC (23.0-38.0) 11/29/17 19:30 VBG Lactic Acid 0.8 mmol/L (0.7-2.1) 11/29/17 19:30 Sodium 131 mEq/L (135-145) L 11/29/17 19:30 Potassium 3.3 mEq/L (3.3-5.0) 11/29/17 19:30 Chloride 99 mEq/L (97-110) 11/29/17 19:30 Carbon Dioxide 22 mEq/l (22-31) 11/29/17 19:30 Anion Gap 10 mEq/L (8-16) 11/29/17 19:30 BUN 17 mg/dL (7-23) 11/29/17 19:30 Creatinine 0.7 mg/dL (0.6-1.0) 11/29/17 19:30 Estimated GFR > 60 11/29/17 19:30 Glucose 103 mg/dL (70-100) H 11/29/17 19:30 Calcium 9.0 mg/dL (8.5-10.4) 11/29/17 19:30 Total Bilirubin 0.4 mg/dL (0.1-1.4) 11/29/17 19:30 Conjugated Bilirubin 0.1 mg/dL (0.0-0.5) 11/29/17 19:30 Unconjugated Bilirubin 0.3 mg/dL (0.0-1.1) 11/29/17 19:30 AST 22 IU/L (14-46) 11/29/17 19:30 ALT 31 IU/L (9-52) 11/29/17 19:30 Alkaline Phosphatase 79 IU/L (38-126) 11/29/17 19:30 Total Protein 5.9 g/dL (6.3-8.2) L 11/29/17 19:30 Albumin 3.3 g/dL (3.5-5.0) L 11/29/17 19:30 Urine Color YELLOW 11/29/17 21:05 Urine Appearance CLEAR 11/29/17 21:05 Urine pH 6.0 (5.0-7.5) 11/29/17 21:[address] 1.016 (1.002-1.030) 11/29/17 21:05 Urine Protein NEGATIVE (NEGATIVE) 11/29/17 21:05 Urine Ketones TRACE (NEGATIVE) H 11/29/17 21:05 Urine Blood 1+ (NEGATIVE) H 11/29/17 21:05 Urine Nitrate NEGATIVE (NEGATIVE) 11/29/17 21:05 Urine Bilirubin NEGATIVE (NEGATIVE) 11/29/17 21:05 Urine Urobilinogen NEGATIVE EU (0.2-1.0) 11/29/17 21:05 Ur Leukocyte Esterase NEGATIVE (NEGATIVE) 11/29/17 21:05 Urine RBC 1-3 /hpf (0-3) 11/29/17 21:05 Urine WBC 1-3 /hpf (0-3) 11/29/17 21:05 Ur Epithelial Cells TRACE /lpf (NONE-1+) 11/29/17 21:05 Hyaline Casts 1-5 /lpf (0-1) 11/29/17 21:05 Urine Mucus TRACE /lpf (NONE-1+) 11/29/17 21:05 Urine Glucose NEGATIVE (NEGATIVE) 11/29/17 21:05 Imaging Review: Portable Chest at 2032 hours History: cough. Comparison: 2 view chest November 23, 2017. Findings: Right PICC tip is at the cavoatrial junction. Diffuse peribronchial thickening is slightly increased without focal consolidation. Linear scarring/atelectasis and a staple line in the left lung base are again noted. There is no pneumothorax. Heart size is normal. Intact sternotomy wires and artificial aortic valve are noted. Impression: Peribronchial thickening that could be related to bronchitis or mild fluid overload. Dictated By: Howard Hansen MD Chest X-Ray results: other (Peribronchiolar thickening. No infiltrates. PICC line terminates in the caval atrial junction.) Visualized and Interpreted imaging results: Yes Assessment & Plan Assessment: Pleasant 82-year-old female with history of mantle cell lymphoma undergoing chemotherapy, HTN, HLD, anxiety history aortic valve replacement(bovine) who presents to the ED today with complaints of recurrent fever. #Fever (Acute) - ddx mantle cell lymphoma vs. bronchitis vs infected PICC vs viral syndrome. Patient fevers currently improved. She does not have a leukocytosis or meeting SIRS criteria. She did have blood cultures drawn x2 in the ED which were both peripheral non from the PICC and so I have added a 3rd culture with sampling from the PICC line. Will try to obtain medical records from [facility] from patient's recent hospital stay. Patient reports she had blood cultures drawn but they did not use her PICC line as it had was not placed at their facility. Tylenol will be available p.r.n.. Will hold off on initiating antibiotic therapy. Will hold off on pulling the right PICC at this time pending preliminary cultures. #Mantle cell Lymphoma (Acute) - patient reports last chemotherapy had any 2017. bendamustine, rituxan, MTX. Oncology consult in the morning as per day team. Orbital MRI and PET-CT show improvement in lymphoma this involvement Available record review from [facility] that patient had with her includes PET- CT showing prove mint within bilateral orbital apices as well as improvement in extensive lymphoma DIS involvement of the extracranial soft tissues including bilateral temporalis muscles. No evidence of leptomeningeal or brain involvement of lymphoma. #PICC placement - had right PICC tip is located in the deep right atrium. Consider repositioning if decision is made to leave PICC in place. Will not remove it overnight at this point should patient lose IV access. She is currently afebrile has no leukocytosis and no evidence of sepsis at this point. Blood culture x1 from the PICC were drawn this evening. Two peripheral blood cultures are pending. Again will try to obtain records from [facility] including any pending blood culture results but these were likely negative. #Maintenance chemotherapy (Acute) - no evidence of neutropenia. Patient did have slight leukopenia down to 2.9 11/28/2017 per [facility] records. Currently improved above 4. . #Nocturia - patient reports she has some at baseline but has significantly increased. UA is unremarkable for infectious process. # anemia - patient without any evidence of active bleeding. H&H appears stable and likely chronic in setting of lymphoma and chemotherapy. # hypoalbuminemia - likely related to patient's chronic conditions as well as component of acute issues with fever. She is tolerating a very diet at this point. # hyponatremia - patient is on diuretics at baseline. She declined any IV fluid hydration at this time. Will repeat a BMP in the morning. Renal function is adequate. Chronic medical issues #Benign essential HTN - blood pressures at this time are acceptable. Resume patient's home medications when her med rec is available. #HLD - continue patient's fish oil and pravastatin 1 med rec available. #History of aortic valve replacement, bovine donor #Anxiety - Ativan p.r.n. FEN - IV fluid supplementation was offered to the patient overnight however she reports that she feels like she could drink well enough. She does have some slight hyponatremia but will plan to monitor with repeat BMP in the morning. Likely some component of her diuretic therapy. Other electrolytes appear adequate. Diet as tolerated. PPX- SCDs and Lovenox. Monitor H&H closely. Cor status-full Disposition-patient admitted inpatient status on the [facility] Oncology floor. Will need to await culture results and additional testing and consultation recommendations. Anticipate greater than 2 midnight stay.
[2017-11-30] MEDS ORDERED: LORazepam 0.5 MG TAB PO PRN ×2 (08:53→12:30)
[2017-11-30] MEDS ORDERED: valACYclovir 500 MG TAB PO SCH (09:00)
[2017-11-30] MEDS ORDERED: Herbals/Supplements -Info Only PO SCH ×2 (09:00→13:00)
--- NOTE | 2017-11-30 09:33 | PDMN ---
Medical Necessity Medical necessity: Pt meets IP criteria per & [facility]; est los >2 mn for fever; r/o bronchitis vs infected PICC vs viral syndrome; awaiting cx results; requiring further monitoring/testing & Oncology consult; comorbid lymphoma on chemo, HTN; per H&P & order 11/29/17
[2017-11-30] MEDS: ASPIRIN 81 MG CHEWABLE TAB PO SCH (09:55)
[2017-11-30] MEDS: CHOLECALCIFEROL VIT D3 1,000 UNITS TAB PO SCH (09:55)
[2017-11-30] MEDS: OMEGA-3 FATTY ACIDS 1,000 MG CAP PO SCH (09:55)
[2017-11-30] MEDS: OLMESARTAN PO SCH (11:28)
[2017-11-30] MEDS: HYDROCHLOROTHIAZIDE PO SCH (11:28)
[2017-11-30] MEDS ORDERED: MAGNESIUM OXIDE 400 MG TAB PO PRN (12:37)
--- NOTE | 2017-11-30 12:42 | HOSPPROG ---
Hospitalist Progress Note Assessment/Plan: #SIRs: fever, tachycardia. Hemodynamically stable. -denies infectious symptoms. Recently treated cellulitis around PICC site. Awaiting culture results from [facility] -culture from blood/PICC drawn here. Add Vanc now with persistent fever. Echo to eval for endocarditis -pull PICC line. -Dr. 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 Dr. Ndiaye to discuss further treatment #h/o aortic stenosis: s/p valve #Hyponatremia: resolved. #HTN: home meds #Normocytic anemia: no active bleeding #Hypoalbuminemia: from cancer, acute illness #DVT ppx: LMWH #Disp: inpt admission for IV abx, echo Subjective: drenching sweats last night Objective: Vital Signs Temp Pulse Resp BP Pulse Ox 37.6 C 92 14 143/78 H 95 11/30/17 07:44 11/30/17 07:44 11/30/17 07:44 11/30/17 07:44 11/30/17 07:44 11/29/17 11/30/17 12/01/17 05:59 05:59 05:59 Intake Total 600 Output Total 1100 200 Balance -500 -200 PT 14.5 SEC (12.0-15.0) 11/29/17 19:30 INR 1.11 (0.83-1.16) 11/29/17 19:30 - Time Spent With Patient Time Spent with Patient: greater than 35 minutes Time Spent with Patient: Greater than 35 minutes spent on this patients care, greater than 50% of time spent counseling, educating, and coordinating care regarding the above mentioned plan. - Physical Exam Constitutional: no apparent distress Eyes: PERRL Ears, Nose, Mouth, Throat: moist mucous membranes Cardiovascular: regular rate and rhythym, no murmur, rub, or gallop, systolic murmur Respiratory: no respiratory distress, no rales or rhonchi, No rhonchi Gastrointestinal: normoactive bowel sounds, soft, non-tender abdomen Musculoskeletal: other (right picc. no pain, redness) Neurologic: AAOx3, CN II-XII Intact Psychiatric: interacting appropriately ICD10 Worksheet Patient Problems: Problems Problem Status Onset Fever Acute Lymphoma Acute Maintenance chemotherapy Acute Chest pain Acute
[2017-11-30] MEDS: ACETAMINOPHEN 325 MG TAB PO PRN ×2 (13:39→23:06)
[2017-11-30] MEDS: VANCOMYCIN HCL/NORMAL SALINE 250 ML IV SCH (14:55)
[2017-11-30] MEDS: CALCIUM CARBONATE 500 MG CHEWABLE TAB PO PRN ×2 (14:59→20:42)
[2017-11-30] MEDS: VALACYCLOVIR HCL 1000 MG PO SCH (15:00)
--- NOTE | 2017-11-30 15:06 | ASMTCMCOM ---
CM Note CM Note Notes: Pt undergoing treatment for mantle cell lymphoma admitted with fever. No definite source yet. At last admission, pt DC'd wit [facility] for PICC care and teaching. Current DC needs unclear. Date Signed: 11/30/2017 03:05 PM Electronically Signed By:Maddi Jacobsen LCSW
[2017-11-30] MEDS ORDERED: diphenhydrAMINE 25 MG CAP PO PRN (16:52)
--- NOTE | 2017-11-30 18:43 | GCON ---
[f rep st] CONSULTATION ONCOLOGY CONSULTATION REASON FOR CONSULTATION: Ongoing fever in the setting of treatment for mantle cell lymphoma. HISTORY OF PRESENT ILLNESS: The patient is a very pleasant 82-year-old female recently diagnosed with mantle cell lymphoma with an unusual pattern of diffuse infiltration into the retroorbital region and temporalis muscles. She presented in late September with symptoms of progressive visual loss and swelling near the temporal region. CT scan of the chest, abdomen and pelvis showed extensive retroperitoneal mesenteric and inguinal adenopathy. A biopsy of the left inguinal node was consistent with mantle cell lymphoma with a Ki-67 of 10% . An MRI showed encasement of the bilateral optic nerves with lymphomatous involvement of the bilateral extracranial soft tissues including the bilateral temporalis muscle. The patient was treated bendamustine and rituximab starting on October 14. She received her second cycle on November 11. She has recently returned from [facility] where repeat MRI imaging confirmed response to the chemotherapy with marked improvement in the intraabdominal retroperitoneal adenopathy (I do not have those reports yet) and significant improvement in the orbital and soft tissue involvement involving the temporalis muscle. The recommendation was made to continue treatment with ibrutinib and rituximab, which she has not yet started. A PICC line was placed on October 07. She developed an infection at the PICC exit site in late october and was started on levoquin. The erythema worsened and she developed a small amount of pus around the PICC. She was started on doxycycline which eventually helped. More recently, she has had a fever, on and off, for the last 8 days. She had a fever while down at [facility] a few days ago and cultures were obtained, but no antibiotics were started. She presented to the emergency room today with ongoing fevers and is being admitted for further evaluation for that. Her history is notable for having a prosthetic aortic valve. She denies abdominal pain, urinary symptoms, cough, SOB. She is not aware of an active infection at the PICC site. PAST MEDICAL HISTORY: 1. Status post aortic valve replacement for aortic stenosis. 2. Coronary artery disease. 3. Hyperlipidemia. 4. Hypertension. PAST SURGICAL HISTORY: Aortic valve replacement in June of 2013, appendectomy , nasal fracture repair, ovarian cystectomy. FAMILY HISTORY: Noncontributory. SOCIAL HISTORY: She is . She has a son and a daughter. She drinks alcohol occasionally. She is a nonsmoker. Her son-in-law is an elementary educator locally. REVIEW OF SYSTEMS: 10-point review of systems is negative other than noted in HPI. Of note, she describes a drenching night sweat last night. PHYSICAL EXAM: GENERAL: She is well-appearing. VITAL SIGNS: Blood pressure 119/63, T-max of 39.1, O2 sat of 91%, heart rate 110. Current heart rate is 90 and she is afebrile. HEENT: Pupils equal. Sclerae anicteric. Oropharynx is clear. LUNGS: Clear to auscultation. HEART: Regular rate with systolic murmur and valve changes. ABDOMEN: Soft, nontender. No organomegaly. EXTREMITIES: No edema. PICC: no purulence, no significant erythema. LABORATORY DATA: White count 4.0, hematocrit 29, platelets 236. Chemistry panel is unremarkable. Chest x-ray is unremarkable other than mild peribronchiolar thickening. IMPRESSION: This is an 82-year-old female with an unusual presentation of mantle cell lymphoma with retroorbital involvement and diffuse lymphomatous involvement of the bilateral temporalis muscles with extensive intraabdominal disease. She has had a significant response to the initial 2 cycles of bendamustine and rituximab, but more recently has had ongoing fevers with an unclear source. There were initial issues with the PICC exit site, but this was thought to have resolved. Blood cultures were taken at [facility] a few days ago and she was cultured again here and started on vancomycin. She has a prosthetic aortic valve, raising some concern for endocarditis. We will have Infectious Disease evaluate the patient in the morning. At the moment, she is clinically stable. Treatment will be held until fever has resolved. We will continue to follow along with you. /[id number]/MODL MTDD
[2017-11-30] MEDS: MAGNESIUM CITRATE PO SCH (20:34)
[2017-11-30] MEDS: PRAVASTATIN SODIUM 20 MG TAB PO SCH (20:36)
[2017-11-30] MEDS: MELATONIN 3 MG TAB PO SCH (20:37)
[2017-11-30 20:42] LABS: PLATELET COUNT 252 10^3/uL (150-400)
[2017-12-01] MEDS: VANCOMYCIN HCL/NORMAL SALINE 250 ML IV SCH ×2 (00:46→12:15)
[2017-12-01 05:11] LABS: PLATELET COUNT 213 10^3/uL (150-400)
[2017-12-01] MEDS ORDERED: POTASSIUM CL 20 MEQ TAB PO ONE (08:30)
[2017-12-01] MEDS: ASPIRIN 81 MG CHEWABLE TAB PO SCH (09:15)
[2017-12-01] MEDS: CHOLECALCIFEROL VIT D3 1,000 UNITS TAB PO SCH (09:16)
[2017-12-01] MEDS: ENOXAPARIN 40 MG/0.4 ML SYR SC SCH (09:17)
[2017-12-01] MEDS: OLMESARTAN PO SCH (09:18)
[2017-12-01] MEDS: HYDROCHLOROTHIAZIDE PO SCH (09:18)
[2017-12-01] MEDS: OMEGA-3 FATTY ACIDS 1,000 MG CAP PO SCH (09:19)
--- NOTE | 2017-12-01 10:04 | ECHO ---
[email or web address] [address] [address] Main: [phone] Fax: Transthoracic Echocardiogram Name: RENNY HUERTA MR#: [id number] Study Date: 11/30/2017 Study Time: 04:09 PM Date of : 1935 Age: 82 year(s) Height: 160 cm (63 in.) Weight: 59.87 kg (132 lb.) BSA: 1.62 m2 Gender: Female Examination: Echo Indication: Eval for endocarditis, on chemo, Fever unknown origin, picc line in place Image Quality: Adequate Contrast: Requested by: Dinorah Sun BP: 119 mmHg/63 mmHg Heart Rate: Rhythm: Indication: Eval for endocarditis, on chemo, Fever unknown origin, picc line in place Procedure Staff Student Counselor: Dinorah Leahy RDCS Reading Physician: Rodrigo Cope MD Requesting Provider: Conclusions: 1)Normal LV size and systolic function with a LVEF of 68% and normal wall motions. 2)Mild concentric LVH with mid diastolic dysfunction noted. 3)Mild left atrial enlargement noted. 4)Normal bioprosthetic AVR with normal gradients and no AI noted. 5)Mild MR without MV prolapse. 6)Trivial TR noted. Unable to assess PA pressures secondary to inadquate TR jet velocity. Measurements: Chambers Valvular Assessment AV/MV Valvular Assessment TV/PV Normal Normal Normal Name Value Range Name Value Range Name Value Range Ao Selena (2D): 2.7 cm (1.4 cm-2.6 AV Vmax: 2.60 m/s (1 m/s-1.7 PV Vmax: 0.94 m/s (0.6 m/s-0.9 cm) m/s) m/s) IVSd (2D): 1.0 cm (0.6 cm-1.1 AV maxP mmHg ( - ) PV PGmax: 4 mmHg ( - ) cm) AV meanP mmHg ( - ) LVDd (2D): 3.6 cm (3.9 cm-5.3 ROB (VTI): 1.0 cm ( - ) cm) MV E Vmax: 0.95 m/s ( - ) LVDs (2D): 2.4 cm (2.1 cm-4 MV A Vmax: 1.47 m/s ( - ) cm) MV E/A: 0.65 ( - ) LVPWd (2D): 1.1 cm ( - ) MV PHT: 0.067 s ( - ) LVOTd 1.6 cm 1.6 cm mm MVA (PHT): 3.3 s ( - ) LVEF (BP): 68 % (>=55 %) RVDd(2D): 2.6 cm (1.9 cm-3.8 cmmm) Continued Measurements: Chambers Valvular Assessment AV/MV Name Value Name Value Patient: RENNY HUERTA Study Date: 11/30/2017 Page 1 of 2 04:09 PM LADs: 4.2 cm MV DecTime: 232 m/s LADs Lon.4 cm MV E' Septal: 0.06 m/s LA Area: 18.3 cm2 MV E/E' Septal: 17.10 LA Volume: 48 ml MV E/E' Lateral: 11.90 LA Volume Index: 29.6 ml/m2 RA Area: 14.3 cm2 Additional Vessels Name Value Ao Ascendin.0 cm Inferior Vena Cava: 1.2 cm Findings: Left Ventricle: Normal size left ventricle. Mild concentric LV hypertrophy. Normal global systolic LV function. EF is 68 %. No regional wall motion abnormality. Grade 1 diastolic dysfunction (abnormal relaxation). Right Ventricle: Normal size right ventricle. Normal RV function. Left Atrium: The left atrium is mildly dilated. Right Atrium: The right atrium is normal in size. Mitral Valve: Moderate mitral annular calcification. Mild mitral valve regurgitation is present. No evidence of endocarditis noted. Aortic Valve: The aortic valve is a bioprosthesis. Normal functioning aortic valve prosthesis. The prosthetic aortic valve is normal. The orifice motion of the prosthetic aortic valve is normal. No prosthesis regurgitation. Tricuspid Valve: The tricuspid valve is normal in appearance and function. Trivial tricuspid valve regurgitation. Pulmonic Valve: The pulmonic valve is normal in appearance and function. Mild to moderate pulmonic valve regurgitation. Aorta: The aorta is normal. Normal size aortic root measuring 2.7 cm. Normal size ascending aorta measuring 3.0 cm. IVC: The IVC is normal sized. Pericardium: No pericardial effusion. No pleural effusion. Exam Comments: Patient has breast implants making imaging technically difficult. (No Signature Object) Patient: RENNY HUERTA Study Date: 11/30/2017 Page 2 of 2 04:09 PM [id number]
[2017-12-01] MEDS: VALACYCLOVIR HCL 1000 MG PO SCH ×2 (11:00→12:16)
[2017-12-01] MEDS: MAGNESIUM CITRATE PO SCH ×2 (11:00→20:26)
--- NOTE | 2017-12-01 11:34 | SOAPPROG ---
SOAP Progress Note Assessment/Plan: Assessment: 1. Fever-39.1 yesterday with drenching sweats. No clear source, prior infection at PICC access site. PICC to be pulled, Cultures negative, on vancomycin. Has prosthetic valve. ID to see. 2. Mantle cell lymphoma with retro-orbital involvement and diffuse infiltration of temporalis muscle and extensive intra-abdominal adenopathy. S/p two cycles of Bendamustine and Rituxan with evidence of response. Treatment will need to be resumed once infection cleared. Options include continuing with BR versus ibrutinib/Rituxan. Dr. Ndiaye will be discussing in more detail as an outpatient. Plan: 12/01/17 11:30 Subjective: feels well now, but had fever last night. no tenderness at PICC, no new symptoms Objective: Vital Signs Temp Pulse Resp BP Pulse Ox 36.9 C 102 H 17 144/64 H 95 12/01/17 09:28 12/01/17 09:28 12/01/17 09:28 12/01/17 09:28 12/01/17 09:28 Laboratory Results 12/01/17 04:54 12/01/17 04:54 11/30/17 12/01/17 12/02/17 05:59 05:59 05:59 Intake Total 600 650 Output Total 1100 200 Balance -500 450 PT 14.5 SEC (12.0-15.0) 11/29/17 19:30 INR 1.11 (0.83-1.16) 11/29/17 19:30 Physical Exam - Physical Exam General Appearance: alert, no apparent distress Neck: supple Respiratory: lungs clear Abdomen: non-tender, soft Skin: other (PICC exit site looks fine.) Extremities: No pedal edema ICD10 Worksheet Patient Problems: Problems Problem Status Onset Fever Acute Lymphoma Acute Maintenance chemotherapy Acute Chest pain Acute
[2017-12-01] MEDS: ACETAMINOPHEN 325 MG TAB PO PRN (13:24)
--- NOTE | 2017-12-01 13:58 | HOSPPROG ---
Hospitalist Progress Note Assessment/Plan: #SIRs: fever, tachycardia. Hemodynamically stable. -denies infectious symptoms. Recently treated cellulitis around PICC site. Pull PICC and monitor fevers -culture from blood/PICC drawn here. Empiric Vanc with persistent fever. Echo neg for vegetation -Dr. Alexandre to to eval -awaiting further records from [facility] #Epigastric pain: trial tums #Mantle cell lymphoma: PET 11/27 shows less orbital enhancement, lymphomatous involvement decreased -s/p 2 cycles Bendamustine/Rituxan. Dr. Ndiaye to discuss further treatment #h/o aortic stenosis: s/p valve #Hyponatremia: resolved. #HTN: home meds #Normocytic anemia: no active bleeding #Hypoalbuminemia: from cancer, acute illness #DVT ppx: LMWH #Disp: inpt admission for IV abx Subjective: fevered last night Objective: Vital Signs Temp Pulse Resp BP Pulse Ox 38.7 C H 102 H 16 107/63 94 12/01/17 12:42 12/01/17 11:43 12/01/17 11:43 12/01/17 11:43 12/01/17 11:43 Laboratory Results 12/01/17 04:54 12/01/17 04:54 11/30/17 12/01/17 12/02/17 05:59 05:59 05:59 Intake Total 600 650 281 Output Total 1100 200 Balance -500 450 281 PT 14.5 SEC (12.0-15.0) 11/29/17 19:30 INR 1.11 (0.83-1.16) 11/29/17 19:30 - Time Spent With Patient Time Spent with Patient: greater than 35 minutes Time Spent with Patient: Greater than 35 minutes spent on this patients care, greater than 50% of time spent counseling, educating, and coordinating care regarding the above mentioned plan. - Physical Exam Constitutional: no apparent distress Eyes: PERRL Ears, Nose, Mouth, Throat: moist mucous membranes Cardiovascular: regular rate and rhythym Respiratory: no respiratory distress Gastrointestinal: normoactive bowel sounds Genitourinary: no bladder fullness Skin: warm Musculoskeletal: other (RUE PICC with no redness or palpable cord) Neurologic: AAOx3, CN II-XII Intact Psychiatric: interacting appropriately ICD10 Worksheet Patient Problems: Problems Problem Status Onset Fever Acute Lymphoma Acute Maintenance chemotherapy Acute Chest pain Acute
--- NOTE | 2017-12-01 15:01 | GCON ---
[f rep st] CONSULTATION INPATIENT INFECTIOUS DISEASE CONSULTATION. REFERRING PHYSICIAN: Dinorah Sun MD REASON FOR REFERRAL: Fever. HISTORY OF PRESENT ILLNESS: Patient is an 82-year-old female who was an underlying diagnosis of mant le cell lymphoma that presented in a very unusual way with infiltration of the tissues around her opt ical nerves and in the temporal region. The patient also showed extensive retroperitoneal mesenteric and inguinal adenopathy. The patient was treated with bendamustine and rituximab for her mantle micah l lymphoma beginning on October 14. She received her 2nd cycle on November 11. She then went to [facility] for evaluation for lymphoma expert there where an MRI recently confirmed that she had significant r esponse to chemotherapy. While at [facility], the patient developed fevers. These fevers were from 38-39 degrees Celsius. They were daily events and they presented without any localizing symptoms. The patient was at [facility] for the better part of a week being evaluated for these fever s. No etiology was determined. The patient apparently became tired of being in [place] and began ta david Tylenol surreptitiously to decrease her fevers to allow her to be discharged. She was then disc harged on Saturday and flew back to [place]. She continued to have fevers off Tylenol and re-presented to [facility] with complaints of continuing fevers. She continues to not have any oth er symptoms except for fevers and sweats. She denies any gastrointestinal symptoms. She denies any respiratory symptoms. Denies any urinary symptoms. She has had a PICC line that was in place in her right arm since October 07. The orders are pending for her to have this PICC line removed. The nurse ede williamson remove it after her current vancomycin dose completes. PAST MEDICAL HISTORY: 1. Bioprosthetic aortic valve replacement. 2. Coronary artery disease. 3. Hyperlipidemia. 4. Hypertension. 5. Mantle cell lymphoma. PAST SURGICAL HISTORY: 1. Bioprosthetic aortic valve replacement in June 2013. 2. Appendectomy. 3. Nasal fracture repair. 4. Ovarian cystectomy. ANTIBIOTICS: Vancomycin. ALLERGIES: Cephalexin. She is also allergic to a malaria medication that is not identified. SOCIAL HISTORY: Patient was born in [facility] during or just before WW[place]. She moved to [facility] as a 10-y ear-old. She grew up in [place] and came to the [place] in her 20s. She and had childre n in the [place]. She has no knowledge of any particular infectious event or exposure during h er life. She drinks alcohol occasionally. No tobacco use. FAMILY HISTORY: Reviewed but noncontributory. REVIEW OF SYSTEMS: Other than that detailed above in history of present illness, comprehensive 10-sy stem review is negative. PHYSICAL EXAMINATION: VITAL SIGNS: Temperature maximum is 38.7, temperature current is 38.7, heart rate is 102, respiratory rate is 16, blood pressure is 107/63. GENERAL: The patient is a well-forme d, well-nourished, elderly female, in no acute distress. She is mildly toxic in appearance. She is alert and oriented x3. She has a pleasant demeanor. HEENT: Normocephalic for age. Atraumatic. No scleral icterus. No oral lesion or drainage from the nares. Eyes lids and conjunctivae are within normal limits. Pupils are equal and round bilaterally. NECK: Supple. No meningismus. LUNGS: Clear to auscultation bilaterally, good effort. HEART: Tacycardic but regular. No murmur, rub, or gallop noted. ABDOMEN: Soft, nontender, no mass es. SKIN: Warm and dry to the touch. No rash or lesion. MUSCULOSKELETAL: No muscle belly tendern ess is noted. No joint line effusion or arthritis seen. NEURO: Cranial nerves 2-[address] Peripheral sensation seems intact in extremities. LABORATORY DATA: Patient has a CBC dated 12/01/2017, white blood cell count is 2.46, hemoglobin 9.4, hematocrit 26.6, and platelet count is 213, differential is somewhat left-shifted with 81% segmented neutrophils, 6.5% lymphocytes. Serum chemistries on 12/01/2017, show sodium 138, potassium 3.2, chl oride of 105, bicarb 28, BUN of 11, creatinine 0.4. Urinalysis shows 1+ blood, 1-3 red cells, 1-3 wh ite cells. MICROBIOLOGIC DATA: Patient had blood cultures dated November 29 - , sets are no growth to date. Uri ne culture dated November 29 is no growth today. RADIOLOGIC DATA: The patient has a chest x-ray dated 11/29/2017, which shows peribronchial thickenin g, mild fluid overload. The patient also has an echocardiogram that shows no evidence of valvular dy sfunction or endocarditis lesions. ASSESSMENT: Fever status post bendamustine and rituximab therapy. Fever has been ongoing despite co mpletion of the cycle a significant time ago. This increases concerns that there is infectious etiol ogy for this fever. The PICC line clearly has to be removed. There is no obvious infection from blo od cultures drawn through it, but the PICC line itself may have some contamination which is continuin g to cause her fevers. This will be removed shortly and if the fevers go away in the next 24 hours, then likely that is going to be the explanation. The hard part is if the fevers do not go away. If they do not go away an infectious issue is likely, although it is unclear what the etiology would be. [facility] was working on this fever workup for the better part of a week and likely has a lot of resulted or pending laboratories. We should not repeat these, but instead obtain these results from [facility] and then react and test from there. We will obtain these results and comment on them as they are available. PLAN: 1. Removal of PICC line. 2. Follow fever curve. 3. Obtain test results from [facility] and comment based on results. /[id number]/MODL
[2017-12-01] MEDS: PRAVASTATIN SODIUM 20 MG TAB PO SCH (20:27)
[2017-12-01] MEDS: MELATONIN 3 MG TAB PO SCH (20:39)
[2017-12-02] MEDS: VANCOMYCIN HCL/NORMAL SALINE 250 ML IV SCH ×2 (00:58→13:41)
[2017-12-02] MEDS: ACETAMINOPHEN 325 MG TAB PO PRN (01:05)
[2017-12-02 04:59] LABS: PLATELET COUNT 234 10^3/uL (150-400)
--- NOTE | 2017-12-02 09:51 | ASMTCMCOM ---
CM Note CM Note Notes: Pt currently on IV vanco for infection. Plan is to remove PICC to see if that is source. If pt does need IV ABX at home, She is current with [facility] for [facility] care and has [facility] in the past. Plan: TBD Date Signed: 12/02/2017 09:50 AM Electronically Signed By:Maddi Jacobsen LCSW
[2017-12-02] MEDS: ENOXAPARIN 40 MG/0.4 ML SYR SC SCH (09:52)
[2017-12-02] MEDS: OMEGA-3 FATTY ACIDS 1,000 MG CAP PO SCH (09:53)
[2017-12-02] MEDS: ASPIRIN 81 MG CHEWABLE TAB PO SCH (09:53)
[2017-12-02] MEDS: OLMESARTAN PO SCH (09:54)
[2017-12-02] MEDS: CHOLECALCIFEROL VIT D3 1,000 UNITS TAB PO SCH (09:54)
[2017-12-02] MEDS: HYDROCHLOROTHIAZIDE PO SCH (09:54)
--- NOTE | 2017-12-02 10:21 | PCMIDPN ---
Assessment/Plan: Assessment: Fever- unclear etiology most recent episode to 38.7 at midnight last night. PICC line removed yesterday afternoon. Will continue to follow fever curve. Patient only spent 36 hr at the hospital in [place] so there was not much lab work done at that point. We will wait and track her fever curve for another day following PICC removal. Checked cortisol level which was sufficient in the late morning to rule out adrenal insufficiency as a cause. Plan: 1. Continue to track fever curve. 2. Follow up on culture results. 12/02/17 14:11 Subjective: Patient continues to note having subjective fevers last night. Feels chilled this morning but no fever materialized. No localizing symptoms whatsoever. Objective: Vancomycin # 2 Vital Signs Temp Pulse Resp BP Pulse Ox 36.4 C 86 16 134/66 H 92 12/02/17 08:02 12/02/17 08:02 12/02/17 08:02 12/02/17 08:02 12/02/17 08:02 Laboratory Results 12/02/17 04:24 12/01/17 04:54 12/01/17 12/02/17 12/03/17 05:59 05:59 05:59 Intake Total 650 731 Output Total 200 Balance 450 731 - Physical Exam General Appearance: WD/WN, alert, no apparent distress, non-toxic Respiratory: lungs clear, normal breath sounds, No respiratory distress Cardiac/Chest: regular rate, rhythm, No tachycardia Abdomen: non-tender, soft Skin: normal color, warm/dry, No rash Neuro/Psych: alert, normal mood/affect, oriented x 3 ICD10 Worksheet Patient Problems: Problems Problem Status Onset Fever Acute Lymphoma Acute Maintenance chemotherapy Acute Chest pain Acute
--- NOTE | 2017-12-02 10:52 | SOAPPROG ---
SOAP Progress Note Assessment/Plan: Assessment: . Fever-39.1 yesterday with drenching sweats. No clear source, prior infection at PICC access site. PICC pulled, Cultures negative, on vancomycin. Has prosthetic valve. ID consulting, cultures pending, unlikely to be tumor fever given excellent response 2. Mantle cell lymphoma with retro-orbital involvement and diffuse infiltration of temporalis muscle and extensive intra-abdominal adenopathy. S/p two cycles of Bendamustine and Rituxan with evidence of response. Treatment will need to be resumed once infection cleared. Options include continuing with BR versus ibrutinib/Rituxan. Dr. Ndiaye will be discussing in more detail as an outpatient. Plan:observe for now, check cultures, try to review w/u from [facility], discussed with Dr Ndiaye and Baldomero 12/02/17 10:48 Subjective: Feels ok, fever last night Objective: Vital Signs Temp Pulse Resp BP Pulse Ox 97.6 F 86 16 134/66 H 92 12/02/17 08:02 12/02/17 08:02 12/02/17 08:02 12/02/17 08:02 12/02/17 08:02 Laboratory Results 12/02/17 04:24 12/01/17 04:54 12/01/17 12/02/17 12/03/17 05:59 05:59 05:59 Intake Total 650 731 Output Total 200 Balance 450 731 PT 14.5 SEC (12.0-15.0) 11/29/17 19:30 INR 1.11 (0.83-1.16) 11/29/17 19:30 Physical Exam - Physical Exam General Appearance: alert, no apparent distress Respiratory: lungs clear, normal breath sounds Cardiac/Chest: regular rate, rhythm Abdomen: normal bowel sounds, non-tender ICD10 Worksheet Patient Problems: Problems Problem Status Onset Fever Acute Lymphoma Acute Maintenance chemotherapy Acute Chest pain Acute
[2017-12-02] MEDS: VALACYCLOVIR HCL 1000 MG PO SCH (13:41)
--- NOTE | 2017-12-02 16:06 | HOSPPROG ---
Hospitalist Progress Note Assessment/Plan: SIRs: fever, tachycardia. Hemodynamically stable. denies infectious symptoms. Recently treated cellulitis around PICC site. Pull PICC and monitor fevers culture from blood/PICC drawn here. Empiric Vanc with persistent fever. Echo neg for vegetation Dr. 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 Dr. Ndiaye to discuss further treatment h/o aortic stenosis: s/p valve Hyponatremia: resolved. HTN: home meds Normocytic anemia: no active bleeding Hypoalbuminemia: from cancer, acute illness DVT ppx: LMWH Disp: inpt admission for IV abx Subjective: case d/w fatoumata rodriguez Objective: Vital Signs Temp Pulse Resp BP Pulse Ox 36.8 C 100 12 134/70 H 94 12/02/17 12:44 12/02/17 12:44 12/02/17 12:44 12/02/17 12:44 12/02/17 12:44 Laboratory Results 12/02/17 04:24 12/01/17 04:54 12/01/17 12/02/17 12/03/17 05:59 05:59 05:59 Intake Total 650 731 Output Total 200 Balance 450 731 PT 14.5 SEC (12.0-15.0) 11/29/17 19:30 INR 1.11 (0.83-1.16) 11/29/17 19:30 - Physical Exam Constitutional: no apparent distress, appears nourished Eyes: PERRL, anicteric sclera Ears, Nose, Mouth, Throat: moist mucous membranes, hearing normal Cardiovascular: regular rate and rhythym, no murmur, rub, or gallop Respiratory: no respiratory distress, no rales or rhonchi Gastrointestinal: normoactive bowel sounds, soft, non-tender abdomen Genitourinary: no bladder fullness, No tolliver in urethra Skin: warm, normal color Musculoskeletal: full muscle strength, no muscle tenderness Neurologic: AAOx3 ICD10 Worksheet Patient Problems: Problems Problem Status Onset Fever Acute Lymphoma Acute Maintenance chemotherapy Acute Chest pain Acute
[2017-12-02] MEDS: MELATONIN 3 MG TAB PO SCH (20:36)
[2017-12-02] MEDS: PRAVASTATIN SODIUM 20 MG TAB PO SCH (20:36)
[2017-12-02] MEDS: MAGNESIUM CITRATE PO SCH (20:36)
[2017-12-03] MEDS: VANCOMYCIN HCL/NORMAL SALINE 250 ML IV SCH (00:31)
[2017-12-03 05:21] LABS: PLATELET COUNT 221 10^3/uL (150-400)
[2017-12-03] MEDS: OMEGA-3 FATTY ACIDS 1,000 MG CAP PO SCH (08:41)
[2017-12-03] MEDS: ENOXAPARIN 40 MG/0.4 ML SYR SC SCH (08:41)
[2017-12-03] MEDS: ASPIRIN 81 MG CHEWABLE TAB PO SCH (08:41)
[2017-12-03] MEDS: CHOLECALCIFEROL VIT D3 1,000 UNITS TAB PO SCH (08:41)
[2017-12-03 08:46] VITALS: BP 122/62
[2017-12-03] MEDS: OLMESARTAN PO SCH (08:52)
[2017-12-03] MEDS: HYDROCHLOROTHIAZIDE PO SCH (08:52)
--- NOTE | 2017-12-03 09:32 | PCMIDPN ---
Assessment/Plan: # Fever, unclear etiology - seems to be resolved w removal of PICC line. No positive blood cx and tip cx neg. PICC line site without abnormality. --dc off antibiotics --dc vancomycin and trough today # Lymphoma. Patient is on Bendamustine and Rituxan, last 3 weeks ago. Hepatitis B serologies negative Meds vancomycin 1gm IV q12 Microbiology 12/01/17 15:45 Catheter Tip : NGTD 11/29/17 23:20 Blood Cx (3) : NGTD Subjective: Patient feeling well. She denies oral pain, rhinorrhea, sore throat, cough, rash, diarrhea. She is feeling well and wants discharge from the hospital Objective: Vital Signs Temp Pulse Resp BP Pulse Ox 36.5 C 89 12 122/62 H 93 12/03/17 08:42 12/03/17 08:42 12/03/17 08:42 12/03/17 08:42 12/03/17 08:42 Laboratory Results 12/03/17 04:54 12/01/17 04:54 12/02/17 12/03/17 12/04/17 05:59 05:59 05:59 Intake Total 731 1400 Balance 731 1400 - Physical Exam General Appearance: alert, no apparent distress EENT: other (No oral ulceration), No thrush Respiratory: lungs clear, No accessory muscle use Neck: supple Cardiac/Chest: regular rate, rhythm, systolic murmur (Faint) Extremities: other (Right upper extremity PICC line insertion site medial arm without abnormality, no arm swelling), No pedal edema Skin: No rash Neuro/Psych: alert, normal mood/affect, oriented x 3 - Time Spent With Patient Time Spent with Patient: greater than 25 minutes (Care coordinated with Oncology and hospitalist) Time Spent with Patient: Greater than 25 minutes spent on this patients care, greater than 50% of time spent counseling, educating, and coordinating care regarding the above mentioned plan. ICD10 Worksheet Patient Problems: Problems Problem Status Onset Chest pain Acute Fever Acute Lymphoma Acute Maintenance chemotherapy Acute
--- NOTE | 2017-12-03 09:49 | HOSPPROG ---
Hospitalist Progress Note Assessment/Plan: SIRs: fever, tachycardia. Hemodynamically stable. denies infectious symptoms. Recently treated cellulitis around PICC site. Pull PICC and monitor fevers culture from blood/PICC drawn here. Empiric Vanc with persistent fever. Echo neg for vegetation Dr. 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 Dr. Ndiaye to discuss further treatment h/o aortic stenosis: s/p valve Hyponatremia: resolved. HTN: home meds Normocytic anemia: no active bleeding Hypoalbuminemia: from cancer, acute illness DVT ppx: LMWH Disp: home today > 30 minutes Subjective: afebrile! case discussed w dr abbott Objective: Vital Signs Temp Pulse Resp BP Pulse Ox 36.5 C 89 12 122/62 H 93 12/03/17 08:42 12/03/17 08:42 12/03/17 08:42 12/03/17 08:42 12/03/17 08:42 Laboratory Results 12/03/17 04:54 12/01/17 04:54 12/02/17 12/03/17 12/04/17 05:59 05:59 05:59 Intake Total 731 1400 Balance 731 1400 PT 14.5 SEC (12.0-15.0) 11/29/17 19:30 INR 1.11 (0.83-1.16) 11/29/17 19:30 - Physical Exam Constitutional: no apparent distress, appears nourished Eyes: PERRL, anicteric sclera Ears, Nose, Mouth, Throat: moist mucous membranes, hearing normal Cardiovascular: regular rate and rhythym, no murmur, rub, or gallop Respiratory: no respiratory distress, no rales or rhonchi Gastrointestinal: normoactive bowel sounds, soft, non-tender abdomen Genitourinary: no bladder fullness, No tolliver in urethra Skin: warm, normal color Musculoskeletal: full muscle strength Neurologic: AAOx3 ICD10 Worksheet Patient Problems: Problems Problem Status Onset Fever Acute Lymphoma Acute Maintenance chemotherapy Acute Chest pain Acute
--- NOTE | 2017-12-03 10:22 | SOAPPROG ---
SOAP Progress Note Assessment/Plan: Assessment: . Fever- No clear source, prior infection at PICC access site. PICC pulled, Cultures negative, on vancomycin. Has prosthetic valve. ID consulting, cultures pending, unlikely to be tumor fever given excellent response, now afebrile times 24 hours 2. Mantle cell lymphoma with retro-orbital involvement and diffuse infiltration of temporalis muscle and extensive intra-abdominal adenopathy. S/p two cycles of Bendamustine and Rituxan with evidence of response. Treatment will need to be resumed once infection cleared. Options include continuing with BR versus ibrutinib/Rituxan. Dr. Ndiaye will be discussing in more detail as an outpatient. Plan:Home today, follow up scheduled Dr Ndiaye Saturday, orders in for Ibrutinib 12/02/17 10:48 12/03/17 10:19 Subjective: Feels ok Objective: Vital Signs Temp Pulse Resp BP Pulse Ox 97.7 F 89 12 122/62 H 93 12/03/17 08:42 12/03/17 08:42 12/03/17 08:42 12/03/17 08:42 12/03/17 08:42 Laboratory Results 12/03/17 04:54 12/01/17 04:54 12/02/17 12/03/17 12/04/17 05:59 05:59 05:59 Intake Total 731 1400 Balance 731 1400 PT 14.5 SEC (12.0-15.0) 11/29/17 19:30 INR 1.11 (0.83-1.16) 11/29/17 19:30 Physical Exam - Physical Exam General Appearance: alert, no apparent distress ICD10 Worksheet Patient Problems: Problems Problem Status Onset Fever Acute Lymphoma Acute Maintenance chemotherapy Acute Chest pain Acute
--- NOTE | 2017-12-03 10:28 | ASMTLACE ---
LACE Length of stay for Answers: 3 days current admission Acuity / Level of Answers: Yes Care: Did the patient have an inpatient admission? Comorbidities - select Answers: Any tumor (including all that apply lymphoma or leukemia) Other Notes: HTN; HLD # of Emergency department Answers: 5-8 visits in the last 6 months Social determinants Answers: Mental health diagnosis (anxiety, depression, pers onality disorders, etc.) Score: 16 Date Signed: 12/03/2017 10:00 AM Electronically Signed By:Ros Kim
== END 2017-12-03 11:39 | disposition home or self-care (01) | DRG 864 ==
LOC: F1N 22:19
PROVIDERS: ADMIT Internal Medicine; ATTEND Internal Medicine
DX: R50.9 Fever, unspecified (principal); C83.10 Mantle cell lymphoma, unspecified site; E87.1 Hypo-osmolality and hyponatremia; E86.9 Volume depletion, unspecified; E78.5 Hyperlipidemia, unspecified; I10 Essential (primary) hypertension; Z95.3 Presence of xenogenic heart valve; R35.1 Nocturia; D64.9 Anemia, unspecified; E88.09 Other disorders of plasma-protein metabolism, not elsewhere classified
CPT/HCPCS: 97166-GO; G8987-GO-CI; G8988-GO-CI; J1650; J3370

== ENCOUNTER 2017-12-18 23:11 | Inpatient (IN) | payer OTHER ==
[2017-12-18] MEDS ORDERED: NS 1,000 ML IV ONE ×2 (23:23→23:32)
--- NOTE | 2017-12-18 23:23 | EDPHY ---
H & P Stated Complaint: chills, abd pain after Imbruvica injection Time Seen by Provider: 12/18/17 23:23 HPI/ROS: HPI CHIEF COMPLAINT: Chills, abdominal pain, fever HISTORY OF PRESENT ILLNESS: This is a 82-year-old female, a cancer patient, has mantle cell lymphoma, she presents emergency room with rigors and chills this evening. Additionally has abdominal pain. Describes her pain as a nausea and achy sensation epigastric. She also complains of reflux. She got chills and rigors approximately 3 hr ago. Associated nausea but no vomiting. Denies diarrhea. It is noted upon arrival to the emergency room she is tachycardic to the 120s, febrile, and O2 sat of 90%. She is currently getting chemotherapy. Followed by Dr. Ndiaye. She was hospitalized for and had a workup for fever of unknown origin, had a PICC line. Does not currently have a PICC line. Past Medical History: Mantle cell, fever unknown etiology recently, anemia Past Surgical History: Aortic valve, PICC line Social History: Lives locally, denies drugs alcohol tobacco. Family History: Noncontributory ROS REVIEW OF SYSTEMS: 10 Systems were reviewed and negative with the exception of the elements mentioned in the history of present illness. Exam Constitutional triage nursing summary reviewed, vital signs reviewed, awake/ alert. Vital signs noted at triage tachycardic, febrile. Hypoxic. Eyes normal conjunctivae and sclera, EOMI, PERRLA. HENT normal inspection, atraumatic, moist mucus membranes, no epistaxis, neck supple/ no meningismus, no raccoon eyes. Respiratory clear to auscultation bilaterally, normal breath sounds, no respiratory distress, no wheezing. Cardiovascular tachycardia, regular rhythm, no murmur, no edema, distal pulses normal. Gastrointestinal soft, non-tender, no rebound, no guarding, normal bowel sounds, no distension, no pulsatile mass. Genitourinary no CVA tenderness. Musculoskeletal no midline vertebral tenderness, full range of motion, no calf swelling, no tenderness of extremities, no meningismus, good pulses, neurovascularly intact. Skin pink, warm, & dry, no rash, skin atraumatic. Neurologic awake, alert and oriented x 3, AAOx3, moves all 4 extremities equally, motor intact, sensory intact, CN II-XII intact, normal cerebellar, normal vision, normal speech. Psychiatric normal mood/affect. Heme/Lymph/Immune no lymphadenopathy. Differential Diagnosis: Includes but is not limited to in a particular order acute febrile illness, bacteremia, sepsis, neutropenic fever, pneumonia, UTI, dehydration Medical Decision Making: Plan for this patient IV establishment, lactic acid, blood cultures, IV fluid bolus, check labs, obtain white count, chest x-ray, urinalysis, Re-evaluation: CT scan abdomen pelvis with IV contrast for abdominal pain and fever shows small consolidation bilateral lower lung schwarz. Additionally some inflammation the gastric antrum. But otherwise no acute inflammatory process seen on the CT scan. Given this patient's tachycardia, fever, elevated lactic acid, on chemotherapy, with a white count less than 5000 with a bandemia very concerning for sepsis. I have ordered her IV vancomycin IV cefepime. I will consult Oncology. Additionally the patient be admitted to the hospital service for fever. Repeat lactic after 2 L of fluid. She is not hypotensive here in emergency room. Plan for hospital admission for fever. Long discussion with the patient. Agrees with IV vancomycin IV cefepime. Agrees for hospital admission. Additionally GI cocktail. 0123: Blood cultures have been pulled. Urine culture. Broad-spectrum antibiotics been given IV vancomycin IV cefepime. Additionally patient received 2 L of fluid. Lactic is trended down above 2 to 1.7 Source: Patient - Personal History Current Tetanus Diphtheria and Acellular Pertussis (TDAP): Yes Tetanus Vaccine Date: <10 years - Medical/Surgical History Hx Asthma: No Hx Chronic Respiratory Disease: No Hx Diabetes: No Hx Cardiac Disease: Yes Hx Renal Disease: No Hx Cirrhosis: No Hx Alcoholism: No Hx HIV/AIDS: No Hx Splenectomy or Spleen Trauma: No Other PMH: htn, aortic stenosis, anxiety, MVR 06/22/13, aortic valve replacement , lacrimal duct obst surg, appendectomy, nasal surg, LYMPHOMA MANTLE CELL - Social History Smoking Status: Never smoked Constitutional: Initial Vital Signs Temperature (C) 39.4 C H 12/18/17 23:12 Heart Rate 121 H 12/18/17 23:12 Respiratory Rate 18 12/18/17 23:12 Blood Pressure 182/88 H 12/18/17 23:12 O2 Sat (%) 90 L 12/18/17 23:12 O2 Delivery Mode Room Air O2 (L/minute) 2 Allergies/Adverse Reactions: cephalexin [From Keflex] Allergy (Intermediate, Verified 12/18/17 23:16) Swelling/neck,face,throat malaria medication Allergy (Uncoded 11/29/17 21:58) Other-Enter Comments Home Medications: Medication Instructions Recorded Aspirin [Aspirin 81mg (*)] 81 mg PO DAILY14 11/29/17 Cholecalciferol Vit D3 [Vitamin D3 2,000 units PO DAILY 11/29/17 (*)] LORazepam [Ativan (*)] 0.5 mg PO BID PRN 11/29/17 Olmesartan/Hydrochlorothiazide 1 each PO DAILY14 11/29/17 [Benicar Hct 40-12.5 mg Tablet] [place]-3 Fatty Acids [Fish Oil 1000 1,000 mg PO DAILY 11/29/17 mg (*)] Pravastatin Sodium 20 mg PO HS 11/29/17 Herbals/Supplements -Info Only 1 ea PO DAILY 11/30/17 Valacyclovir HCl [Valtrex] 500 mg PO DAILY 11/30/17 Ibrutinib [Imbruvica] 560 mg PO DAILY@17 12/18/17 Medical Decision Making - Diagnostics Imaging Results: Imaging Impressions Chest X-Ray 12/19/17 06:00 Impression: Stable interstitial prominence without new consolidative airspace opacification - Data Points Laboratory Results: Laboratory Results 12/19/17 04:53 12/19/17 04:53 12/19/17 11:05 Urine Osmolality 309 mosmo/kg mosmo/kg (300-900) Ur Random Sodium 102 mEq/L H mEq/L (30-90) Microbiology Results: MICROBIOLOGY 12/19/17 11:00 Nasal, Sinus - [place] Viral Transport Respiratory Panel ( PCR) - Final No Organism Detected Medications Given: Aspirin (Aspirin) 81 mg PO DAILY14 LEENA Stop: 06/17/18 14:59 Last Admin: 12/19/17 16:06 Dose: 81 mg Sodium Chloride (Ns) 1,000 mls @ 75 mls/hr IV CONT LEENA Stop: 06/17/18 02:14 Last Admin: 12/19/17 03:34 Dose: 1,000 mls Cefepime HCl 1 gm/ Sodium (Chloride) 50 mls @ 100 mls/hr IV Q8H LEENA PRN Reason: Protocol Stop: 01/18/18 09:29 Last Admin: 12/19/17 18:55 Dose: 50 mls Lorazepam (Ativan Injection) 0.5 - 1 mg IVP Q8HRS PRN PRN Reason: Anxiety Stop: 06/17/18 02:02 Last Admin: 12/19/17 02:38 Dose: 1 mg Pantoprazole Sodium (Protonix) 40 mg PO DAILY LEENA Stop: 06/17/18 10:59 Last Admin: 12/19/17 14:50 Dose: 40 mg Pravastatin Sodium (Pravachol) 20 mg PO HS LEENA Stop: 06/17/18 20:59 Last Admin: 12/19/17 21:34 Dose: 20 mg Discontinued Medications Acetaminophen (Tylenol) 1,000 mg PO EDNOW ONE Stop: 12/18/17 23:25 Last Admin: 12/19/17 00:03 Dose: Not Given Acetaminophen (Tylenol) 650 mg PO EDNOW ONE Stop: 12/19/17 00:02 Last Admin: 12/19/17 00:03 Dose: 650 mg Al Hydroxide/Mg Hydroxide (Maalox Susp) 30 ml PO ONCE ONE Stop: 12/19/17 01:28 Last Admin: 12/19/17 01:34 Dose: 30 ml Famotidine (Pepcid) 20 mg IVP EDNOW ONE Stop: 12/18/17 23:34 Last Admin: 12/18/17 23:40 Dose: 20 mg Hyoscyamine Sulfate (Levsin, Hyomax-Sl) 0.25 mg PO ONCE ONE Stop: 12/19/17 01:28 Last Admin: 12/19/17 01:34 Dose: 0.25 mg Sodium Chloride (Ns) 1,000 mls @ 0 mls/hr IV EDNOW ONE; Wide Open PRN Reason: Protocol Stop: 12/18/17 23:24 Last Admin: 12/18/17 23:43 Dose: 1,000 mls Sodium Chloride (Ns) 1,000 mls @ 0 mls/hr IV ONCE ONE PRN Reason: Wide Open Stop: 12/18/17 23:33 Last Admin: 12/18/17 23:47 Dose: 1,000 mls Cefepime HCl 2 gm/ Sodium (Chloride) 100 mls @ 200 mls/hr IV EDNOW ONE PRN Reason: Protocol Stop: 12/19/17 00:49 Last Admin: 12/19/17 01:09 Dose: 100 mls Vancomycin/Sodium Chloride (Vancomycin 1 Gm (Premix)) 250 mls @ 250 mls/hr IV EDNOW ONE PRN Reason: Protocol Stop: 12/19/17 01:39 Last Admin: 12/19/17 01:11 Dose: 250 mls Lidocaine (Lidocaine 2% Viscous) 15 ml PO ONCE ONE Stop: 12/19/17 01:28 Last Admin: 12/19/17 01:34 Dose: 15 ml Potassium Chloride (Klor-Con) 40 meq PO ONCE ONE PRN Reason: Protocol Stop: 12/19/17 21:05 Last Admin: 12/19/17 21:34 Dose: 40 meq Potassium Chloride (Klor-Con) 40 meq PO ONCE ONE Stop: 12/19/17 21:46 Last Admin: 12/19/17 21:51 Dose: 40 meq Valacyclovir HCl (Valtrex) 500 mg PO DAILY ONE Stop: 12/19/17 09:23 Last Admin: 12/19/17 11:10 Dose: 500 mg Departure - Departure Disposition: [facility] Inpatient Acute Clinical Impression: Fever Qualifiers: Fever type: unspecified Qualified Code(s): R50.9 - Fever, unspecified Sepsis Qualifiers: Sepsis type: sepsis during labor Qualified Code(s): O75.3 - Other infection during labor Condition: Fair
[2017-12-18] MEDS ORDERED: FAMOTIDINE 20 MG/2 ML SDV IVP ONE (23:33)
[2017-12-18] MEDS: ACETAMINOPHEN 500 MG TAB PO ONE (23:40)
[2017-12-18] MEDS ORDERED: IOPAMIDOL (ISOVUE-300) 100 ML BTL ONE (23:50)
[2017-12-18 23:58] LABS: PLATELET COUNT 77 10^3/uL (150-400)
[2017-12-19] MEDS ORDERED: ACETAMINOPHEN 325 MG TAB ONE (00:01)
[2017-12-19] MEDS ORDERED: ACETAMINOPHEN 325 MG TAB PO ONE (00:01)
[2017-12-19] MEDS: ACETAMINOPHEN 500 MG TAB PO ONE (00:03)
[2017-12-19 00:07] LABS: INR 1.07 (0.83-1.16); PROTIME(PATIENT) 14.1 SEC (12.0-15.0)
[2017-12-19] MEDS ORDERED: CEFEPIME HCL 2 GM in NS 100 ML IV ONE (00:20)
[2017-12-19] MEDS ORDERED: VANCOMYCIN HCL/NORMAL SALINE 250 ML IV ONE (00:40)
[2017-12-19] MEDS ORDERED: HYOSCYAMINE SULFATE 0.125 MG TAB PO ONE (01:27)
[2017-12-19] MEDS ORDERED: MAG HYDROX/AL HYDROX/SIMETH 30 ML UDCUP PO ONE (01:27)
[2017-12-19] MEDS ORDERED: LIDOCAINE 2% VISCOUS 15 ML UDCUP PO ONE (01:27)
[2017-12-19] MEDS ORDERED: HYOSCYAMINE SULFATE 0.125 MG TAB ONE (01:32)
[2017-12-19] MEDS ORDERED: LIDOCAINE 2% VISCOUS 15 ML UDCUP ONE (01:32)
[2017-12-19] MEDS ORDERED: MAG HYDROX/AL HYDROX/SIMETH 30 ML UDCUP ONE (01:32)
[2017-12-19] MEDS ORDERED: LORazepam 2 MG/ML INJ IVP PRN (02:03)
[2017-12-19] MEDS ORDERED: ACETAMINOPHEN 325 MG TAB PO PRN (02:03)
[2017-12-19] MEDS ORDERED: HYDROmorphone HCL 0.5 MG/0.5 ML SYR IVP PRN (02:03)
[2017-12-19] MEDS ORDERED: ONDANSETRON 4 MG/2 ML VIAL IVP PRN (02:03)
[2017-12-19] MEDS ORDERED: NS 1,000 ML IV SCH (02:15)
--- NOTE | 2017-12-19 02:57 | PDGENHP ---
History and Physical - Chief Complaint Fever, epigastric pain - History of Present Illness Source-patient provides history appears reliable. at bedside supplements details. EMR was reviewed and case discussed with ED provider. HPI - 82-year-old female with past medical history significant for mantle cell lymphoma undergoing chemotherapy with Rituxan and bendamustine (followed by Dr. Ndiaye), HTN, history of aortic stenosis status post AVR, mitral valve replacement who presents emergency department today with complaints of fever 3 hr prior to arrival in the ED. Patient reports that she developed high fever to 103 along with a rigors and chills. Patient underwent chemotherapy infusion on day of presentation approximately noon. She has not had any previous responses similarly to the chemotherapy. Patient also notes that she had been experiencing may expect gastric pain sharp stabbing type pain without any radiation. She has also reported the last 3 days she has been had increasing indigestion like heartburn symptoms for which she has been taking omeprazole. Patient denies any nausea or vomiting to me she just states that she has had the indigestion. She denies any diarrhea. No abdominal distension. No recent sick contact exposures or travel since she returned from [place] earlier in the month. Patient was admitted on 11/29/2017 for fever of unclear etiology. Patient was evaluated by Oncology and Infectious Disease. She had her PICC line removed at that time she had blood cultures and culture the tip of the PICC was negative for any growth subsequently. History Information - Allergies/Home Medication List Allergies/Adverse Reactions: cephalexin [From Keflex] Allergy (Intermediate, Verified 12/18/17 23:16) Swelling/neck,face,throat malaria medication Allergy (Uncoded 11/29/17 21:58) Other-Enter Comments Home Medications: Aspirin [Aspirin 81mg (*)] 81 mg PO DAILY 11/29/17 [Last Taken 11/29/17] Cholecalciferol Vit D3 [Vitamin D3 (*)] 2,000 units PO DAILY 11/29/17 [Last Taken 11/29/17] LORazepam [Ativan (*)] 0.5 mg PO BID PRN 11/29/17 [Last Taken 11/28/17] Olmesartan/Hydrochlorothiazide [Benicar Hct 40-12.5 mg Tablet] 1 each PO DAILY 11/29/17 [Last Taken 11/29/17] [place]-3 Fatty Acids [Fish Oil 1000 mg (*)] 1,000 mg PO DAILY 11/29/17 [Last Taken 11/28/17] Pravastatin Sodium 20 mg PO HS 11/29/17 [Last Taken 11/28/17] Herbals/Supplements -Info Only 1 ea PO DAILY 11/30/17 [Last Taken Unknown] Valacyclovir HCl [Valtrex] 500 mg PO DAILY 11/30/17 [Last Taken Unknown] Imbruvica 12/18/17 [Last Taken Unknown] I have personally reviewed and updated: family history, medical history, social history, surgical history - Past Medical History Additional medical history: Mantle cell lymphoma undergoing chemotherapy last received 12/18/2017. Hyperlipidemia. History UTI. HTN. Aortic stenosis status post bovine valve replacement. Mitral valve replacement 06/22/2013. Anxiety - Surgical History Additional surgical history: Appendectomy. Aortic valve replacement. Right PICC placement d/c 11/30/17. Colonoscopy - Family History Additional family history: Negative for cancer. Both parents with history of HTN. Patient with 3 adult children who are all healthy. - Social History Smoking Status: Never smoked Alcohol Use: None Drug Use: None Additional social history: Patient is and lives with her in [place]. She has 2 of her 3 children live locally. Cor status-full. Review of Systems Review of Systems: ROS: 10pt was reviewed & negative except for what was stated in HPI & below Constitutional: Reports: chills, fever, other (Rigors). Denies: diaphoresis EENMT: Reports: no symptoms. Denies: blurred vision, nose congestion, sore throat Cardiac: Reports: no symptoms. Denies: edema Gastrointestinal: Reports: abdominal pain (Epigastric see HPI). Denies: vomitting, diarrhea, nausea Genitourinary: Reports: no symptoms Muscolosketal: Reports: no symptoms Skin: Reports: no symptoms Neurological: Reports: no symptoms Hematologic/Lymphatic: Reports: anemia Physical Exam Physical Exam: Selected Entries 12/18/17 23:12 Blood Pressure Automatic Method Heart Rate 121 H Respiratory 18 Rate O2 Sat (%) 90 L Temperature (C) 39.4 C H Blood Pressure 182/88 H Mean Arterial 119 H Pressure (MAP) O2 Delivery Room Air Mode Temperature Oral Source Temp Pulse Resp BP Pulse Ox 37.7 C 96 16 138/73 H 92 12/19/17 02:16 12/19/17 02:16 12/19/17 02:16 12/19/17 02:16 12/19/17 02:16 O2 (L/minute) 2 Constitutional: chronically ill appearing, uncomfortable, other (NAD. Patient lays quietly in bed with her eyes closed. She appears acutely ill but nontoxic. Patient of also appears quite fatigued. at bedside.) Eyes: PERRL, anicteric sclera, EOMI, No scleral injection Ears, Nose, Mouth, Throat: dry mucous membranes, other (No nasal discharge.), No poor dentition Cardiovascular: regular rate and rhythym, systolic murmur, pulses symmetric bilaterally, No tachycardia, No edema Peripheral Pulses: 1+: dorsalis-pedis (R), dorsalis-pedis (L) Respiratory: no respiratory distress, reduced air movement, inspiratory crackles (Bibasilar right greater than left.), No clear to auscultation, No expiratory wheeze, No respiratory distress, No rhonchi Gastrointestinal: normoactive bowel sounds, no palpable masses, tenderness ( Epigastrium), distension (Soft abdomen), No guarding Genitourinary: no bladder tenderness, No tolliver in urethra Skin: warm, no rashes or abrasions, other (Pallor), No abrasion, No erythema, No rash Musculoskeletal: no muscle tenderness, generalized weakness (Patient requires a little bit of assistance to sit up in bed.) Neurologic: AAOx3, sensation intact bilaterally, other (Grossly nonfocal exam.) , No facial droop Psychiatric: interacting appropriately, thought process linear, anxious, flat affect Lab Data & Imaging Review 12/18/17 23:44 12/18/17 23:44 WBC 4.27 10^3/uL (3.80-9.50) 12/18/17 23:44 RBC 4.05 10^6/uL (4.18-5.33) L 12/18/17 23:44 Hgb 12.2 g/dL (12.6-16.3) L 12/18/17 23:44 Hct 35.2 % (38.0-47.0) L 12/18/17 23:44 MCV 86.9 fL (81.5-99.8) 12/18/17 23:44 MCH 30.1 pg (27.9-34.1) 12/18/17 23:44 MCHC 34.7 g/dL (32.4-36.7) 12/18/17 23:44 RDW 16.5 % (11.5-15.2) H 12/18/17 23:44 Plt Count 77 10^3/uL (150-400) L 12/18/17 23:44 MPV 11.9 fL (8.7-11.7) H 12/18/17 23:44 Neut % (Auto) Not Reported 12/18/17 23:44 Lymph % (Auto) Not Reported 12/18/17 23:44 Summers % (Auto) Not Reported 12/18/17 23:44 Eos % (Auto) Not Reported 12/18/17 23:44 Baso % (Auto) Not Reported 12/18/17 23:44 Nucleat RBC Rel Count Not Reported 12/18/17 23:44 Absolute Neuts (auto) Not Reported 12/18/17 23:44 Absolute Lymphs (auto) Not Reported 12/18/17 23:44 Absolute Monos (auto) Not Reported 12/18/17 23:44 Absolute Eos (auto) Not Reported 12/18/17 23:44 Absolute Basos (auto) Not Reported 12/18/17 23:44 Absolute Nucleated RBC Not Reported 12/18/17 23:44 Immature Gran % Not Reported 12/18/17 23:44 Seg Neutrophils % 70.0 % 12/18/17 23:44 Band Neutrophils % 15.0 % 12/18/17 23:44 Lymphocytes % 3.0 % 12/18/17 23:44 Monocytes % 7.0 % 12/18/17 23:44 Eosinophils % 0.0 % 12/18/17 23:44 Basophils % 2.0 % 12/18/17 23:44 Metamyelocytes % 3.0 % 12/18/17 23:44 Myelocytes % 0.0 % 12/18/17 23:44 Promyelocytes % 0.0 % 12/18/17 23:44 Blast Cells % 0.0 % 12/18/17 23:44 Immature Gran # Not Reported 12/18/17 23:44 Absolute Seg Neuts 2.99 10^/uL (1.70-6.50) 12/18/17 23:44 Absolute Band Neuts 0.64 10^3/uL (0.00-0.70) 12/18/17 23:44 Absolute Lymphocytes 0.13 10^3/uL (1.00-3.00) L 12/18/17 23:44 Absolute Monocytes 0.30 10^3/uL (0.30-0.80) 12/18/17 23:44 Absolute Eosinophils 0.00 10^3/uL (0.03-0.40) L 12/18/17 23:44 Absolute Basophils 0.09 10^3/uL (0.02-0.10) 12/18/17 23:44 Absolute Metamyelocyte 0.13 10^3/mL (0.00-0.00) H 12/18/17 23:44 Absolute Myelocytes 0.00 10^3/mL (0.00-0.00) 12/18/17 23:44 Absolute Promyelocytes 0.00 10^3/uL (0.00-0.00) 12/18/17 23:44 Absolute Plasma Cells 0.00 10^3/uL (0.00-0.00) 12/18/17 23:44 Nucleated RBCs 0 /100 WBC (0-0) 12/18/17 23:44 Absolute Blast Cells 0.00 10^3/uL (0.00-0.00) 12/18/17 23:44 Plasma Cells % 0.0 % 12/18/17 23:44 Toxic Vacuolation PRESENT H 12/18/17 23:44 Platelet Estimate DECREASED (ADEQ) L 12/18/17 23:44 Schistocytes 1+ H 12/18/17 23:44 PT 14.1 SEC (12.0-15.0) 12/18/17 23:44 INR 1.07 (0.83-1.16) 12/18/17 23:44 APTT 24.0 SEC (23.0-38.0) 12/18/17 23:44 VBG Lactic Acid 1.7 mmol/L (0.7-2.1) 12/19/17 01:09 Sodium 130 mEq/L (135-145) L 12/18/17 23:44 Potassium 4.2 mEq/L (3.3-5.0) 12/18/17 23:44 Chloride 101 mEq/L (97-110) 12/18/17 23:44 Carbon Dioxide 20 mEq/l (22-31) L 12/18/17 23:44 Anion Gap 9 mEq/L (8-16) 12/18/17 23:44 BUN 22 mg/dL (7-23) 12/18/17 23:44 Creatinine 0.8 mg/dL (0.6-1.0) 12/18/17 23:44 Estimated GFR > 60 12/18/17 23:44 Glucose 98 mg/dL (70-100) 12/18/17 23:44 Calcium 8.4 mg/dL (8.5-10.4) L 12/18/17 23:44 Total Bilirubin 0.4 mg/dL (0.1-1.4) 12/18/17 23:44 Conjugated Bilirubin 0.1 mg/dL (0.0-0.5) 12/18/17 23:44 Unconjugated Bilirubin 0.3 mg/dL (0.0-1.1) 12/18/17 23:44 AST 35 IU/L (14-46) 12/18/17 23:44 ALT 42 IU/L (9-52) 12/18/17 23:44 Alkaline Phosphatase 80 IU/L (38-126) 12/18/17 23:44 Total Protein 5.4 g/dL (6.3-8.2) L 12/18/17 23:44 Albumin 3.0 g/dL (3.5-5.0) L 12/18/17 23:44 Lipase 476 IU/L (23-300) H 12/18/17 23:44 Urine Color PALE YELLOW 12/19/17 00:19 Urine Appearance CLEAR 12/19/17 00:19 Urine pH 6.0 (5.0-7.5) 12/19/17 00:19 Ur Specific [place] 1.011 (1.002-1.030) 12/19/17 00:19 Urine Protein NEGATIVE (NEGATIVE) 12/19/17 00:19 Urine Ketones NEGATIVE (NEGATIVE) 12/19/17 00:19 Urine Blood 2+ (NEGATIVE) H 12/19/17 00:19 Urine Nitrate NEGATIVE (NEGATIVE) 12/19/17 00:19 Urine Bilirubin NEGATIVE (NEGATIVE) 12/19/17 00:19 Urine Urobilinogen NEGATIVE EU (0.2-1.0) 12/19/17 00:19 Ur Leukocyte Esterase NEGATIVE (NEGATIVE) 12/19/17 00:19 Urine RBC 3-5 /hpf (0-3) H 12/19/17 00:19 Urine WBC 1-3 /hpf (0-3) 12/19/17 00:19 Ur Epithelial Cells NONE SEEN /lpf (NONE-1+) 12/19/17 00:19 Urine Mucus TRACE /lpf (NONE-1+) 12/19/17 00:19 Urine Glucose NEGATIVE (NEGATIVE) 12/19/17 00:19 Imaging Review: Portable Chest at 2332 hours History: fever, cough. Comparison: Portable chest November 29, 2017. Findings: Interstitial opacities with a basilar predominance are unchanged. Linear scarring and staple line again noted in the left lung base. Right PICC has been removed. Heart size is normal. Artificial valve and intact median sternotomy wires are noted. Impression: No acute findings in the chest. Dictated By: Howard Hansen MD CT Abdomen and Pelvis With Contrast History: Abdominal pain. Fever, mental cell lymphoma.. Comparison: CT abdomen pelvis October 04, 2017. Technique: Axial contrast-enhanced images were obtained through the abdomen and pelvis following the uneventful administration of 80 mL Isovue-300 intravenous contrast. Dose reduction techniques were utilized. Creatinine is 0.8. Findings: Abdomen: Streaky basilar opacities suggesting atelectasis are increased since the comparison. There are new patchy indistinct left lower lobe opacities (series 4 and 47 e.g. ) with less prominent patchy right lower lobe opacities. Mitral annular calcifications present. Circumscribed hypodensities in the liver aren't not significantly changed, with a bilobed 2 cm cyst in the posterior right hepatic lobe with additional hypodensities too small to characterize statistically likely represent cysts. The gallbladder, spleen, pancreas, and adrenals are normal. Mild right hydronephrosis is present with fullness of the left renal pelvis with mild caliectasis. Multiple parapelvic cysts are present in the left kidney. Circumscribed hypodensities in both kidneys are too small to characterize, statistically likely represent cysts. Mild apparent thickening of the gastric antrum (series 4 image 111) could be related to peristalsis. Moderate colonic diverticulosis is present without evidence of diverticulitis. There is no free fluid or air. A tiny fat-containing umbilical hernia is present. Moderate atherosclerosis is present in a normal caliber aorta. The IVC, hepatic , portal, splenic, and superior mesenteric veins are patent. Previously noted mesenteric and retroperitoneal adenopathy has improved. A subacute mild compression fracture of the superior endplate of L2 is not significantly changed, with no retropulsion. Pelvis: The bladder is distended. Calcified uterine fibroids are noted. Adenopathy has improved, with a 1.5 x 0.6 cm right inguinal node (series 5 image 227) previously measuring 2.9 x 1.1 cm. Impression: 1. Marked improvement in adenopathy. 2. Patchy basilar opacities, left greater than right, which could be inflammatory or infectious. 3. Apparent thickening of the gastric antrum, which could related to underdistention/peristalsis or less likely inflammation. 4. Stable subacute/old mild L2 compression fracture. 5. Additional findings as above. Findings discussed with Ric Madden MD 12/19/2017 at 0:53. Dictated By: Howard Hansen MD Assessment & Plan Assessment: 82-year-old female with a history of mantle cell lymphoma currently undergoing chemotherapy today, HTN, aortic stenosis status post AVR, status post MVR who presents emergency department today with complaints of fever and abdominal pain. Fever (Acute) - see discussion below. Severe Sepsis (Acute) - patient with the fever, tachycardia, bandemia, lactic acidosis. Has improved status post 2 L of IV fluid with normalization patient' s lactate. Blood cultures x2 have been ordered. UA negative for evidence of occult infection. Patient's chest x-ray and CT abdomen pelvis show bibasilar patchy opacities which by comparison appear to be stable since her last hospital stay. Patient denies any respiratory type symptoms. She did receive chemotherapy earlier today. She patient has been started on vancomycin and cefepime which will be continued. Oncology was called from the emergency department. Patient additionally reports she has been followed by Dr. Gray since her discharge will plan to consult Infectious Disease in addition given her recent hospital stay with fever. Abdominal pain - patient complaining of epigastric pain. Potentially some evidence of gastric antrum thick wall thickening. Patient is currently on omeprazole and complaining of some persistent indigestion. She has received Pepcid in the emergency department. Will continue with Protonix. P.r.n. Ativan for spasm pain and low-dose Dilaudid p.r.n.. Bilateral patchy infiltrates - as noted above. Hyponatremia - likely secondary to component of hypovolemia in setting of patient's severe sepsis and fever. Patient has received 2 L IV fluid in the emergency department will plan to repeat BMP in the morning. Mantle cell lymphoma - followed by Dr. Ndiaye. Undergoing chemotherapy last receive 12/18/2017. Thrombocytopenia - hold off on anticoagulation at this time. Monitor CBC. Anemia - likely related to patient's chronic diseases well as chemotherapy treatment. No evidence of active bleeding at this time. Monitor H&H. Hypoalbuminemia - likely secondary to patient's acute and chronic illnesses. Chronic medical issues benign essential HTN - blood pressures initially elevated. Remain improved but still slightly elevated. We resume patient's HCTZ and ARB when she is able to tolerate diet. s/p AVR s/p MVR anxiety Incidental findings on CT - diverticulosis with diverticulitis, subacute/old L2 compression fracture FEN - IV fluids overnight for supplemental hydration. Will monitor fluid status closely with his given history of diastolic dysfunction. Patient is status post IV fluids in the ED. Electrolyte monitoring replacement if needed. Advance diet as tolerated to regular. PPX-SCDs. Holding anticoagulation secondary to thrombocytopenia. Cor status-full Disposition-patient admitted initially to observation status on the medical floor at this time pending additional studies and specialty recommendations.
[2017-12-19 05:32] LABS: PLATELET COUNT 69 10^3/uL (150-400)
[2017-12-19] MEDS ORDERED: valACYclovir 500 MG TAB PO ONE (09:22)
--- NOTE | 2017-12-19 10:20 | HOSPPROG ---
Hospitalist Progress Note Assessment/Plan: Severe sepsis - (Temp, HR, elevated lactate) source not entirely clear, ?PNA vs GI source vs viral vs drug fever. Lactate normalized, UA neg. ID consult appreciated. -cont cefepime per ID -viral serologies pending -monitor Cx data and fever curve Epigastric pain - antral thickening on CT -cont PPI -consider GI evaluation if not improving Mantel Cell lymphoma - received 2nd Rituxan infusion yesterday and developed fever of 103 same day, prompting admission -oncology consulting, discussed with Dr. [place] -holding Ibrutinib Pancytopenia - possibly 2/2 chemo. -no indication for transfusion, monitor counts -per onc, check hemoccult (Ibrutinib can cause thrombocytopenia and bleeding) Hyponatremia - ?hypovolemic, Na 130 --> 129 after NS overnight. May need solute. -send urine osm, urine Na for further evaluation -cont NS, fluid restrict for now Hypokalemia - replace per protocol Hypertension - normotensive today -hold ARB/HCTZ for now while infectious issues sorted out, resume if clinically indicated AVR - murmur noted, at risk for endocarditis. -BCx's pending. Full code Dispo - cont obs status Subjective: Pt feels better today. No fevers/chills this am. Epigastric pain a little better. She feels this started when she started chemo, has been taking H2 devon at home. No BRBPR or melanotic stools. No CP, SOB or cough. Objective: Vital Signs Temp Pulse Resp BP Pulse Ox 36.8 C 93 20 127/61 H 90 L 12/19/17 08:00 12/19/17 08:00 12/19/17 08:00 12/19/17 08:00 12/19/17 08:00 Laboratory Results 12/19/17 04:53 12/19/17 04:53 12/18/17 12/19/17 12/20/17 05:59 05:59 05:59 Intake Total 2450 Output Total 500 Balance 1950 PT 14.1 SEC (12.0-15.0) 12/18/17 23:44 INR 1.07 (0.83-1.16) 12/18/17 23:44 - Physical Exam Constitutional: no apparent distress Eyes: PERRL Ears, Nose, Mouth, Throat: moist mucous membranes Cardiovascular: regular rate and rhythym, systolic murmur Respiratory: no respiratory distress, other (fine bibasilar crackles) Gastrointestinal: normoactive bowel sounds, soft, non-tender abdomen Skin: warm Musculoskeletal: full muscle strength Neurologic: AAOx3 Psychiatric: interacting appropriately ICD10 Worksheet Patient Problems: Problems Problem Status Onset Fever Acute Sepsis Acute Chest pain Acute Lymphoma Acute Maintenance chemotherapy Acute
[2017-12-19] MEDS ORDERED: PROTOCOL POTASSIUM 1 DOSE MISC PRN (10:23)
--- NOTE | 2017-12-19 11:00 | PDCONSULT ---
Dressage Instructor Note: Hematology/oncology consultation note Referring provider: Dr. Lama Reason for referral: Fever with a history of mantle cell lymphoma Outpatient oncologist: Dr. Suyapa Ndiaye History of present illness: Ariane is a very pleasant 82-year-old female with history of mantle cell lymphoma currently receiving rituximab and ibrutinib who was admitted to the emergency room for symptoms of fever alongside rigors. The patient called me yesterday evening around 8:00 p.m. Stating that she had significant rigors, chills and fever up to 103 F. She states that she with an unable to take a deep breath and was having epigastric pain. She was admitted through the emergency room and placed on broad-spectrum antibiotics due to concern for possible pneumonia on CT of the chest. She has no cough or sputum production. She received IV vancomycin and cefepime on admission. Since her presentation she has been afebrile. Her rigors have essentially resolved. She does have some epigastric pain. She has no bleeding symptoms. She states she has had 4 bowel movements that have been nonbloody and without melena. With regard to her oncology history she initially received rituximab and bendamustine with excellent response. She has since been on rituximab and ibrutinib for the last week. She received a dose of subcutaneous rituximab yesterday around 8 hr prior to her symptoms. She has never had a reaction to rituximab in the past. Review of systems: A 12 point review of systems was obtained and was otherwise negative unless stated in HPI. Past medical history: History of aortic stenosis with valve replacement 2013 Anxiety Hypertension Coronary artery disease Past medical history: Aortic valve replacement 2014 Appendectomy Tonsillectomy Ovarian cystectomy Social history: She currently lives in [facility] with her . She does not smoke. Family history: She has family history hypertension no cancer in the family. Generic Name Dose Route Start Last Admin Trade Name Freq PRN Reason Stop Dose Admin Sodium Chloride 1,000 mls @ 75 mls/hr 12/19/17 02:15 12/19/17 03:34 Ns IV 06/17/18 02:14 1,000 mls CONT LEENA Administration Lorazepam 0.5 - 1 mg 12/19/17 02:03 12/19/17 02:38 Ativan Injection IVP 06/17/18 02:02 1 mg Q8HRS PRN Administration Anxiety Discontinued Medications Generic Name Dose Route Start Last Admin Trade Name Freq PRBony Reason Stop Dose Admin Acetaminophen 1,000 mg 12/18/17 23:24 12/19/17 00:03 Tylenol PO 12/18/17 23:25 Not Given EDNOW ONE Acetaminophen 650 mg 12/19/17 00:01 12/19/17 00:03 Tylenol PO 12/19/17 00:02 650 mg EDNOW ONE Administration Al Hydroxide/Mg Hydroxide 30 ml 12/19/17 01:27 12/19/17 01:34 Maalox Susp PO 12/19/17 01:28 30 ml ONCE ONE Administration Famotidine 20 mg 12/18/17 23:33 12/18/17 23:40 Pepcid IVP 12/18/17 23:34 20 mg EDNOW ONE Administration Hyoscyamine Sulfate 0.25 mg 12/19/17 01:27 12/19/17 01:34 Levsin, Hyomax-Sl PO 12/19/17 01:28 0.25 mg ONCE ONE Administration Sodium Chloride 1,000 mls @ 0 mls/hr 12/18/17 23:23 12/18/17 23:43 Ns IV 12/18/17 23:24 1,000 mls EDNOW ONE Administration Protocol Wide Open Sodium Chloride 1,000 mls @ 0 mls/hr 12/18/17 23:32 12/18/17 23:47 Ns IV 12/18/17 23:33 1,000 mls ONCE ONE Administration Wide Open Cefepime HCl 2 gm/ Sodium 100 mls @ 200 mls/hr 12/19/17 00:20 12/19/17 01:09 Chloride IV 12/19/17 00:49 100 mls EDNOW ONE Administration Protocol Vancomycin/Sodium Chloride 250 mls @ 250 mls/hr 12/19/17 00:40 12/19/17 01:11 Vancomycin 1 Gm (Premix) IV 12/19/17 01:39 250 mls EDNOW ONE Administration Protocol Lidocaine 15 ml 12/19/17 01:27 12/19/17 01:34 Lidocaine 2% Viscous PO 12/19/17 01:28 15 ml ONCE ONE Administration Allergies: Noted to be allergic to Keflex and a malaria medication. Physical examination: Temp Pulse Resp BP Pulse Ox 36.8 C 93 20 127/61 H 90 L 12/19/17 08:00 09/13/18 08:00 12/19/17 08:00 12/19/17 08:00 12/19/17 08:00 General: Pleasant-appearing female appears in no acute distress conversant HEENT: Normocephalic atraumatic, opiates clear extraocular movements are intact pupils equal round reactive to light Lymph: No appreciable lymphadenopathy Cardiovascular: 4/6 systolic murmur appreciated throughout otherwise regular rate and rhythm no murmurs gallops or rubs Pulmonary: Bilateral crackles appreciated the bases good air entry no respiratory distress. Abdomen: Soft, nontender nondistended bowel sounds are present no hepatosplenomegaly MSK: No cyanosis clubbing or edema Neuro: Cranial 2 through 12 intact motor and sensation intact throughout Psych: Appropriate affect Assessment and plan: 1. Fevers: She has had ongoing history of fever since her diagnosis. This was thought to be related to her underlying mantle cell lymphoma. She had been on steroids which has helped with the fevers but that has since been tapered down and has been discontinued. I wonder if some of this is related to the steroid being discontinued although her mantle cell is under excellent control. It would be rare to have fevers related to rituximab after multiple exposures but that certainly could be a possibility. I think it is appropriate to rule out underlying infectious causes as well. It is noted that she is on broad- spectrum antibiotics with cefepime. I do not feel that she needs to be on vancomycin at this point. 2. Mantle cell lymphoma: I have recommended that she discontinue ibrutinib for the time being until her fevers and thrombocytopenia are addressed. 3. Thrombocytopenia: On presentation to the infusion center platelet count was 100. Typically she runs between 150-200. She is now in the 60s. She has no bleeding symptoms. I suspect this is related to the ibrutinib. We will hold her burden of for the time being. 4. Anemia: Her hemoglobin did drop by 1 g. She has no bleeding symptoms. I have recommended a fecal occult blood. Some of this could just be dilutional.
--- NOTE | 2017-12-19 11:01 | GCON ---
INFECTIOUS DISEASE CONSULTATION DATE OF CONSULTATION: 12/19/2017 REFERRING PHYSICIAN: Bianca Cristobal MD REASON FOR CONSULTATION: Recurrent fever in an immunocompromised host. 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 She was initially treated with bendamustine and rituximab and resumed chemotherapy, December 11, with ibrutinib and subcutaneous rituximab. Of note, recently she was hospitalized from 11/29 through 12/03 for evaluation of fever. At that time, the patient had a PICC line in place which was removed. Blood cultures remained negative, and an unclear source of fever was identified at that time. I saw patient in followup in clinic on 12/05/2017, and she had had a transient fever again at that time. Again, blood cultures were repeated, which were negative. She had a rash at that time that was VZV negative. Her fever resolved, and she was shortly after that started on steroids which were tapered off a couple days ago. Current problems include receiving her rituximab injection yesterday at around 10 o' clock. She was feeling quite well. She stated that she felt normal without any fatigue. She made her dinner for her and her and walked the park. She had the sudden onset of rigors, mid epigastric pain, and fever to 103, and it was recommended that she present to the emergency room for evaluation. In the emergency room, patient was found to have thrombocytopenia, expected anemia , and mild bandemia. Her lactate was elevated, and she was febrile to 103. She was not tachycardic or hypotensive. Blood cultures were obtained, and a CT scan of the abdomen was performed. CT scan was personally reviewed by me, which showed some possible infiltrates in the right greater than left lung bases. She did have some thickening of the stomach lining, but this was attributed to peristalsis. No other source identified, and it was noted that her lymphadenopathy has improved. The patient states that she does feel improved today. She states that leading up to this more severe mid epigastric pain and reflux symptoms she was having some intermittent reflux and a PPI was recommended. She denies any cough or shortness of breath. The midepigastric pain is less intense today and improved with a GI cocktail in the emergency room. Her bowel movements are soft, and she denies diarrhea. Her bowel movements are a bit more frequent. She denies sick contact, eating recent raw foods. She has not had any recent travel other than previously what was reviewed by me in past notes. She traveled to [place] a month or so ago for a 2nd opinion at [facility]. They have no pets. PAST MEDICAL HISTORY: Aortic valve replacement for aortic stenosis, she has a porcine valve; coronary artery disease; hyperlipidemia; hypertension; mantle cell lymphoma as per HPI. PAST SURGICAL HISTORY: Aortic valve replacement, June of 2013; appendectomy; nasal fracture repair; ovarian cystectomy. FAMILY HISTORY: Positive for heart disease, thyroid disorder. SOCIAL HISTORY: She is . She has 2 adult children. Rare alcohol. No smoking. She is originally from [facility]. ALLERGIES: She carries a cephalosporin allergy but has tolerated cefepime; azithromycin causes muscle spasms; mefloquine, dizziness; Zocor, myalgias; dizziness with paroxetine. MEDICATIONS: Patient received a 2 g dose of cefepime and vancomycin 1 g in the emergency room and was started on 1 g q.12 of cefepime. REVIEW OF SYSTEMS: A complete 10-point review of systems was performed and is negative except as mentioned in the HPI. PHYSICAL EXAM: VITAL SIGNS: Blood pressure 131/62, heart rate is 97, respiratory rate is 16, saturation 92% on 2 L, T-current 37.3, T-max 39.2. GENERAL: This is a relatively well-appearing woman who appears remarkably younger than stated age. HEENT: No conjunctival hemorrhages. Oropharynx: Good dentition. Moist mucous membranes. No oral ulcerations. She has mild hairy leukoplakia that is dark. NECK: Supple. No lymphadenopathy. CARDIOVASCULAR: Regular rate and rhythm with expected and stable systolic murmur. CHEST: She had bibasilar crackles about [address] on the right , just at the base on the left. No wheezes. ABDOMEN: Soft, nontender. Bowel sounds are present. She did have some mild midepigastric discomfort to deep palpation. EXTREMITIES: No clubbing, cyanosis, or edema. No joint swelling. SKIN: No rashes. NEUROLOGIC: She is alert, oriented x4. Moving all 4 extremities equally. She had some mild generalized weakness. LABORATORY DATA: White count is 3.3 with an ANC of almost 3000. She does have 20% bands, hematocrit 32, platelets of 69. Two weeks ago, platelets were 341. Creatinine is normal at 0.6. LFTs on the were within normal limits. She has a slightly low albumin. Past serology indicates negative hepatitis B surface antigen, antibody, core; negative hepatitis C; negative HIV. Blood cultures were obtained in the emergency room, 12/18/2017, and are pending. Blood cultures from 12/05/2017, 11/29/2017, 11/23/2017, are all negative. IMAGING: As per HPI. ASSESSMENT AND PLAN: 82-year-old woman who is well known to me with mantle cell lymphoma, who has recently started ibrutinib and resumed rituximab for her lymphoma. This translates into both B- and T-cell dysfunction, putting her at risk for a fairly broad spectrum of infectious diseases. Her exam today does reveal crackles and she is requiring some oxygen this morning, but oddly, she does not have respiratory symptoms. Imaging could be interpreted as possible pneumonia. With sudden onset, certainly could consider typical pneumonia pathogens such as pneumococcus and Haemophilus influenzae. She does have an underlying porcine aortic valve. Therefore, there is always concern for prosthetic valve endocarditis, and blood cultures are pending. I would also consider viral etiologies. Patient does not have CMV serologies in the past. We will send serologies and CMV PCR. If midepigastric pain continues as well as fever, may need to consider GI evaluation. Recent literature also suggests possible increasing risk for fungal etiologies with therapy with ibrutinib and rituximab. Will send cryptococcal antigen. Could consider other serologies like coccidioidomycosis, blastomycosis, etc for further workup if fever continues. Respiratory viral etiologies are also within the realm of consideration and will send a viral respiratory PCR. --continue cefepime, adjust dose to 1gm IV q8h. She not neutropenic therefore high dose not required and at this point not at high risk for pseudomonas --dc vancomycin. PICC line out several weeks ago, cardiac exam stable. Thrombocytopenia was also noted. This could be due to underlying infection, but also one of the complications of ibrutinib. Time was 80 minutes, greater than 50% of the time was spent with education and counseling, review of the records, and relaying of plan of further workup to patient and her at bedside. /[id number]/MODL MTDD
[2017-12-19] MEDS: CEFEPIME HCL 1 GM in NS 50 ML IV SCH ×2 (11:10→18:55)
[2017-12-19] MEDS ORDERED: CEFEPIME HCL 1 GM in NS 50 ML IV SCH (13:00)
--- NOTE | 2017-12-19 14:31 | ASMTCMCOM ---
CM Note CM Note Notes: Chart and patient care reviewed. Seen in rounds. Admitted with fever. Better with medical interventions. Lives independently in [place] with her . Has discharged to home no needs in past. CM to follow for needs. Plan: Likely to dc to home independently when medically cleared for discharge. Date Signed: 12/19/2017 02:06 PM Electronically Signed By:Destiny Hines RN
[2017-12-19] MEDS ORDERED: LORazepam 0.5 MG TAB PO PRN (14:50)
[2017-12-19] MEDS: PANTOPRAZOLE SODIUM 40 MG TAB PO SCH (14:50)
[2017-12-19] MEDS ORDERED: OLMESARTAN PO SCH (15:00)
[2017-12-19] MEDS ORDERED: [UNRECOGNIZED DRUG - OTHER] PO SCH (15:00)
[2017-12-19] MEDS ORDERED: HYDROCHLOROTHIAZIDE PO SCH (15:00)
[2017-12-19] MEDS: ASPIRIN 81 MG CHEWABLE TAB PO SCH (16:06)
[2017-12-19] MEDS ORDERED: POTASSIUM CL 10 MEQ TAB PO ONE (16:12)
--- NOTE | 2017-12-19 17:04 | PDMN ---
Medical Necessity Medical necessity: Change to IP, as of 12/19/17, per MD & MCG M-160; los >2 mn for ongoing management of severe sepsis r/t pneumonia vs GI source vs viral vs drug fever w/tachycardia, fever, elevated lactate, pancytopenia & abdominal pain ; requiring further monitoring, ID/Oncology consults, IV abx & IVFs; comorbid advanced age, mantel cell lymphoma on Rituximab & Ibrutinib, CAD
[2017-12-19] MEDS ORDERED: POTASSIUM CL 20 MEQ TAB PO ONE ×2 (21:04→21:45)
[2017-12-19] MEDS: PRAVASTATIN SODIUM 20 MG TAB PO SCH (21:34)
[2017-12-20] MEDS: CEFEPIME HCL 1 GM in NS 50 ML IV SCH ×2 (01:43→09:22)
[2017-12-20 05:32] LABS: PLATELET COUNT 61 10^3/uL (150-400)
[2017-12-20] MEDS ORDERED: POTASSIUM CL 10 MEQ TAB PO ONE ×2 (07:48→20:48)
[2017-12-20] MEDS: valACYclovir 500 MG TAB PO SCH (08:28)
[2017-12-20] MEDS: PANTOPRAZOLE SODIUM 40 MG TAB PO SCH (08:29)
--- NOTE | 2017-12-20 10:00 | PCMIDPN ---
Assessment/Plan: # Mantle cell lymphoma, ANC 2400 # Isolated fever and rigors: completely resolved, no clear source. Lack of positive microbiologic data & imaging support fever could have been reaction to chemo regimen. O2 sats normal on RA --dc cefepime and monitor --if no fever, DC okay with ID, ID rounding on patient not required for dc --CMV studies and cryptococcal An pending # Thrombocytopenia: maybe related to Rituxan/ibrutinib # Bibasilar crackles: Suspect atelectasis, patient readily admits she takes shallow inspiration. Encouraged "yoga breaths" Medications cefepime 1 g IV Q 8, # 2 Microbiology 12/19/17 11:00 respiratory PCR negative 12/18/17 23:44 Blood culture (2) NGTD Subjective: feels normal now. Wants to go home jaspreet no abdominal pain remains no cough, no SOB no rash Objective: Vital Signs Temp Pulse Resp BP Pulse Ox 36.8 C 95 16 122/73 H 92 12/20/17 08:32 12/20/17 08:32 12/20/17 08:32 12/20/17 08:32 12/20/17 08:32 Laboratory Results 12/20/17 04:39 12/20/17 04:39 12/19/17 12/20/17 12/21/17 05:59 05:59 05:59 Output Total 1850 Balance -1850 - Physical Exam General Appearance: alert, no apparent distress, non-toxic EENT: normal ENT inspection, No thrush Respiratory: crackles, No accessory muscle use Neck: supple Cardiac/Chest: regular rate, rhythm, systolic murmur Extremities: No pedal edema Abdomen: normal bowel sounds, non-tender, soft Skin: No rash Neuro/Psych: alert, normal mood/affect, oriented x 3 - Time Spent With Patient Time Spent with Patient: greater than 35 minutes (Discussed with hospitalist and Oncology) Time Spent with Patient: Greater than 35 minutes spent on this patients care, greater than 50% of time spent counseling, educating, and coordinating care regarding the above mentioned plan. ICD10 Worksheet Patient Problems: Problems Problem Status Onset Fever Acute Sepsis Acute Chest pain Acute Lymphoma Acute Maintenance chemotherapy Acute
--- NOTE | 2017-12-20 10:46 | SOAPPROG ---
SOAP Progress Note Assessment/Plan: Assessment and Plan: 1. Fevers: She had that documented fever of 103 F 8 hr following subcutaneous rituximab. She has received Rituxan multiple times prior and has not had a reaction. She had no skin reaction. She had ongoing fevers that was initially attributed to her mantle cell lymphoma was on corticosteroids. She slowly tapered off of dexamethasone. Since presentation, she has been afebrile and off of steroids. She was treated for sepsis her cultures have been negative. I have recommended discontinuation of antibiotics and monitoring for 24 hr. If she is stable she could potentially go home over the weekend. 2. Thrombocytopenia: Her platelet count has been slowly downtrending since starting ibrutinib. It is still down trending to 61 with her normal platelet count being in the 150-200 range. She has no bleeding symptoms. I would recommend no transfusion at this point. I recommend a repeat platelet count tomorrow. 3. Mantle cell lymphoma: She initially received rituximab and bendamustine with excellent response. She has has since been on rituximab and ibrutinib. I have recommended holding ibrutinib for the time being specifically with her thrombocytopenia. I would have her repeat assess with Dr. Ndiaye next week in clinic. A total 30 min was placed on [id number] time with greater than 50% of this being spent on counseling and coordination of her care. 12/20/17 10:42 Subjective: She reports feeling well today than 48 hr ago. She states that she slept well over the last 24 hr. She has no fevers, chills cough or sputum production. She has no diarrhea or symptoms of bleeding. She is anxious to go home. Objective: Vital Signs Temp Pulse Resp BP Pulse Ox 36.8 C 95 16 122/73 H 92 12/20/17 09:20 12/20/17 08:32 12/20/17 08:32 12/20/17 08:32 12/20/17 08:32 Laboratory Results 12/20/17 04:39 12/20/17 04:39 12/19/17 12/20/17 12/21/17 05:59 05:59 05:59 Output Total 1850 Balance -1850 PT 14.1 SEC (12.0-15.0) 12/18/17 23:44 INR 1.07 (0.83-1.16) 12/18/17 23:44 Physical examination: Temp Pulse Resp BP Pulse Ox 36.8 C 95 16 122/73 H 92 12/20/17 09:20 12/20/17 08:32 12/20/17 08:32 12/20/17 08:32 12/20/17 08:32 O2 (L/minute) 2 General: Pleasant, conversant appears in no acute distress HEENT: Opiates clear extraocular movements are intact pupils equal round reactive to light Pulmonary: Clear to auscultation bilaterally Cardiovascular: 4/ 6 systolic murmur appreciated throughout regular rate and rhythm Neuro: Motor and sensation intact MSK: No cyanosis clubbing or edema ICD10 Worksheet Patient Problems: Problems Problem Status Onset Fever Acute Sepsis Acute Chest pain Acute Lymphoma Acute Maintenance chemotherapy Acute
--- NOTE | 2017-12-20 12:52 | ASMTCMCOM ---
CM Note CM Note Notes: Patient'a plan of care discussed during interdisciplinary rounds. She has responded well to medical interventions. Now afebrile. Plan to monitor overnight off antibiotics then likely to dc home. No needs identified. CM available should needs arise. Plan: DC to home independently when medically cleared for discharge. Date Signed: 12/20/2017 12:32 PM Electronically Signed By:Destiny Hines RN
[2017-12-20] MEDS: ASPIRIN 81 MG CHEWABLE TAB PO SCH (14:22)
--- NOTE | 2017-12-20 15:45 | HOSPPROG ---
Hospitalist Progress Note Assessment/Plan: Severe sepsis - (Temp, HR, elevated lactate). Consider viral etiology versus drug fever from Rituxan. GI source or PNA seem unlikely. Lactate normalized, UA neg. Not neutropenic. Discussed with ID and Onc. Viral serologies pending. Cxs remain ngtd. -d/c atbx and monitor for 24 hrs, likely d/c home in am if remains afebrile Epigastric pain - ?gastritis. antral thickening on CT, symptoms improved -cont PPI Mantel Cell lymphoma - received 2nd Rituxan infusion day of admission and developed fever of 103 same day, prompting admission -holding Ibrutinib Pancytopenia - suspect 2/2 chemo -no indication for transfusion, monitor counts -hemoccult negative Hyponatremia - ?hypovolemic, Na 130 --> 133 after NS and fluid restriction Hypokalemia - replace per protocol Hypertension - remains normotensive -holding ARB/HCTZ for now AVR - murmur noted, at risk for endocarditis. -BCx's ngtd Full code Dispo - change to inpt for ongoing management of sepsis and fever without a source Subjective: Pt feels better. No fevers overnight. Taking po fairly well. No abdominal pain, N/V. Objective: Vital Signs Temp Pulse Resp BP Pulse Ox 36.8 C 95 16 127/72 H 91 L 12/20/17 15:38 12/20/17 15:38 12/20/17 15:38 12/20/17 15:38 12/20/17 15:38 Laboratory Results 12/20/17 04:39 12/20/17 04:39 12/19/17 12/20/17 12/21/17 05:59 05:59 05:59 Output Total 1850 Balance -1850 PT 14.1 SEC (12.0-15.0) 12/18/17 23:44 INR 1.07 (0.83-1.16) 12/18/17 23:44 - Physical Exam Constitutional: no apparent distress Eyes: PERRL Ears, Nose, Mouth, Throat: moist mucous membranes Cardiovascular: regular rate and rhythym Respiratory: no respiratory distress Gastrointestinal: normoactive bowel sounds, soft, non-tender abdomen Skin: warm Musculoskeletal: full muscle strength Neurologic: AAOx3 Psychiatric: interacting appropriately ICD10 Worksheet Patient Problems: Problems Problem Status Onset Fever Acute Sepsis Acute Chest pain Acute Lymphoma Acute Maintenance chemotherapy Acute
[2017-12-20] MEDS: PRAVASTATIN SODIUM 20 MG TAB PO SCH (21:22)
[2017-12-21 05:05] LABS: PLATELET COUNT 73 10^3/uL (150-400)
[2017-12-21] MEDS: PANTOPRAZOLE SODIUM 40 MG TAB PO SCH (08:07)
[2017-12-21] MEDS: valACYclovir 500 MG TAB PO SCH (08:07)
[2017-12-21 08:55] VITALS: BP 153/76
--- NOTE | 2017-12-21 15:23 | ASDISCHSUM ---
Discharge Information Plan Status:Home with No Needs Medically Cleared to Leave:12/21/2017 Discharge Date:12/21/2017 10:05 AM CM D/C Disposition:Home, Routine, Self-Care ADT D/C Disposition:Home, Routine, Self-Care Projected Discharge Date:12/21/2017 10:05 AM Transportation at D/C:Family Discharge Delay Reason: Follow-Up Date:12/21/2017 10:05 AM Discharge Slot: Final Diagnosis: Placement Information Patient Contact Information Contact Name:ANGE Relationship: Address:[address] [place] [address] Work Phone: City:[place] Alternate Phone: State/Zip Code:[place] [address] Email: Financial Information Financial Class:Medicare Primary Plan Desc:MEDICARE INPATIENT Primary Plan Number:[id number] Secondary Plan Desc:HARJINDER BERGERON POS Secondary Plan Number:[id number] Assessment Information LACE LACE Length of stay for Answers: 2 days current admission Acuity / Level of Answers: Yes Care: Did the patient have an inpatient admission? Comorbidities - select Answers: Any tumor (including all that apply lymphoma or leukemia) Other Notes: HTN; HLD # of Emergency department Answers: 5-8 visits in the last 6 months Score: 12 Date Signed: 12/21/2017 03:22 PM Electronically Signed By:CINTHYA Mcgee [facility] CM Progress Note CM Note CM Note Notes: Chart and patient care reviewed. Seen in rounds. Admitted with fever. Better with medical interventions. Lives independently in [place] with her . Has discharged to home no needs in past. CM to follow for needs. Plan: Likely to dc to home independently when medically cleared for discharge. Date Signed: 12/19/2017 02:06 PM Electronically Signed By:Destiny Hines RN [facility] CM Progress Note CM Note CM Note Notes: Patient'a plan of care discussed during interdisciplinary rounds. She has responded well to medical interventions. Now afebrile. Plan to monitor overnight off antibiotics then likely to dc home. No needs identified. CM available should needs arise. Plan: DC to home independently when medically cleared for discharge. Date Signed: 12/20/2017 12:32 PM Electronically Signed By:Destiny Hines RN Case Management Discharge Plan Note Case Management Discharge Discharge Order Complete? Answers: Yes Patient to Obtain Answers: via Family Medications Transportation Arranged Answers: Family/Friends Discharge Comments Notes: Pt is discharging home today with family and no CM needs. Date Signed: 12/21/2017 03:21 PM Electronically Signed By:CINTHYA Mcgee Intervention Information
--- NOTE | 2017-12-21 17:13 | GDS ---
DISCHARGE DIAGNOSES: 1. Fever without a source, possible drug fever related to Rituxan infusion. 2. Mantle cell lymphoma. 3. Epigastric pain, likely secondary to gastritis. 4. Pancytopenia secondary to chemotherapy. 5. Hyponatremia, improved. 6. Hypokalemia, resolved. 7. History of aortic valve replacement. 8. Hypertension. CONSULTANTS: 1. Dr. Karina Gray, Infectious Disease. 2. Dr. Eric Birmingham, oncology. HISTORY OF DETAILS: Please see history and physical dated December 19, 2017. In brief, the patient is an 82-year-old female with history of mantle cell lymphoma who has recently been treated with Rit uxan and ibrutinib, and presents to the emergency department with fever. She was admitted to [facility]. HOSPITAL COURSE: Patient admitted to the med/surg unit. She did meet criteria for severe sepsis on arrival with fever, tachycardia, and elevated lactate. She received IV fluid resuscitation. Her blo od cultures remain negative to date at discharge. Respiratory viral panel was negative. She had no evidence of consolidation to suggest pneumonia on her CT and chest x-ray. Urinalysis was negative fo r infection. It is thought possible this was Rituxan-related fever. Her lactate normalized with IV fluids. She remained afebrile throughout the rest of the hospitalization. She was initially covered with IV cefepime, but we discontinued her antibiotics and she remained afebrile for 24 hours since h er last dose of antibiotics. She was started on a PPI for epigastric pain, which resolved. She may have gastritis based on antral thickening seen on her CT. If this does not improve with PPI therapy, she would warrant outpatient referral to Gastroenterology for consideration of upper endoscopy. Rel ating to her mantle cell lymphoma, her ibrutinib was held given her pancytopenia. Her platelet count dropped as low as 60,000, though it has improved to the 70,000 range at discharge. She had no indic ation for transfusion during her hospitalization. Her Benicar was held given mostly low blood pressu res of 90s over 60s. This can be restarted as clinically indicated in the outpatient setting. She a lso had a mild hyponatremia, although this improved from 129 to 133 with fluid restriction. On the d ay of discharge, patient remains afebrile. Her vital signs are stable. She wishes to go home. DISPOSITION: Patient is discharged home in stable condition. FOLLOWUP: 1. Dr. Suyapa Ndiaye, [facility] [place]. 2. Primary care. DISCHARGE MEDICATIONS: Please see [facility] completed outpatient medication list. New medications on discharge include: 1. Protonix 40 mg p.o. daily #30, no refills. 2. Aspirin is held due to her thrombocytopenia and bleeding risk. 3. Ibrutinib is also held until she has follow up with her primary oncologist. In addition, Benicar was held given her intermittent hypotension and she should follow up with her primary care to determ ine at what point this should be restarted. She will continue all outpatient medications as previous ly prescribed. /[id number]/MODL
== END 2017-12-21 10:05 | disposition home or self-care (01) | DRG 871 ==
LOC: F1N 12-19 01:56 → OBSVTOIN 12-19 15:32
PROVIDERS: ADMIT Family Medicine; ATTEND Family Medicine
DX: A41.9 Sepsis, unspecified organism (principal); D61.810 Antineoplastic chemotherapy induced pancytopenia; C83.10 Mantle cell lymphoma, unspecified site; E87.1 Hypo-osmolality and hyponatremia; R65.20 Severe sepsis without septic shock; R50.2 Drug induced fever; T37.8X5A Adverse effect of other specified systemic anti-infectives and antiparasitics, initial encounter; E86.9 Volume depletion, unspecified; K29.70 Gastritis, unspecified, without bleeding; E87.6 Hypokalemia; I10 Essential (primary) hypertension; Z95.3 Presence of xenogenic heart valve
CPT/HCPCS: 86644-90; 86645-90; 87497-90; 96365; 97165-GO; G8987-GO-CI; G8988-GO-CI; G8989-GO-CI; J0692; J2060; J3370; Q9967

== ENCOUNTER → 2018-03-20 | Outpatient (CLI) | payer OTHER | LOC: BHFA 12:00 | PROVIDERS: ATTEND Internal Medicine Cardiovascular Disease | DX: I34.0 Nonrheumatic mitral (valve) insufficiency (principal) ==

== ENCOUNTER → 2018-04-15 | Outpatient (CLI) | payer OTHER | LOC: FIMAGING 14:30 | PROVIDERS: ATTEND Internal Medicine | DX: Z12.31 Encounter for screening mammogram for malignant neoplasm of breast (principal) ==